=== PATIENT | female | born 1970 | race Caucasian/White ===

== ENCOUNTER → 2017-10-25 12:02 | Outpatient (CLI) | payer MEDICARE, MEDICAID, SELFPAY | PROVIDERS: PCP Family Medicine; Visit Provider Urology | DX: R31.9 Hematuria, unspecified (principal) | CPT/HCPCS: 87077; 87086; 87186 ==

== ENCOUNTER 2017-11-05 10:30 | Outpatient (BNVA) | payer MEDICARE, MEDICAID, SELFPAY | END 2017-11-05 10:31 | PROVIDERS: Visit Provider Urology | DX: N31.9 Neuromuscular dysfunction of bladder, unspecified (principal); N13.70 Vesicoureteral-reflux, unspecified; Z98.890 Other specified postprocedural states; Q05.9 Spina bifida, unspecified | CPT/HCPCS: 99212 ==

== ENCOUNTER 2017-11-15 08:33 | Outpatient (CLI) | payer MEDICARE, MEDICAID, SELFPAY | END 2017-11-15 08:53 | PROVIDERS: PCP Family Medicine; Visit Provider Nurse Practitioner Gerontology | DX: N31.9 Neuromuscular dysfunction of bladder, unspecified (principal); R35.0 Frequency of micturition | CPT/HCPCS: 64566; 81003; 99214 ==

== ENCOUNTER 2017-11-19 09:46 | Outpatient (CLI) | payer MEDICARE, MEDICAID, SELFPAY | END 2017-11-19 10:06 | PROVIDERS: PCP Family Medicine; Visit Provider Urology | DX: R10.9 Unspecified abdominal pain (principal) | CPT/HCPCS: 87077; 87086; 87186 ==

== ENCOUNTER → 2017-11-22 09:31 | Outpatient (BNVA) | payer MEDICARE, MEDICAID, SELFPAY | PROVIDERS: PCP Family Medicine; Visit Provider Nurse Practitioner Gerontology | DX: N31.9 Neuromuscular dysfunction of bladder, unspecified (principal); R35.0 Frequency of micturition | CPT/HCPCS: 64566; 99213 ==

== ENCOUNTER → 2017-11-29 08:39 | Outpatient (BNVA) | payer MEDICARE, MEDICAID, SELFPAY | PROVIDERS: Visit Provider Nurse Practitioner Gerontology | DX: N31.9 Neuromuscular dysfunction of bladder, unspecified (principal); R35.0 Frequency of micturition | CPT/HCPCS: 64566; 99213 ==

== ENCOUNTER → 2017-12-08 12:24 | Outpatient (BNVA) | payer MEDICARE, MEDICAID, SELFPAY | PROVIDERS: Visit Provider Nurse Practitioner Gerontology | DX: N31.9 Neuromuscular dysfunction of bladder, unspecified (principal); R35.0 Frequency of micturition | CPT/HCPCS: 64566; 81003; 99213 ==

== ENCOUNTER → 2017-12-13 09:17 | Outpatient (BNVA) | payer MEDICARE, MEDICAID, SELFPAY | PROVIDERS: Visit Provider Nurse Practitioner Gerontology | DX: N31.9 Neuromuscular dysfunction of bladder, unspecified (principal); R35.0 Frequency of micturition | CPT/HCPCS: 64566; 99213; 99214 ==

== ENCOUNTER → 2017-12-20 08:45 | Outpatient (BNVA) | payer MEDICARE, MEDICAID, SELFPAY | PROVIDERS: Visit Provider Nurse Practitioner Gerontology | DX: N31.9 Neuromuscular dysfunction of bladder, unspecified (principal) | CPT/HCPCS: 64566; 81003; 99214 ==

== ENCOUNTER 2017-12-27 00:35 | Outpatient (CLI) | payer MEDICARE, MEDICAID, SELFPAY ==
--- NOTE | 2017-12-27 08:15 | DI.US_ITS ---
SYMPTOM/DIAGNOSIS: CVA TENDERNESS,M54.9, DORSALGIA RENAL ULTRASOUND: The prevoid bladder volume measured 497 cc's. Both ureteral jets were visualized. No bladder mass or wall thickening is seen. Postvoid residual is 11 cc's. There is minimal trabeculation of the bladder wall. The kidneys are normal in size and show normal parenchymal thickness and echogenicity. No hydronephrosis or calcifications are seen. IMPRESSION: Trabeculated bladder wall. No evidence of hydronephrosis.
== END 2017-12-27 00:55 ==
PROVIDERS: PCP Family Medicine; Visit Provider Nurse Practitioner Gerontology
DX: N32.89 Other specified disorders of bladder (principal); R10.84 Generalized abdominal pain; M54.89 Other dorsalgia; N31.9 Neuromuscular dysfunction of bladder, unspecified
CPT/HCPCS: 64566; 76770; 99214

== ENCOUNTER → 2018-01-03 10:45 | Outpatient (BNVA) | payer MEDICARE, MEDICAID, SELFPAY | PROVIDERS: PCP Family Medicine; Visit Provider Urology | DX: N31.9 Neuromuscular dysfunction of bladder, unspecified (principal) | CPT/HCPCS: 64566; 99211; 99213 ==

== ENCOUNTER → 2018-01-11 08:07 | Outpatient (BNVA) | payer MEDICARE, MEDICAID, SELFPAY | PROVIDERS: PCP Family Medicine; Visit Provider Urology | DX: N31.9 Neuromuscular dysfunction of bladder, unspecified (principal) | CPT/HCPCS: 64566; 99212; 99213 ==

== ENCOUNTER 2018-01-16 10:23 | Outpatient (REF) | payer MEDICARE, MEDICAID, SELFPAY | END 2018-01-16 10:43 | LOC: LBN 10:23 | PROVIDERS: PCP Family Medicine; Visit Provider Urology | DX: N31.9 Neuromuscular dysfunction of bladder, unspecified (principal) | CPT/HCPCS: 87070; 87205 ==

== ENCOUNTER → 2018-01-18 08:15 | Outpatient (BNVA) | payer MEDICARE, MEDICAID, SELFPAY | PROVIDERS: PCP Family Medicine; Visit Provider Nurse Practitioner Gerontology | DX: N31.9 Neuromuscular dysfunction of bladder, unspecified (principal); R35.0 Frequency of micturition | CPT/HCPCS: 64566; 99214 ==

== ENCOUNTER 2018-01-18 09:39 | Outpatient (REF) | payer MEDICARE, MEDICAID, SELFPAY | END 2018-01-18 09:59 | LOC: LBN 09:39 | PROVIDERS: PCP Family Medicine; Visit Provider Nurse Practitioner Gerontology | DX: N20.9 Urinary calculus, unspecified (principal) | CPT/HCPCS: 87077; 87086; 87186 ==

== ENCOUNTER → 2018-01-24 10:15 | Outpatient (BNVA) | payer MEDICARE, MEDICAID, SELFPAY | PROVIDERS: PCP Family Medicine; Visit Provider Nurse Practitioner Gerontology | DX: N31.9 Neuromuscular dysfunction of bladder, unspecified (principal); R35.0 Frequency of micturition | CPT/HCPCS: 64566; 99213 ==

== ENCOUNTER → 2018-02-01 08:46 | Outpatient (BNVA) | payer MEDICARE, MEDICAID, SELFPAY | PROVIDERS: PCP Family Medicine; Visit Provider Nurse Practitioner Gerontology | DX: N31.9 Neuromuscular dysfunction of bladder, unspecified (principal); R35.0 Frequency of micturition | CPT/HCPCS: 64566; 99214 ==

== ENCOUNTER → 2018-04-01 08:44 | Outpatient (BNVA) | payer MEDICARE, MEDICAID, SELFPAY | PROVIDERS: PCP Family Medicine; Visit Provider Urology | DX: N31.9 Neuromuscular dysfunction of bladder, unspecified (principal); N13.70 Vesicoureteral-reflux, unspecified; Q05.9 Spina bifida, unspecified; Z87.440 Personal history of urinary (tract) infections | CPT/HCPCS: 51729; 51784; 81003; 99212 ==

== ENCOUNTER 2018-04-07 16:01 | Outpatient (REF) | payer MEDICARE, MEDICAID, SELFPAY | END 2018-04-07 16:21 | LOC: LBN 16:01 | PROVIDERS: PCP Family Medicine; Visit Provider Nurse Practitioner Gerontology | DX: R31.9 Hematuria, unspecified (principal) | CPT/HCPCS: 87086 ==

== ENCOUNTER 2018-04-11 09:02 | Day surgery (SDC) | payer MEDICARE, MEDICAID, SELFPAY ==
[2018-04-11] VITALS (7 sets, daily range): BP systolic 104–118; BP diastolic 60–86; PULSE 60–66; RESP 11–19; TEMP 36–36.7; O2SAT 94–100
[2018-04-11] MEDS: GENTAMICIN 120 MG in Normal Saline 100 ML 206 MG IVPB (10:15)
[2018-04-11] MEDS: Lactated Ringers 1,000 ML 80 ML IV (10:45)
--- NOTE | 2018-04-11 10:45 | BLADDER_PTH ---
PATIENT: JaradJune Maryanne LOC: [facility] U#:[id number] AGE/SX: 48/F ROOM: RE04/11/[address]: Candido Kasper MD : [id number] BED: DIS: 04/11/2018 SPEC #: [id number] RECD: 04/11/18 12:53 STATUS: ANI REQ #: [id number] KENYON: 04/11/18 10:[address]: Candido Kasper DEPT: Surgical Specimen RECD BY: Rosa Mason ENTERED: 04/11/18 12:54 SP TYPE: Bladder OTHR DR: Melanie Calhoun MD, DC Tissues: 1 - BLADDER BIOPSY Procedures: GROSS AND MICRO LEVEL 4 Comments: [id number]
[2018-04-11] MEDS: Lidocaine 2% Jelly 6 ML SYR (10:46)
--- NOTE | 2018-04-11 11:13 | DI.RAD_ITS ---
SYMPTOM/DIAGNOSIS: VESICOURETERIC REFLUX C-ARM FLUOROSCOPY: Fluoroscopy Time: 20.8 sec 4.79 mGy Fluoroscopy was provided in the O.R. for Dr. Kasper. Please see procedure note for details.
[2018-04-11] MEDS: Omnipaque 300 MG/ML 50 ML BTL (11:14)
--- NOTE | 2018-04-11 11:21 | W.PM.DSUDISC ---
Discharge Plan Disposition Patient Disposition: HOME Condition: Stable Discharge Details Reason For Visit: Hematuria Attending Provider: Candido Kasper Primary Care Provider: Melanie Calhoun Home Meds and New Rx's Prescriptions: No Action diclofenac sodium [Voltaren] 1 % gel 4 gm TP QID Qty: 100 RF: 0 ketorolac 10 mg tablet 10 mg PO Q8H PRN PRN (Reason: pain) Qty: 14 RF: 0 albuterol sulfate 2.5 MG/3 ML solution for nebulization 2.5 mg Inhalation BID PRNQty: 60 RF: 3 nebulizers [AeroEclipse II Nebulizer] 1 EACH misc 1 ea Miscellaneous TID PRNQty: 1 RF: 0 catheter [Bard Coude Tip Catheter] 1 EACH misc 1 ea Miscellaneous 1-2 Qty: 2 RF: 12 Proventil HFA 6.7 GM HFA aerosol inhaler 2 puff Inhalation Q4 H PRN PRNQty: 3 RF: 4 montelukast [Singulair] 10 MG tablet 10 mg PO DAILY Qty: 90 RF: 12 Spiriva with HandiHaler 18 MCG capsule, w/inhalation device 1 puff Inhalation DAILY Qty: 90 RF: 12 ibuprofen 600 MG tablet 600 mg PO Q6H PRN Qty: 30 RF: 6 epinephrine [EpiPen 2-Raji] 0.3 MG/0.3 ML auto-injector 0.3 mg IM ONCE MDD 1 PRNQty: 2 RF: 1 estradiol [Estrace] 42.5 GM cream 1 g VG 3 times weekly Qty: 1 RF: 11 Breo Ellipta 200-25 mcg/dose blister with device 1 inh IH DAILY Qty: 60 RF: 4 sennosides [Senokot] 1 TAB tablet 1 ea PO PRN PRNRF: 0 loratadine 10 mg tablet 20 mg PO HS RF: 0 Discharge Instructions Additional Instructions: F/U with me @ 2 weeks - will need to review pathology reports at that time Activity:: Activity as Tolerated Diet:: As Tolerated Discharge Orders Discharge Orders: Discharge Order (Routine); Ordered 04/11/18 Ordered By: Candido Kasper Discharge Data Discharge Comment: Pt self caths, so do not expect pt to void on hr own prior to discharge DS: Diagnosis Discharge Diagnosis (1) Hematuria: Status: Acute
--- NOTE | 2018-04-11 15:33 | ROE_ITS ---
DATE OF OPERATION: April 11, 2018 PREOPERATIVE DIAGNOSIS: Hematuria. POSTOPERATIVE DIAGNOSIS: Hematuria. PROCEDURE: Cystoscopy, bladder biopsy, fulguration of bladder, left retrograde pyelogram, left flexi ble ureteroscopy, fulguration of renal mucosa. SURGEON: Candido Kasper M.D. ANESTHESIA: General. COMPLICATIONS: None. ESTIMATED BLOOD LOSS: Minimal. HISTORY: This is a 48-year-old woman who has a history of a neurogenic bladder related to spina bifi da. She performs intermittent catheterization. She has had recurrent UTIs and recurrent episodes of hematuria. We recently did urodynamic studies that showed a low bladder pressure. She has had ureteral reimplan tation surgery in the past. She presents now for cystoscopy, biopsy and fulguration of bladder mucosa for her recurrent hematuria . On previous studies she has been found to have some hemorrhagic mucosa in the upper pole of her left kidney as well. We will plan on doing ureteroscopy and fulgurating this area. OPERATIVE REPORT: The patient was brought to the Operating Room on 04/11/18. After successful inducti on of general anesthesia, she was placed in the dorsal lithotomy position. Her genitalia was prepped and draped. A 22 Guyanese rigid cystoscope was passed through the urethra into the bladder. The bladder was inspec radha with a 30-degree lens. Numerous erythematous patches were seen on the bladder mucosa posteriorly. I suspect these are relat ed to the path of her catheter, but we went ahead and biopsied these areas using a cold cup biopsy fo rceps. The biopsies were sent to Pathology for permanent section. The biopsy sites were then cauter ized using the Holmium laser. We then identified the left ureteral orifice and did a retrograde pyelogram to outline the calices. We passed a Glidewire through the access catheter up to the upper pole calyx. We then passed a dual- lumen catheter and a second wire. We removed the dual-lumen catheter and advanced the flexible urete roscope over the working wire. We then inspected each of the calices. Again, the mucosa in the uppe r pole calices appeared more erythematous than the mid or lower pole calices. On biopsy and cytology we know that no atypia was identified so we simply went ahead and fulgurated the mucosa using a 272- micron Holmium laser fiber. At the completion of the procedure, no active bleeding was identified. All scopes and the safety wir e were removed. The patient tolerated this procedure well with no complications.
== END 2018-04-11 13:25 | disposition home or self-care (01) ==
PROVIDERS: PCP Family Medicine; Visit Provider Urology
PROC: (CPT 52354; principal; 2018-04-11 10:30)
DX: N30.21 Other chronic cystitis with hematuria (principal); N31.8 Other neuromuscular dysfunction of bladder; Z87.440 Personal history of urinary (tract) infections
CPT/HCPCS: 52354; 52204; 88305; 74420; J1100; J1580; J2405; Q9967

== ENCOUNTER 2018-04-26 09:38 | Outpatient (CLI) | payer MEDICARE, MEDICAID, SELFPAY ==
[2018-04-26 11:42] LABS: HCT 45.6 % (36.0-46.0); HGB 15.3 g/dL (12.0-15.5); Mean Corp. HGB Concentration 33.6 g/dL (32.0-36.0); Mean Corpuscular Hemoglobin 30.7 pg (27.0-33.0); Mean Corpuscular Volume 91.4 fL (80-95); Mean Platelet Volume 9.2 fL (8.0-11.0); Platelet Count 395 x1000/uL (130-400); RBC 4.99 m/cumm (4.00-5.20); RBC Distribution Width 14.1 % (11.7-14.6); White Blood Cell Count 9.72 k/cumm (4.4-10.8)
[2018-04-26 12:03] LABS: ALT 26 U/L (12-78); AST 15 U/L (15-37); Albumin 3.6 g/dL (3.4-5.0); Alkaline Phosphatase 88 U/L (46-116); BUN 14 mg/dL (7-18); Bilirubin, Total 0.3 mg/dL (0.2-1.0); CREATININE 0.88 mg/dL (0.55-1.02); Calcium 8.9 mg/dL (8.5-10.1); Chloride 103 mmol/L (98-107); Cholesterol 304 mg/dL (50-200); Glucose 97 mg/dL (70-100); HDL Cholesterol 43 mg/dL (40-60); LDL CHOLESTEROL 224 mg/dL (<100); Potassium 4.4 mmol/L (3.5-5.1); Sodium 140 mmol/L (136-145); TSH (W/Ref FT4) 1.09 uIU/mL (0.358-3.74); Total Protein 7.4 g/dL (6.4-8.2); Triglyceride 158 mg/dL (30-150)
== END 2018-04-26 09:58 ==
PROVIDERS: PCP Family Medicine; Visit Provider Family Medicine
DX: E78.5 Hyperlipidemia, unspecified (principal); R21 Rash and other nonspecific skin eruption; N20.9 Urinary calculus, unspecified; K29.80 Duodenitis without bleeding; N13.70 Vesicoureteral-reflux, unspecified; I10 Essential (primary) hypertension
CPT/HCPCS: 36415; 80053; 80061; 81003; 83721; 85027; 99213; 84443

== ENCOUNTER → 2018-05-31 10:57 | Outpatient (BNVA) | payer MEDICARE, MEDICAID, SELFPAY | PROVIDERS: PCP Family Medicine; Visit Provider Urology | DX: N31.9 Neuromuscular dysfunction of bladder, unspecified (principal); R31.9 Hematuria, unspecified | CPT/HCPCS: 81003; 99213 ==

== ENCOUNTER → 2018-08-02 10:11 | Outpatient (BNVA) | payer MEDICARE, MEDICAID, SELFPAY | PROVIDERS: PCP Family Medicine; Visit Provider Urology | DX: N13.5 Crossing vessel and stricture of ureter without hydronephrosis (principal); Q05.9 Spina bifida, unspecified; I10 Essential (primary) hypertension; N31.9 Neuromuscular dysfunction of bladder, unspecified | CPT/HCPCS: 99213 ==

== ENCOUNTER 2018-08-04 01:33 | Outpatient (CLI) | payer MEDICARE, MEDICAID, SELFPAY ==
--- NOTE | 2018-08-04 08:30 | DI.NM_ITS ---
SYMPTOMS/DIAGNOSIS: CHECK DIFFERENTIAL RENAL FUNCTION, PHYSIOLOGIC OBSTRUCTION, MRI AT [facility] [place]OWING UPJ OBSTRUCTION LASIX RENOGRAM: The study was carried out according to the usual protocol. 10.0 millicuries of Technetium 99 M DTPA and 25 milligrams of Lasix were administered 12 minutes post intravenous injection of DTPA. There is evident good bilateral renal function and symmetrical clearing of the kidneys is noted. There is no evidence of obstruction.
== END 2018-08-04 01:53 ==
PROVIDERS: PCP Family Medicine; Visit Provider Urology
DX: N13.5 Crossing vessel and stricture of ureter without hydronephrosis (principal)
CPT/HCPCS: 78708

== ENCOUNTER 2018-09-16 09:45 | Outpatient (CLI) | payer MEDICARE, MEDICAID, SELFPAY ==
[2018-09-16 11:21] LABS: ESR 22 MM/HR (0-20)
[2018-09-19 14:58] LABS: ANA Interpretation Positive (NEGAT); ANA Titer Pattern 1:160 Speckled
== END 2018-09-16 10:05 ==
PROVIDERS: Urology; PCP Family Medicine; Visit Provider Family Medicine
DX: R21 Rash and other nonspecific skin eruption; N31.9 Neuromuscular dysfunction of bladder, unspecified
CPT/HCPCS: 85652; 87077; 86038; 87086; 87186

== ENCOUNTER 2018-10-03 19:17 | Outpatient (REF) | payer MEDICARE, MEDICAID, SELFPAY | END 2018-10-03 19:37 | LOC: LBN 19:17 | PROVIDERS: PCP Family Medicine; Visit Provider Urology | DX: N31.9 Neuromuscular dysfunction of bladder, unspecified (principal); R82.90 Unspecified abnormal findings in urine | CPT/HCPCS: 87086 ==

== ENCOUNTER → 2018-10-24 09:56 | Outpatient (BNVA) | payer MEDICARE, MEDICAID, SELFPAY | PROVIDERS: PCP Family Medicine; Visit Provider Urology | DX: R33.9 Retention of urine, unspecified (principal); N31.9 Neuromuscular dysfunction of bladder, unspecified; R31.9 Hematuria, unspecified | CPT/HCPCS: 81003 ==

== ENCOUNTER → 2018-11-08 10:01 | Outpatient (BNVA) | payer MEDICARE, MEDICAID, SELFPAY | PROVIDERS: PCP Family Medicine; Visit Provider Urology | DX: R76.8 Other specified abnormal immunological findings in serum (principal); N31.9 Neuromuscular dysfunction of bladder, unspecified; I10 Essential (primary) hypertension; Q05.9 Spina bifida, unspecified | CPT/HCPCS: 99213 ==

== ENCOUNTER 2018-11-29 09:26 | Outpatient (CLI) | payer MEDICARE, MEDICAID, SELFPAY ==
--- NOTE | 2018-11-29 16:23 | DI.RAD_ITS ---
EXAM: XR SHOULDER LT COMPLETE 2+V INDICATION: fell on l shoulder ? dl, fx, etc M25.512. COMPARISON: LEFT SHOULDER COMPLETE from 05/13/2009 TECHNIQUE: 2D digital imaging was performed. FINDINGS: There is no evidence of an fracture or dislocation. Mild degenerative changes are identified.
== END 2018-11-29 09:46 ==
PROVIDERS: PCP Family Medicine; Visit Provider Family Medicine
DX: M25.512 Pain in left shoulder (principal)
CPT/HCPCS: 73030

== ENCOUNTER 2018-12-06 16:15 | Outpatient (REF) | payer MEDICARE, MEDICAID, SELFPAY | END 2018-12-06 16:35 | LOC: LBN 16:15 | PROVIDERS: PCP Family Medicine; Visit Provider Urology | DX: R30.0 Dysuria (principal) | CPT/HCPCS: 87077; 87086; 87186 ==

== ENCOUNTER 2019-01-10 01:21 | Outpatient (CLI) | payer MEDICARE, MEDICAID, SELFPAY ==
--- NOTE | 2019-01-10 10:43 | DI.US_ITS ---
EXAM: US RENAL CLINICAL HISTORY: Neurogenic bladder,N31.9-neuromuscular bladder dysfunction, ? Hydronephrosis TECHNIQUE: Ultrasound performed using standard protocol. COMPARISON: ABD/PELVIS WO W CONTRAST from 07/02/2017 US renal from 12/27/2017 from 08/04/2018 FINDINGS: The prevoid bladder volume measured 345 cc. There is slight bladder wall trabeculation. No bladder calculi or diverticula are seen. There is no postvoid residual. Neither ureteral jet was visualize d. The right kidney measures 10.1 cm in length and the left kidney measures 9.4 cm in length. No hy dronephrosis is seen. The parenchymal echogenicity appears normal. IMPRESSION: Mildly trabeculated bladder. No evidence of hydronephrosis.
== END 2019-01-10 01:41 ==
PROVIDERS: PCP Family Medicine; Visit Provider Urology
DX: N31.9 Neuromuscular dysfunction of bladder, unspecified (principal); N32.89 Other specified disorders of bladder
CPT/HCPCS: 76770; 99213

== ENCOUNTER 2019-01-30 09:53 | Outpatient (CLI) | payer MEDICARE, MEDICAID, SELFPAY ==
[2019-01-30 12:26] LABS: Bilirubin Negative (Negative); Blood Negative (Negative); Clarity Clear (Clear); Glucose Negative (Negative); Ketones Negative (Negative); Leukocyte Esterase Negative (Negative); Nitrite Negative (Negative); Urobilinogen 0.2 EU/dL (Up TO 0.2); pH 5.5 (5-8)
== END 2019-01-30 10:13 ==
PROVIDERS: PCP Family Medicine; Visit Provider Urology
DX: R30.0 Dysuria (principal); R31.9 Hematuria, unspecified; N31.9 Neuromuscular dysfunction of bladder, unspecified
CPT/HCPCS: 87077; 81003; 87086; 87186

== ENCOUNTER 2019-02-14 09:01 | Outpatient (REF) | payer MEDICARE, MEDICAID, SELFPAY ==
[2019-02-14 09:48] LABS: Bilirubin Negative (Negative); Blood Negative (Negative); Clarity Clear (Clear); Glucose Negative (Negative); Ketones Negative (Negative); Leukocyte Esterase Negative (Negative); Nitrite Negative (Negative); Specific Gravity <= 1.005 (1.005-1.025); Urobilinogen 0.2 EU/dL (Up TO 0.2); pH 5.5 (5-8)
== END 2019-02-14 09:21 ==
LOC: LBN 09:01
PROVIDERS: PCP Family Medicine; Visit Provider Urology
DX: R10.9 Unspecified abdominal pain (principal)
CPT/HCPCS: 81003; 87086

== ENCOUNTER 2019-03-02 00:13 | Outpatient (CLI) | payer MEDICARE, MEDICAID, SELFPAY ==
--- NOTE | 2019-03-02 08:55 | DI.MRI_ITS ---
EXAM: MR UPPER JOINT LT WO CLINICAL HISTORY: ? LEFT ROTATOR CUFF TEAR M75.102. TECHNIQUE: Multiplanar multisequence MRI was performed. COMPARISON: XR SHOULDER LT COMPLETE 2+V from 11/29/2018 FINDINGS: Supraspinatus tendon: There is hyperintense signal seen within the supraspinatus tendon anteriorly co nsistent with a partial tear. Infraspinatus, teres minor: Unremarkable. Subscapularis tendon: Tendinosis. Biceps tendon: Unremarkable. Glenoid labrum: Unremarkable. Bones: Within normal limits. No evidence of an occult fracture or avascular necrosis. Mild degenera tive signal changes seen at the acromioclavicular joint. Subchondral cyst seen in the glenoid. Articular cartilage: Within normal limits. Soft tissues: Small amount of fluid seen in the subacromial subdeltoid bursa. No soft tissue mass. Ligaments: Coracoclavicular ligaments are unremarkable. Muscles. Within normal limits. IMPRESSION: 1. Partial tear of the supraspinatus tendon. 2. Subscapularis tendinosis. 3. Degenerative changes in the shoulder.
== END 2019-03-02 00:33 ==
PROVIDERS: PCP Family Medicine; Visit Provider Family Medicine
DX: M25.512 Pain in left shoulder (principal); M75.102 Unspecified rotator cuff tear or rupture of left shoulder, not specified as traumatic; M75.82 Other shoulder lesions, left shoulder; M19.012 Primary osteoarthritis, left shoulder
CPT/HCPCS: 73221

== ENCOUNTER 2019-03-29 11:05 | Outpatient (CLI) | payer MEDICARE, MEDICAID, SELFPAY ==
--- NOTE | 2019-03-29 10:08 | DI.RAD_ITS ---
EXAM: XR SHOULDER LT COMPLETE 2+V CLINICAL HISTORY: Pain. TECHNIQUE: 2D digital imaging was performed. COMPARISON: XR SHOULDER LT COMPLETE 2+V from 11/29/2018 FINDINGS: BONES: No acute fracture is present. No bony destructive lesion is seen. JOINTS: No dislocation present. SOFT TISSUE: Soft tissue calcification adjacent to the greater tuberosity likely reflecting calcific tendinitis. IMPRESSION: No change in appearance of the left shoulder.
== END 2019-03-29 11:25 ==
PROVIDERS: PCP Family Medicine; Referring Provider Family Medicine; Visit Provider Student in an Organized Health Care Education/Training Program
DX: M75.32 Calcific tendinitis of left shoulder; S46.012A Strain of muscle(s) and tendon(s) of the rotator cuff of left shoulder, initial encounter; X58.XXXA Exposure to other specified factors, initial encounter; M75.02 Adhesive capsulitis of left shoulder; M75.22 Bicipital tendinitis, left shoulder; M75.52 Bursitis of left shoulder
CPT/HCPCS: 20610; 99204; 99215; 73030; J1030

== ENCOUNTER 2019-05-01 20:15 | Outpatient (REF) | payer MEDICARE, MEDICAID, SELFPAY ==
[2019-05-01 20:25] LABS: Bilirubin Negative (Negative); Blood Trace-lysed (Negative); Clarity Clear (Clear); Glucose Negative (Negative); Ketones Negative (Negative); Leukocyte Esterase Negative (Negative); Nitrite Negative (Negative); Specific Gravity >= 1.030 (1.005-1.025); Urobilinogen 0.2 EU/dL (Up TO 0.2); pH 5.5 (5-8)
[2019-05-01 20:51] LABS: Bacteria Many HPF (Negative); C & S Indicated? Yes; Casts Negative LPF (Negative); Crystals Negative HPF (Negative); Epithelial Cells Few HPF (Negative); Mucus Negative (Negative); RBC Negative HPF (0-2); WBC 0-2 HPF (0-5)
== END 2019-05-01 20:35 ==
LOC: LBN 20:15
PROVIDERS: PCP Family Medicine; Visit Provider Family Medicine
DX: R35.0 Frequency of micturition (principal)
CPT/HCPCS: 87077; 81003; 81015; 87086; 87186

== ENCOUNTER 2019-05-04 02:47 | Outpatient (CLI) | payer MEDICARE, MEDICAID, SELFPAY ==
--- NOTE | 2019-05-04 13:30 | DI.US_ITS ---
EXAM: US PELVIS AND TRANSVAGINAL CLINICAL HISTORY: RT OVARIAN CYST, N83.201 TECHNIQUE: Ultrasound performed using standard protocol. COMPARISON: No exams were available for comparison FINDINGS: Patient is status post hysterectomy and left oophorectomy. There is a 2.1 centimeter maximal dimensio n simple cyst of the right ovary. There is no evidence of torsion. There is no free fluid or hydronep hrosis. The bladder is unremarkable. IMPRESSION: 2.1 centimeter simple cyst of the right ovary. Status post left oophorectomy and hysterectomy. DATA REPOSITORY:
== END 2019-05-04 03:07 ==
PROVIDERS: PCP Family Medicine; Visit Provider Family Medicine
DX: N83.291 Other ovarian cyst, right side (principal); Z90.721 Acquired absence of ovaries, unilateral; Z90.710 Acquired absence of both cervix and uterus
CPT/HCPCS: 76830; 76856

== ENCOUNTER 2019-05-15 00:46 | Outpatient (CLI) | payer MEDICARE, MEDICAID, SELFPAY ==
--- NOTE | 2019-05-15 15:10 | DI.US_ITS ---
APPROVED REPORT EXAM: Comprehensive 2D, Doppler, and color-flow Echocardiogram Patient Location: [facility] Supervisor: Jeannine Ngo RDCS (AE) Indications: Edema,CHF Conclusion Left Ventricle : The left ventricle is normal size. The left ventricular systolic function is normal. There is normal left ventricular wall thickness. There is normal LV segmental wall motion. The lef t ventricular diastolic function is normal. LVEF is 65-70%. Right Ventricle : The right ventricle is normal size. The right ventricular systolic function is norm al. Atria : The left atrium size is normal. The right atrium size is normal. Valves: There are no hemodynamically significant valvular lesions. Great Vessels : The ascending aorta is mildly dilated. IVC is normal in size and collapses >50% with inspiration. There is not enough tricuspid regurgitation to estimate RVSP. There are no prior echocardiographic images available for comparison. Wall motion Left Ventricle The left ventricle is normal size. The left ventricular systolic function is normal. There is normal left ventricular wall thickness. There is normal LV segmental wall motion. The left ventricular diast olic function is normal. LVEF is 65-70%. Right Ventricle The right ventricle is normal size. The right ventricular systolic function is normal. Atria The left atrium size is normal. The right atrium size is normal. Aortic Valve Aortic valve is probably trileaflet. There is no aortic valvular stenosis. No aortic regurgitation is present. Mitral Valve The mitral valve is normal in structure. No evidence of mitral valve stenosis. Trace mitral regurgita tion. Tricuspid Valve The tricuspid valve is normal in structure. There is no tricuspid valve stenosis. Trace tricuspid reg urgitation. Pulmonic Valve The pulmonary valve is normal in structure. There is no pulmonic valvular stenosis. There is no pulmo nagi valvular regurgitation. Great Vessels The aortic root is normal in size. The pulmonary artery is normal. The ascending aorta is mildly dila radha. IVC is normal in size and collapses >50% with inspiration. There is not enough tricuspid regurgi tation to estimate RVSP. Pericardium There is no pericardial effusion. 2D Dimensions IVSD d PLAX 0.82 cm F: 0.6-1.0 LV Vol A2C d MOD 68.3 mL LVPW d PLAX 0.86 cm F: 0.6 - 1.0 LV Vol A4C d MOD 78.6 mL LVID d PLAX 4.43 cm F: 3.8 - 5.2 LA vol/ BSA A2C s A-L 23.9 mL/m2 LVDs 3.10 cm F: 2.2 - 3.5 LA vol/ BSA A4C s A-L 21.5 mL/m2 Ao Root d 2.66 cm F: 2.7 - 3.3 LA Vol/ BSA Biplane s A-L 24.5 mL/m2 RA Area A4C 13.95 cm2 LA Area A4C s MOD 14.85 cm2 RA Vol/ BSA A4C s A-L 21.0 mL/m2 LA Area A2C s MOD 14.48 cm2 Ao Asc Diam d 3.19 cm F: 2.3 - 3.1 LV EF A4C MOD 60.8 % LV EF Teichholz 57.1 % LV EF A2C MOD 72.5 % LVEF (Colon's) 65.99 % F: 54 - 74 LV EF Biplane MOD 66.0 % LV Volume 57.57 mL F: 46 - 106 LV Volume Index 33.08 mL/m2 F: 29 - 61 LV Vol Biplane MOD 73.2 mL FS 29.75 % LV Diastology MV E' medial 0.098 (>0.07 m/s) E/A Ratio 1.6 LV E/e MED 9.15 (<14) MV E Vmax 0.90 (0.4-1.3 m/s) MV E' lateral 0.141 (>0.1 m/s) MV A Vmax 0.55 (0.4-1.3 m/s) LV E/e LAT 6.35 (<14) MV E/A Ratio 1.55 MV E/E' medial 9.16 MV E/E' lateral 6.36 Aortic Valve LVOT Area 2.57 cm2 AoV Area Vmax 1.87 cm2 LVOT Vmax 1.00 m/s AoV Area/ BSA (Vmax) 1.07 cm2/m2 LVOT Mean Rodolfo. 0.60 m/s BRENT Mean Rodolfo. 1.50 cm2 LVOT Peak Grad 4.0 mmHg BRENT Mean Rodolfo. Index 0.86 cm2/m2 LVOT Mean Grad 1.7 mmHg LVOT VTI 0.229 m LVOT Diam s 1.80 cm (M/F) 1.5-2.5 AoV Vmax 1.37 (0.5-1.3 m/s) Velocity Ratio 0.72 AoV Mean Rodolfo. 1.02 m/s AoV Peak Grad 7.5 mmHg LVOT SV 58.70 mL AoV Mean Grad 4.5 (<5 mmHg) AoV VTI 0.324 (0.18-0.25 m) AoV Area VTI 1.81 (2.5-4.5 cm2) AoV Area/ BSA (VTI) 1.04 cm/m2 Mitral Valve MV DT 164 (160-240 msec) MV PHT 47 msec MV Area PHT 4.63 cm2 Pulmonary Valve PV Vmax 0.75 (0.5-1.5 m/s) RVOT Peak Gr. 1.27 mmHg PV Peak Grad 2.3 mmHg RVOT Mean Gr. 0.75 mmHg PV Mean Grad 1.4 mmHg RVOT VTI 0.153 m PV VTI 0.204 m RVOT Vmax 0.56 m/s Tricuspid Valve RA Pressure 3.00 mmHg
== END 2019-05-15 01:06 ==
PROVIDERS: PCP Family Medicine; Visit Provider Family Medicine
DX: I50.9 Heart failure, unspecified (principal); R60.0 Localized edema
CPT/HCPCS: 93306

== ENCOUNTER 2019-06-30 02:18 | Outpatient (CLI) | payer MEDICARE, MEDICAID, SELFPAY ==
[2019-06-30 16:52] LABS: Bilirubin Negative (Negative); Blood Negative (Negative); Clarity Clear (Clear); Glucose Negative (Negative); Ketones Negative (Negative); Leukocyte Esterase Negative (Negative); Nitrite Negative (Negative); Urobilinogen 0.2 EU/dL (Up TO 0.2); pH 5.5 (5-8)
== END 2019-06-30 02:38 ==
PROVIDERS: PCP Family Medicine; Visit Provider Urology
DX: R31.9 Hematuria, unspecified (principal)
CPT/HCPCS: 81003; 87086

== ENCOUNTER → 2019-07-18 08:32 | Outpatient (BNVA) | payer MEDICARE, MEDICAID, SELFPAY | PROVIDERS: PCP Family Medicine; Referring Provider Family Medicine; Visit Provider Student in an Organized Health Care Education/Training Program | DX: S46.012D Strain of muscle(s) and tendon(s) of the rotator cuff of left shoulder, subsequent encounter; X58.XXXD Exposure to other specified factors, subsequent encounter; M75.02 Adhesive capsulitis of left shoulder; M75.22 Bicipital tendinitis, left shoulder; M75.52 Bursitis of left shoulder | CPT/HCPCS: 99213 ==

== ENCOUNTER 2019-07-21 03:38 | Outpatient (CLI) | payer MEDICARE, MEDICAID, SELFPAY ==
--- NOTE | 2019-07-21 06:30 | DI.NM_ITS ---
EXAM: NM DTPA RENOGRAM W LASIX CLINICAL HISTORY: neurogenic bladder, ureteropelvic junction obstruction,f/u to prev,n31.9. COMPARISON: NM from 08/04/2018 EXAMINATION: DTPA renogram with Lasix was performed according to the usual protocol, 11.5 millicurie s of technetium 99 labeled DTPA was injected intravenously. 24 milligrams Lasix was injected intrave nously 12 minutes post DTPA administration. Split function determination shows 42 percent left and 58 percent right kidney, this is similar to fi ndings of 43.5 percent left and 56.5 percent right kidney on prior study of August 04, 2018. Examination of the sequential images shows fairly symmetrical timing renal cortical enhancement and r enal pelvic excretion bilaterally. There is no evidence urinary tract obstruction on this study. FINDINGS: IMPRESSION:
[2019-07-21] MEDS: Furosemide 40 MG/4 ML VIAL 24 MG IVP (13:09)
== END 2019-07-21 03:58 ==
PROVIDERS: PCP Family Medicine; Visit Provider Urology
DX: N31.9 Neuromuscular dysfunction of bladder, unspecified (principal); N13.5 Crossing vessel and stricture of ureter without hydronephrosis
CPT/HCPCS: 78708; J1940

== ENCOUNTER → 2019-07-25 07:48 | Outpatient (BNVA) | payer MEDICARE, MEDICAID, SELFPAY | PROVIDERS: PCP Family Medicine; Referring Provider Family Medicine; Visit Provider Urology | DX: N31.9 Neuromuscular dysfunction of bladder, unspecified (principal); Z87.440 Personal history of urinary (tract) infections; I10 Essential (primary) hypertension | CPT/HCPCS: 99213 ==

== ENCOUNTER 2019-08-01 00:33 | Outpatient (CLI) | payer MEDICARE, MEDICAID, SELFPAY ==
--- NOTE | 2019-08-01 07:59 | DI.US_ITS ---
EXAM: US RENAL CLINICAL HISTORY: neurogenic bladder,hematuria,n31.9,r31.9,? hydronephrosis. TECHNIQUE: Renteria scale, color and spectral Doppler were used. COMPARISON: CT ABD/PELVIS WO W CONTRAST from 07/02/2017 US US RENAL from 01/10/2019 US US PELVIS TRANSVAGINAL from 05/04/2019 FINDINGS: Renal size in cm: Right: 11.7 left: 8.4 Echogenicity: Normal Hydronephrosis: No Cyst or mass: No Nephrolithiasis: No Other findings: None Bladder:Minimal wall trabeculation. No thickening is visible. There is no evidence of bladder calcu li or mass. Prevoid vol: 439 Postvoid vol:0 Both ureteral jets were visualized. IMPRESSION: Mild bladder wall trabeculation. No evidence of hydronephrosis. Normal postvoid residual. DATA REPOSITORY:
== END 2019-08-01 00:53 ==
PROVIDERS: PCP Family Medicine; Visit Provider Urology
DX: R31.9 Hematuria, unspecified (principal); N32.89 Other specified disorders of bladder; N31.8 Other neuromuscular dysfunction of bladder; J30.1 Allergic rhinitis due to pollen; I10 Essential (primary) hypertension
CPT/HCPCS: 76770; 99213

== ENCOUNTER 2019-08-01 13:45 | Outpatient (REF) | payer MEDICARE, MEDICAID, SELFPAY ==
[2019-08-01 15:08] LABS: Abs Immature Grans 0.03 k/cumm (0.0-0.09); Absolute Basophil Count 0.04 k/cumm (0.0-0.2); Absolute Eosinophil Count 0.18 k/cumm (0.0-0.7); Absolute Lymphocyte Count 2.01 k/cumm (1.2-3.4); Absolute Monocyte Count 0.35 k/cumm (0.11-0.7); Absolute Neutrophil Count 5.79 k/cumm (1.2-6.7); Basophils % 0.5; Eosinophils % 2.1; HCT 43.5 % (36.0-46.0); HGB 14.3 g/dL (12.0-15.5); Immature Grans % 0.4 %; Lymphocytes % 23.9; Mean Corp. HGB Concentration 32.9 g/dL (32.0-36.0); Mean Corpuscular Hemoglobin 29.9 pg (27.0-33.0); Mean Platelet Volume 9.3 fL (8.0-11.0); Monocytes % 4.2; Neutrophils % 68.9; Platelet Count 437 x1000/uL (130-400); RBC 4.78 m/cumm (4.00-5.20); RBC Distribution Width 13.8 % (11.7-14.6)
[2019-08-01 15:48] LABS: ALT 28 U/L (14-59); AST 18 U/L (15-37); Albumin 3.6 g/dL (3.4-5.0); Alkaline Phosphatase 66 U/L (46-116); BUN 11 mg/dL (7-18); Bilirubin, Total 0.3 mg/dL (0.2-1.0); CREATININE 0.88 mg/dL (0.55-1.02); Calcium 8.8 mg/dL (8.5-10.1); Chloride 103 mmol/L (98-107); Glucose 104 mg/dL (74-106); Potassium 4.1 mmol/L (3.5-5.1); Sodium 138 mmol/L (136-145); Total Protein 7.5 g/dL (6.4-8.2)
== END 2019-08-01 14:05 ==
LOC: LBN 13:45
PROVIDERS: PCP Family Medicine; Visit Provider Urology
DX: N31.9 Neuromuscular dysfunction of bladder, unspecified (principal); R31.9 Hematuria, unspecified; J30.1 Allergic rhinitis due to pollen
CPT/HCPCS: 80053; 85025

== ENCOUNTER → 2019-10-18 08:15 | Outpatient (BNVA) | payer MEDICARE, MEDICAID, SELFPAY | PROVIDERS: PCP Family Medicine; Referring Provider Family Medicine; Visit Provider Student in an Organized Health Care Education/Training Program | DX: R52 Pain, unspecified (principal); S46.012D Strain of muscle(s) and tendon(s) of the rotator cuff of left shoulder, subsequent encounter; X58.XXXD Exposure to other specified factors, subsequent encounter; M75.52 Bursitis of left shoulder; M75.22 Bicipital tendinitis, left shoulder; M75.02 Adhesive capsulitis of left shoulder | CPT/HCPCS: 99214 ==

== ENCOUNTER 2019-10-20 02:00 | Outpatient (CLI) | payer MEDICARE, MEDICAID, SELFPAY ==
--- NOTE | 2019-10-20 15:30 | DI.MRI_ITS ---
EXAM: MR UPPER JOINT LT WO CLINICAL HISTORY: LT SHOULDER PAIN, BURSITIS, TENDINITIS,ADHESIVE CAPSULITIS,M75.52,M75.22,. TECHNIQUE: Multiplanar multisequence MRI was performed. CONTRAST MATERIAL: Noncontrast. COMPARISON: 02 March 2019. FINDINGS: Bones: There is no fracture or contusion pattern. The acromioclavicular joint is normal. There is a minimal amount of fluid in the subacromial subdeltoid bursa. There is some apparent impingement by the dista l clavicle on the supraspinatus muscle.. Rotator Cuff: There is a minimal amount of soft of high signal distally in the supraspinatus tendon which could ind icate small focal tear. The infraspinatus tendon is unremarkable.. The subscapularis and teres diana r are normal. Labrum and biceps anchor: The biceps tendon is located. The anchor is well maintained. Degenerative changes are noted of the an terior labrum. There are subchondral cysts in the anterior glenoid. IMPRESSION: Question of a small tear of the distal supraspinatus tendon. Minimal subacromial subdeltoid bursal f luid. Degenerative changes of the anterior glenoid. DATA REPOSITORY:
== END 2019-10-20 02:20 ==
PROVIDERS: PCP Family Medicine; Visit Provider Student in an Organized Health Care Education/Training Program
DX: M25.512 Pain in left shoulder (principal); M19.012 Primary osteoarthritis, left shoulder
CPT/HCPCS: 73221

== ENCOUNTER → 2019-10-31 11:05 | Outpatient (BNVA) | payer MEDICARE, MEDICAID, SELFPAY | PROVIDERS: PCP Family Medicine; Referring Provider Family Medicine; Visit Provider Student in an Organized Health Care Education/Training Program | DX: S46.012A Strain of muscle(s) and tendon(s) of the rotator cuff of left shoulder, initial encounter (principal); X58.XXXD Exposure to other specified factors, subsequent encounter; M75.22 Bicipital tendinitis, left shoulder; M75.52 Bursitis of left shoulder; M75.32 Calcific tendinitis of left shoulder | CPT/HCPCS: 99213 ==

== ENCOUNTER 2020-01-24 11:36 | Outpatient (CLI) | payer MEDICARE, MEDICAID, SELFPAY ==
--- NOTE | 2020-01-24 11:00 | DI.RAD_ITS ---
EXAM: XR SHOULDER LT COMPLETE 2+V CLINICAL HISTORY: F/u. TECHNIQUE: 2D digital imaging was performed. COMPARISON: CR XR SHOULDER LT COMPLETE 2+V from 03/29/2019 MR MR UPPER JOINT LT WO from 10/20/2019 FINDINGS: BONES: No acute fracture is present. No bony destructive lesion is seen. JOINTS: No dislocation present. Tiny calcification is again seen adjacent to the greater tuberosity l ikely reflecting calcific tendinitis. SOFT TISSUE: Normal. IMPRESSION: Unremarkable radiographs of the left shoulder. DATA REPOSITORY: RADIATION DOSE DELIVERED:
== END 2020-01-24 11:56 ==
PROVIDERS: PCP Family Medicine; Referring Provider Family Medicine; Visit Provider Student in an Organized Health Care Education/Training Program
DX: M75.52 Bursitis of left shoulder (principal); Z47.89 Encounter for other orthopedic aftercare; M25.512 Pain in left shoulder
CPT/HCPCS: 99213; 73030

== ENCOUNTER 2020-02-27 02:03 | Outpatient (CLI) | payer MEDICARE, MEDICAID, SELFPAY ==
[2020-02-27 08:58] LABS: Bilirubin Negative (Negative); Blood Negative (Negative); Clarity Clear (Clear); Glucose Negative (Negative); Ketones Negative (Negative); Leukocyte Esterase Trace (Negative); Nitrite Negative (Negative); Specific Gravity 1.015 (1.005-1.025); Urobilinogen 0.2 EU/dL (Up TO 0.2); pH 6.5 (5-8)
[2020-02-27 09:27] LABS: Bacteria Many HPF (Negative); C & S Indicated? Yes; Casts Negative LPF (Negative); Crystals Negative HPF (Negative); Epithelial Cells Few HPF (Negative); Mucus Negative (Negative); RBC 0-2 HPF (0-2)
== END 2020-02-27 02:23 ==
PROVIDERS: PCP Family Medicine; Visit Provider Urology
DX: R82.998 Other abnormal findings in urine (principal); R10.9 Unspecified abdominal pain
CPT/HCPCS: 87077; 81003; 81015; 87086; 87186

== ENCOUNTER 2020-03-27 13:40 | Outpatient (CLI) | payer MEDICARE, MEDICAID, SELFPAY | END 2020-03-27 14:00 | PROVIDERS: PCP Family Medicine; Visit Provider Nurse Practitioner Gerontology | DX: N39.0 Urinary tract infection, site not specified (principal) | CPT/HCPCS: 87077; 87086; 87186 ==

== ENCOUNTER 2020-04-07 01:05 | Outpatient (RCR) | payer MEDICARE, MEDICAID, SELFPAY ==
[2020-04-02] MEDS: Normal Saline Flush 10 ML SYR IVP (11:35)
[2020-04-03] MEDS: Normal Saline Flush 10 ML SYR IVP (12:10)
[2020-04-04] MEDS: Normal Saline Flush 10 ML SYR IVP (11:57)
[2020-04-05] MEDS: Normal Saline Flush 10 ML SYR IVP (11:53)
[2020-04-06] MEDS: Normal Saline Flush 10 ML SYR IVP (13:22)
[2020-04-07] MEDS: Normal Saline Flush 10 ML SYR IVP (12:08)
== END 2020-04-07 23:59 | disposition home or self-care (01) ==
LOC: INF 01:05
PROVIDERS: PCP Family Medicine; Visit Provider Nurse Practitioner Gerontology
DX: N39.0 Urinary tract infection, site not specified (principal)
CPT/HCPCS: 96365; J0696

== ENCOUNTER 2020-04-08 03:22 | Outpatient (RCR) | payer MEDICARE, MEDICAID, SELFPAY ==
[2020-04-08] MEDS: Normal Saline Flush 10 ML SYR IVP (12:25)
== END 2020-05-05 23:59 | disposition home or self-care (01) ==
LOC: INF 03:22
PROVIDERS: PCP Family Medicine; Visit Provider Nurse Practitioner Gerontology
DX: N39.0 Urinary tract infection, site not specified (principal); Z79.2 Long term (current) use of antibiotics
CPT/HCPCS: 96365; J0696

== ENCOUNTER → 2020-04-15 14:08 | Outpatient (BNVA) | payer MEDICARE, MEDICAID, SELFPAY | PROVIDERS: PCP Family Medicine; Referring Provider Family Medicine; Visit Provider Nurse Practitioner Gerontology | DX: N31.9 Neuromuscular dysfunction of bladder, unspecified (principal); Z87.440 Personal history of urinary (tract) infections | CPT/HCPCS: 81003; 99213 ==

== ENCOUNTER 2020-04-29 01:54 | Outpatient (CLI) | payer MEDICARE, MEDICAID, SELFPAY ==
--- NOTE | 2020-04-29 07:30 | DI.US_ITS ---
EXAM: US RENAL CLINICAL HISTORY: r/o hydronephrosis,NEUROGENIC BLADDER,N31.9 TECHNIQUE: Ultrasound of both kidneys performed using standard protocol. US US RENAL from 08/01/2019 Abdominal MRI July 2018 outside institution was reviewed FINDINGS: RIGHT KIDNEY: Measures 9.8 cm in length. No cysts evident. Normal cortical thickness and corticomedullary different iation .No solid masses No intrarenal calculi nor hydronephrosis. LEFT KIDNEY: Measures 9.1 cm in length. No cysts evident. Normal cortical thickness and corticomedullary differen tiaion. No solids masses. No intrarenal calculi nor hydonephrosis. URINARY BLADDER: Prevoid volume is 405 cc Postvoid volume is 0 cc, however, please note that the patient used a catheter to empty the urinary b ladder. No evidence of bladder mass nor diverticuli. IMPRESSION: 1. No significant ultrasound findings in the kidneys. No hydronephrosis. 2. No obvious abnormality in the urinary bladder. No masses nor diverticuli evident in the bladder. Please note that the patient used a catheter to empty the bladder and this resulted in a negligible p ostvoid volume within the bladder lumen. DATA REPOSITORY:
== END 2020-04-29 01:55 ==
PROVIDERS: PCP Family Medicine; Visit Provider Urology
DX: N31.9 Neuromuscular dysfunction of bladder, unspecified (principal)
CPT/HCPCS: 76770

== ENCOUNTER → 2020-05-01 08:45 | Outpatient (BNVA) | payer MEDICARE, MEDICAID, SELFPAY | PROVIDERS: PCP Family Medicine; Referring Provider Family Medicine; Visit Provider Nurse Practitioner Gerontology | DX: N31.8 Other neuromuscular dysfunction of bladder (principal); Q05.9 Spina bifida, unspecified | CPT/HCPCS: 99214 ==

== ENCOUNTER 2020-05-10 04:29 | Outpatient (CLI) | payer MEDICARE, MEDICAID, SELFPAY ==
--- NOTE | 2020-05-10 07:45 | DI.MAMMO_ITS ---
EXAM: MG MAMMO SCREENING CLINICAL HISTORY: screening,Z12.39 TECHNIQUE: Bilateral full field digital CC and MLO mammographic images were obtained with 3D tomosyn thesis and utilizing computer aided detection (CAD). COMPARISON: Available for comparison. FINDINGS: Masses/Architectural Distortion: None seen. Microcalcifications: No suspicious pleomorphic-type are seen. Skin Thickening/Nipple Retraction: None. IMPRESSION: 1. No significant interval change with no specific features of malignancy noted. 2. Unless there is more urgent need, screening mammography is recommended, as per [employer] guidelines. BI-RADS Category 1 - Negative Breast Density - Category B - Scattered areas of fibroglandular density Breast density category C or D implies that the patient has dense breast tissue. Dense breast tissue is very common and is not abnormal but dense breast tissue can make it harder to find cancer on a ma mmogram. Also, dense breast tissue may increase their breast cancer risk. This information about the result of the mammogram report was provided to the patient to raise their awareness. Use this report when you speak with the patient about their risks for breast cancer, which includes their family hist ory. At that time, you may recommend for more screening tests (Ultrasound or MRI) as they might be us eful based on their risk. A negative radiographic report should not delay biopsy if a dominant or clinically suspicious mass is present. Up to ten percent of cancers are not identified on mammography. A negative report may reinforce clinical impression. Adenosis and dense breasts may obscure an underlying neoplasm. False positive reports average 6 to 10%. Patient will receive a letter notifying them of these results.
== END 2020-05-10 04:49 ==
PROVIDERS: PCP Family Medicine; Visit Provider Family Medicine
DX: Z12.31 Encounter for screening mammogram for malignant neoplasm of breast (principal)
CPT/HCPCS: 77063; 77067

== ENCOUNTER 2020-07-31 03:23 | Outpatient (CLI) | payer OTHER, MEDICAID, SELFPAY ==
[2020-07-31 10:45] LABS: Hemoglobin A1C 6.1 % (<5.7)
== END 2020-07-31 03:24 | disposition home or self-care (01) ==
LOC: LBO 03:23
PROVIDERS: PCP Family Medicine; Visit Provider Family Medicine
DX: E11.9 Type 2 diabetes mellitus without complications (principal); N39.0 Urinary tract infection, site not specified
CPT/HCPCS: 36415; 83036; 87086

== ENCOUNTER 2020-08-02 21:31 | Emergency (ER) | payer OTHER, MEDICAID, SELFPAY ==
[2020-08-02 21:35] VITALS: BP 137/81; PULSE 72; RESP 16; TEMP 36.8; O2SAT 98
--- NOTE | 2020-08-02 21:52 | W.ED.GENAD ---
Discharge Plan Disposition Patient Disposition: HOME Condition: Stable Discharge Details Clinical Impression: Cellulitis Primary Care Provider: Melanie Calhoun ED Provider: Hadley Gonzales Home Meds and New Rx's Prescriptions: New cephalexin 500 mg capsule 500 mg PO QID 10 Days Qty: 40 RF: 0 Continued Breo Ellipta 200-25 mcg/dose blister with device 1 inh IH DAILY Qty: 180 RF: 4 epinephrine [EpiPen 2-Raji] 0.3 mg/0.3 mL auto-injector 0.3 mg IM ONCE MDD 1 PRN (Reason: bronchodilation) Qty: 2 RF: 0 loratadine 10 mg tablet 20 mg PO HS Qty: 180 RF: 5 montelukast [Singulair] 10 mg tablet 10 mg PO DAILY Qty: 90 RF: 12 Spiriva with HandiHaler 18 mcg capsule, w/inhalation device 1 cap Inhalation DAILY Qty: 90 RF: 12 fluticasone propionate 50 mcg/actuation spray,suspension 1 spray intranasal Q48H Qty: 9.9 RF: 5 (DME) AeroEclipse II Nebulizer 1 EACH misc 1 ea Miscellaneous TID Qty: 1 RF: 0 ibuprofen 600 mg tablet 600 mg PO Q6H PRN Qty: 30 RF: 6 (DME) Azo Test Strips Strip See Rx Instructions .ROUTE .MEDSUPPLY Qty: 3 RF: 12 levalbuterol tartrate 45 mcg/actuation HFA aerosol inhaler 2 inh IH Q6H PRN (Reason: shortness of breath or wheezing) Qty: 15 RF: 12 (DME) Bard Coude Tip Catheter 12 Fr misc 1 ea Miscellaneous 1-2 Qty: 60 RF: 12 albuterol sulfate 2.5 mg /3 mL (0.083 %) solution for nebulization 2.5 mg Inhalation BID PRN (Reason: bronchospasm) Qty: 90 RF: 6 sennosides [Senokot] 1 TAB tablet 1 ea PO PRN PRNRF: 0 Discharge Instructions Instructions: Cellulitis (ED) Additional Instructions: Cephalexin as directed. Warm and/or cool compresses every 2 hours for 20 minutes. Please watch for new or worsening symptoms and return to the ER for any concerns. I strongly recommend that she be reevaluated by your primary care provider on Wednesday but given it is a long holiday weekend please do not hesitate to return to the ER over the weekend for any new or worsening symptoms. Medical Decision Making 50-year-old female reports going to bed last night asymptomatic and waking with what she thought was a pimple under her chin, the area has become increasingly red, swollen, which she describes as pressure but no real pain. She has been able to eat throughout the day. Reports that her throat feels slightly tight from the overall pressure. Denies wheezing, skin rash elsewhere on her body. She did take 25 mg of Benadryl prior to arrival. Clinically she appears well, nontoxic. Difficult to determine between localized allergic reaction versus cellulitis. Do not appreciate any obvious lymphadenopathy, abscess, and I do have low suspicion for a Ludewig's angina. Given her overall presentation I would like to obtain IV access, give IV fluid, 50 IV Benadryl, and obtain a CBC, CMP and CT imaging of her neck with contrast. Patient is agreeable to this plan. Initial laboratory values are unremarkable for any obvious emergent process. Patient reports no real change in her symptoms after the IV fluid and Benadryl. CT imaging read by radiology as suspected focal area of cellulitis overlying the right submandibular region. No subadjacent abscess or other abnormal focal fluid collections detected. No other soft tissue masses, abnormal fluid collection or sites of adenopathy are detected involvement remaining fascia compartments of the suprahyoid or infrahyoid neck. CT findings and laboratory values discussed with patient. Will treat for localized cellulitis. She was given strict return precautions. Patient has multiple allergies, will initiate Keflex therapy, first dose given now. Airway is patent. Patient is able to manage her own secretions no difficulty, able to tolerate p.o. intake here in the ER. Medical Records Medical records reviewed: Yes I reviewed the patient's medical records. Lab Data Lab results reviewed: Yes I reviewed the patient's lab results. Labs: Laboratory Tests Range/Units 08/02/20 08/02/20 22:10 22:10 WBC (4.4-10.8) 10^3/uL 9.96 RBC (3.93-5.22) 10^6/uL 4.76 Hgb (11.2-15.7) g/dL 14.1 Hct (36.0-46.0) % 42.4 MCV (80-95) fL 89.1 MCH (27.0-33.0) pg 29.6 MCHC (32.0-36.0) % 33.3 RDW (11.7-14.6) % 13.2 Plt Count (130-400) 10^3/uL 362 MPV (8.0-11.0) fL 8.9 Immature Gran % 0.5 Neutrophils % 57.9 Lymphocytes % 32.9 Monocytes % 5.1 Eosinophils % 2.9 Basophils % 0.7 Nucleated RBC % % 0 Absolute Neutrophils (1.2-6.7) 10^3/uL 5.76 Absolute Lymphocytes (1.2-3.4) 10^3/uL 3.28 Absolute Monocytes (0.1-0.8) 10^3/uL 0.51 Absolute Eosinophils (0.0-0.7) 10^3/uL 0.29 Absolute Basophils (0.0-0.2) 10^3/uL 0.07 Sodium (136-145) mmol/L 143 Potassium (3.5-5.1) mmol/L 3.8 Chloride (98-107) mmol/L 106 Carbon Dioxide (21.0-32.0) mmol/L 29.1 Anion Gap (3-11) mmol/L 7.9 BUN (7-18) mg/dL 17 Creatinine (0.55-1.02) mg/dL 1.0 Estimated GFR/1.73 m2 (mL/min/1.73m2) 58.93 Glucose (74-106) mg/dL 121 H Calcium (8.5-10.1) mg/dL 8.9 Total Bilirubin (0.2-1.0) mg/dL 0.2 AST (15-37) U/L 16 ALT (14-59) U/L 27 Alkaline Phosphatase (46-116) U/L 78 Total Protein (6.4-8.2) g/dL 7.5 Albumin (3.4-5.0) g/dL 3.6 HPI General Mode of arrival: ambulatory. Date/Time Provider Initiated Documentation: 08/02/20 21:31. Limitations to Documentation: no limitations. Information obtained by: patient. HPI Narrative: This is a 50-year-old female, past medical history that includes lupus, asthma, spina bifida, angioedema, multiple allergies, presenting to the ER for what she describes as redness and swelling to her anterior neck. She states that she went to bed last night asymptomatic and awoke around 5:00 this morning noticing a small what she describes as a a pimple underneath her chin, slightly on the right side. Family looked at it and thought it might be a bug bite. She states that the area feels slightly swollen and has gotten larger throughout the day. She reports it is uncomfortable and itchy but not necessarily painful. She states that her throat feels slightly dry and although she is able to eat and drink feels like the swelling from the outside is making those tasks slightly more difficult. She denies any obvious environmental exposures. She denies any fever, sore throat, lip swelling, tongue swelling, rash elsewhere on her body. She took 25 mg of Benadryl around 5 PM today without any real change of her symptoms. She does have an EpiPen but did not use this. Related Data Home Medications Medication Instructions Recorded Confirmed sennosides [Senokot] 1 ea PO PRN PRN 08/04/16 08/02/20 AeroEclipse II Nebulizer #1 ea 10/19/16 07/23/20 ibuprofen 600 mg tablet 600 mg PO Q6H PRN #30 tab-cap 06/15/19 08/02/20 leukocyte test #3 each 06/27/19 07/23/20 epinephrine 0.3 mg/0.3 mL 0.3 mg IM ONCE PRN #2 pen MDD 1 05/02/20 08/02/20 injection, auto-injector fluticasone furoate 200 1 inh IH DAILY #180 each 05/02/20 08/02/20 mcg-vilanterol 25 mcg/dose inhalation powder loratadine 10 mg tablet 20 mg PO HS #180 tab 05/02/20 08/02/20 montelukast 10 mg tablet 10 mg PO DAILY #90 tab-cap 05/02/20 08/02/20 tiotropium bromide 18 mcg capsule 1 cap INHALATION DAILY #90 tab-cap 05/02/20 08/02/20 with inhalation device catheter 12 Fr #60 each 05/10/20 07/23/20 levalbuterol tartrate 45 2 inh IH Q6H PRN #15 g 05/10/20 08/02/20 mcg/actuation aerosol inhaler albuterol sulfate 2.5 mg INHALATION BID PRN #90 ml 06/24/20 08/02/20 fluticasone propionate 50 1 spray INTRANASAL Q48H #9.9 ml 06/25/20 08/02/20 mcg/actuation nasal spray,suspension cephalexin 500 mg PO QID 10 Days #40 cap 08/02/20 Previous Rx's Medication Instructions Recorded ibuprofen 600 mg tablet 600 mg PO Q6H PRN #30 tab-cap 06/15/19 leukocyte test #3 each 06/27/19 epinephrine 0.3 mg/0.3 mL 0.3 mg IM ONCE PRN #2 pen MDD 1 05/02/20 injection, auto-injector fluticasone furoate 200 1 inh IH DAILY #180 each 05/02/20 mcg-vilanterol 25 mcg/dose inhalation powder loratadine 10 mg tablet 20 mg PO HS #180 tab 05/02/20 montelukast 10 mg tablet 10 mg PO DAILY #90 tab-cap 05/02/20 tiotropium bromide 18 mcg capsule 1 cap INHALATION DAILY #90 tab-cap 05/02/20 with inhalation device catheter 12 Fr #60 each 05/10/20 levalbuterol tartrate 45 2 inh IH Q6H PRN #15 g 05/10/20 mcg/actuation aerosol inhaler albuterol sulfate 2.5 mg INHALATION BID PRN #90 ml 06/24/20 fluticasone propionate 50 1 spray INTRANASAL Q48H #9.9 ml 06/25/20 mcg/actuation nasal spray,suspension cephalexin 500 mg PO QID 10 Days #40 cap 08/02/20 Allergies Allergy/AdvReac Type Severity Reaction Status Date / Time Beef Containing Products Allergy Severe Verified 08/02/20 21:41 cheese Allergy Severe Verified 08/02/20 21:41 egg Allergy Severe Verified 08/02/20 21:41 fluticasone propionate Allergy Severe Anaphylaxsi Verified 08/02/20 21:41 [From Advair Diskus] s latex Allergy Severe HIVES/SOB Verified 08/02/20 21:41 Pork/Porcine Containing Allergy Severe Verified 08/02/20 21:41 Products Sulfa (Sulfonamide Allergy Severe HIVES/VOMIT Verified 08/02/20 21:41 Antibiotics) ING bacitracin Allergy Intermediate RASH Verified 08/02/20 21:41 [From Triple Antibiotic] budesonide [From Symbicort] Allergy Intermediate Hives Verified 08/02/20 21:41 cat dander Allergy Intermediate Verified 08/02/20 21:41 colistimethate sodium Allergy Intermediate RASH Verified 08/02/20 21:41 [From Triple Antibiotic] dog dander Allergy Intermediate Verified 08/02/20 21:41 famotidine Allergy Intermediate Facial Verified 08/02/20 21:41 swelling formoterol fumarate Allergy Intermediate Hives Verified 08/02/20 21:41 [From Symbicort] gemfibrozil Allergy Intermediate Skin Rash Verified 08/02/20 21:41 gramicidin D Allergy Intermediate RASH Verified 08/02/20 21:41 [From Triple Antibiotic] neomycin sulfate Allergy Intermediate RASH Verified 08/02/20 21:41 [From Triple Antibiotic] polymyxin B Allergy Intermediate RASH Verified 08/02/20 21:41 [From Triple Antibiotic] pramoxine HCl Allergy Intermediate RASH Verified 08/02/20 21:41 [From Triple Antibiotic] ranitidine Allergy Intermediate Verified 08/02/20 21:41 salmeterol xinafoate Allergy Intermediate Hives Verified 08/02/20 21:41 [From Advair Diskus] ciprofloxacin Allergy Unknown Skin Rash Verified 08/02/20 21:41 doxycycline Allergy Unknown Skin Rash Verified 08/02/20 21:41 ezetimibe [Ezetimibe] Allergy Unknown SKIN RASH Verified 08/02/20 21:41 black pepper AdvReac Severe hives Verified 08/02/20 21:41 atorvastatin AdvReac Intermediate Diarrhea Verified 08/02/20 21:41 fenofibrate AdvReac Intermediate YEAST Verified 08/02/20 21:41 INFECTION/COUGH Fish Containing Products AdvReac Intermediate Skin Rash Verified 08/02/20 21:41 morphine AdvReac Intermediate NAUSEA AND Verified 08/02/20 21:41 VOMITING niacin AdvReac Intermediate Chest pain Verified 08/02/20 21:41 omeprazole AdvReac Intermediate Chest Pain Verified 08/02/20 21:41 tramadol AdvReac Intermediate VOMITING Verified 08/02/20 21:41 azithromycin AdvReac Unknown DIARRHEA Verified 08/02/20 21:41 influenza virus vaccine, AdvReac Unknown PNEUMONIA Verified 08/02/20 21:41 specific FOR 7 MONTHS. Hxaamip-Hex-Tdv Reductase AdvReac Unknown Hives, Verified 08/02/20 21:41 Inhibitor vomiting oxybutynin AdvReac swelling, Verified 08/02/20 21:41 headache, backaches. TREES Allergy Intermediate Uncoded 08/02/20 21:41 General Stated Complaint: Cellulitis MANOJ: 3 Review of Systems Constitutional Constitutional: Denies fatigue, Denies fever(s), Denies headache(s) and Denies weakness Eyes Eyes: Denies change in vision ENT Ears, Nose, Mouth, and Throat: Denies headache(s), Denies lip swelling, Reports neck mass, Denies neck pain, Denies sore throat, Denies throat swelling and Denies tongue swelling Cardiovascular Cardiovascular: Denies chest pain and Denies dyspnea Respiratory Respiratory: Denies cough, Denies dyspnea and Denies wheezing Gastrointestinal Gastrointestinal: Denies abdominal pain, Denies nausea and Denies vomiting Musculoskeletal Musculoskeletal: Denies neck pain, Denies numbness and Denies tingling Integumentary/Breasts Skin/Breast: Reports erythema Neurologic Neurologic: Denies headache(s), Denies numbness, Denies tingling and Denies weakness Endocrine Endocrine: Denies fatigue Allergic/Immunologic Allergic/Immunologic: Denies urticaria, Denies lip swelling, Denies throat swelling, Denies tongue swelling and Denies wheezing [facility] Medical History Allergic rhinitis due to pollen (07/08/15) Asthma Asthma Chronic cough Chronic cough (03/25/15) Chronic external ear infection (08/28/13) Depressive disorder Duodenitis 05/03/15- DR. RUIZ (PEPTIC) Elevated lipase 04/23/15 Epigastric pain 04/11/15 Epigastric pain (04/11/15) Episodic mood disorder Fatigue 01/06/12 Fatigue (01/06/12) GERD (gastroesophageal reflux disease) Giant hives 12/03/14 Hematuria (09/17/16) [facility] [place] Hyperlipidemia unable to tolerate statins Hypertension Increased serum lipase level (04/23/15) Lung nodule < 6cm on CT 12/03/15 f/u in 8 mos--f/u neg for nodules 05/22 Nausea with vomiting, unspecified 04/23/15 Neurogenic bladder Neurogenic bladder CATHETERIZES EVERY 2-4 HOURS neurogenic colon Piriformis muscle pain 06/25/15 Piriformis muscle pain (06/25/15) Rash and nonspecific skin eruption (12/11/14) Rectal bleeding 07/30/15 Rectal hemorrhage COLONOSCOPY: INFLAMED SIGMOID, BX NEG; NEG STOOL CULTURE; NEG LACTOFERRIN Rectal hemorrhage (07/30/15) Shoulder pain, left Slow transit constipation Smoker Smoker Smoking Spina bifida, lumbar region TETHERED CORD Cold left lower leg Talipes equinovarus LOWER LEFT LEG SMALL AND COLD; HAS BEEN SURGICALLY CORRECTED Unspecified episodic mood disorder Urinary reflux Urolithiasis Urolithiasis (08/06/16) Vaginal atrophy (10/19/17) Vesico-ureteric reflux Vesicoureteric reflux S/P VALVE REPLACEMENT Surgical History BIOPSYS CLUB FOOT RELEASE LEFT Colonoscopy - MAC H/O surgical procedure s/p valve replacement to repair vesicuoureteral reflux History of bilateral ligation of fallopian tubes (12/13/13) History of bilateral tubal ligation 12/13/13 History of oophorectomy, unilateral 12/13/13 right History of surgical procedure History of unilateral oophorectomy (12/13/13) Hysterectomy, Laproscopic (~1997) prolapsed uterus Ligation of fallopian tube (~1997) Oophrectomy, Right PROCEDURES VESICULOURETERAL REFLUX S/P VALVE EPLACEMENT; 08/06/16 CYSTOSCOPY;B/L RETROGRADE PYELOGRAM;B/L FLEXIBLE URETEROSCOPY S/P laparoscopic hysterectomy 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 Maternal Grandmother Diabetes Hyperlipidemia Stroke Breast cancer Paternal Grandmother Essential hypertension Diabetes Hyperlipidemia Stroke Cancer Brother Spine degeneration Asthma Sister Cervical cancer Son Asthma Social History Smoking/Tobacco Use Status: Former Tobacco Use Tobacco: How many years used: 10 Quit status: has quit before Second Hand Exposure: Yes Smoking risk assessment performed?: Yes Alcohol Intake: never Drug use: Never Substance use type: does not use Caregiver/Support person: No Household members: none Housing: house Communication Needs: None Do you need help understanding health information?: Never Pets and animals: Yes Pets and animals: cat(s), dog(s), bird(s) and farm animals Sexually active: No Do you think of yourself as: straight/heterosexual Current gender identity: female What is your relationship status?: refused to answer How often do you talk on the phone with friends or family?: twice per week How often do you get together with friends or relatives?: decline to answer How often do you attend buddhism or islam services?: decline to answer Do you belong to any clubs or organized social groups?: no Panel score (0-1 are the most socially isolated patients): 0 What type of physical activity do you participate in: walking Duration: 45-60 minutes/day Frequency: daily Mitzi/Jain: None Special mitzi needs: No Seatbelt use: always Helmet use: No Drive intox or ride w/intox locomotive driver: No Do you feel safe at home: Yes Do you feel safe in your relationship?: Yes Exam Const General: cooperative, healthy appearing, comfortable and no acute distress Orientation: alert, awake and oriented x3 HENMT Head: normal to inspection, normocephalic and atraumatic General nose exam: external nose normal Face images: 1. Mild erythema, warmth, swelling, induration without any pointing abscess or fluctuance. Along the lateral aspect there is a small break of the skin. Area is nontender. Mouth: oral mucosae normal and moist mucous membranes Teeth and gingiva: dentition normal Throat: posterior oropharynx normal Eyes General: appearance normal, both eyes and all related structures Conjunctivae: conjunctivae normal Neck Neck: full ROM, no lymphadenopathy, no meningeal signs, trachea midline, supple and nontender Thyroid: thyroid normal Resp Effort & Inspection: normal respiratory effort and able to speak in complete sentences Auscultation: clear to auscultation bilaterally Cardio Rate: regular rate Rhythm: regular rhythm Skin Other: As described above Neuro General: patient alert, patient awake, moves all extremities and no focal motor deficits Cognition: normal cognition Speech: speech normal Gait: normal gait Sensory Exam: no sensory deficits noted Psych Appearance: grossly normal Mental Status: mental status grossly normal Course Vital Signs Vital signs: Vital Signs Temperature 36.8 C 08/02/20 21:35 Pulse 72 08/02/20 21:35 Respiratory Rate 16 08/02/20 21:35 Blood Pressure 137/81 08/02/20 21:35 Pulse Oximetry 98 08/02/20 21:35 Temperature 36.8 C 08/02/20 21:35 Temperature Source Oral 08/02/20 21:35 Pulse 72 08/02/20 21:35 Respiratory Rate 16 08/02/20 21:35 Respiratory Effort Non-Labored 08/02/20 21:42 Blood Pressure 137/81 08/02/20 21:35 Pulse Oximetry 98 08/02/20 21:35 Pain Level 5 08/02/20 21:35
[2020-08-02] MEDS: Normal Saline 1,000 ML 1000 ML IV (22:14)
[2020-08-02] MEDS: diphenhydrAMINE 50 MG/ML VIAL IVP (22:16)
[2020-08-02 22:28] LABS: Abs Immature Grans 0.05 10^3/uL (0.0-0.06); Absolute Basophil Count 0.07 10^3/uL (0.0-0.2); Absolute Eosinophil Count 0.29 10^3/uL (0.0-0.7); Absolute Lymphocyte Count 3.28 10^3/uL (1.2-3.4); Absolute Monocyte Count 0.51 10^3/uL (0.1-0.8); Absolute Neutrophil Count 5.76 10^3/uL (1.2-6.7); Basophils % 0.7; Eosinophils % 2.9; HCT 42.4 % (36.0-46.0); HGB 14.1 g/dL (11.2-15.7); Immature Grans % 0.5; Lymphocytes % 32.9; MCH 29.6 pg (27.0-33.0); MCHC 33.3 % (32.0-36.0); MCV 89.1 fL (80-95); MPV 8.9 fL (8.0-11.0); Monocytes % 5.1; Neutrophils % 57.9; Nucleated RBC 0 %; Platelet Count 362 10^3/uL (130-400); RBC 4.76 10^6/uL (3.93-5.22); RDW 13.2 % (11.7-14.6); WBC 9.96 10^3/uL (4.4-10.8)
[2020-08-02 22:31] LABS: ALT 27 U/L (14-59); AST 16 U/L (15-37); Albumin 3.6 g/dL (3.4-5.0); Alkaline Phosphatase 78 U/L (46-116); Anion Gap 7.9 mmol/L (3-11); BUN 17 mg/dL (7-18); Bilirubin, Total 0.2 mg/dL (0.2-1.0); CO2 29.1 mmol/L (21.0-32.0); Calcium 8.9 mg/dL (8.5-10.1); Chloride 106 mmol/L (98-107); Estimated GFR 58.93 (mL/min/1.73m2); Glucose 121 mg/dL (74-106); Potassium 3.8 mmol/L (3.5-5.1); Sodium 143 mmol/L (136-145); Total Protein 7.5 g/dL (6.4-8.2)
[2020-08-02] MEDS: Omnipaque 350 MG/ML 100 ML BTL IJ (22:34)
[2020-08-02] MEDS: Normal Saline - Diluent 50 ML VIAL IV (22:38)
--- NOTE | 2020-08-02 22:41 | DI.CT_ITS ---
Exam(s) CT NECK W EXAM: CT NECK W CLINICAL HISTORY: anterior swelling, erythema. TECHNIQUE: Imaging Protocol: Axial computed tomography images with coronal and sagittal reformatted images were created and reviewed. CONTRAST MATERIAL: Intravenous: Omnipaque 350 Contrast volume:100 mL COMPARISON: No exams were available for comparison FINDINGS: Orbits and orbital soft tissues: Within normal limits. Visualized paranasal sinuses: Within normal limits. Nasopharynx: Within normal limits. Oropharynx: Within normal limits. Hypopharynx: Within normal limits. Larynx: Within normal limits. Retropharyngeal space: Within normal limits. Parotids/submandibular: Within normal limits. Thyroid gland: Within normal limits. Lymphadenopathy: There is scattered lymph nodes seen along the level one to level three all measurin g less than 8 mm in short axis diameter which are physiologic in nature. Trachea: Within normal limits. Lung apices: Within normal limits. Bones: Within normal limits. Carotids/Jugular: Within normal limits. Soft tissues: There is mild skin thickening and subcutaneous edema in the right submandibular regio n which may represent a cellulitis. No focal fluid collection is seen to suggest an abscess. IMPRESSION: 1. Mild skin thickening and subcutaneous edema in the right submandibular region which may represent cellulitis. No focal fluid collection is seen to suggest an abscess. 2. Otherwise unremarkable examination. RADIATION DOSE DELIVERED: 384.86mGy.cm Total DLP 384.86mGy.cm Total DLP DATA REPOSITORY: All CT scans at this facility are submitted to the National Radiology Data Registry (NRDR) Dose Index Registry (DIR) with the [employer] (A[employer]). RADIATION OPTIMIZATION: All CT scans at this facility use at least one of these dose optimization te chniques: automated exposure control; mA and/or kV adjustment per patient size (includes targeted exa ms where dose is matched to clinical indication); or iterative reconstruction.
[2020-08-02 22:54] VITALS: PULSE 66; RESP 18; O2SAT 100
--- NOTE | 2020-08-02 22:57 | DI.VRAD_ITS ---
PROCEDURE INFORMATION: Exam: CT Neck With Contrast Exam date and time: 08/02/2020 9:52 PM Age: 50 years old Clinical indication: Mass, lump, or swelling in neck; Patient HX: Anterior neck swelling, erythema TECHNIQUE: Imaging protocol: Computed tomography images of the neck with contrast. Radiation optimization: All CT scans at this facility use at least one of these dose optimization techniques: automated exposure control; mA and/or kV adjustment per patient size (includes targeted exams where dose is matched to clinical indication); or iterative reconstruction. Contrast material: [id number]; Contrast volume: 100 ml; Contrast route: INTRAVENOUS (IV); COMPARISON: No relevant prior studies available. FINDINGS: Nasopharynx: Unremarkable. Oropharynx: Unremarkable. No significant tonsillar enlargement. Hypopharynx: Unremarkable. Larynx: Unremarkable. Normal epiglottis. Retropharyngeal space: Unremarkable. Submandibular/Parotid glands: Normal. Glands are normal in size. Thyroid: Normal. No enlarged or calcified nodules. Lymph nodes: Unremarkable. No lymphadenopathy. Trachea: Visualized trachea is unremarkable. Lungs: Unremarkable as visualized. Bones/joints: Unremarkable. No acute fracture. Soft tissues: Asymmetric focal skin thickening with subjacent subcutaneous fatty stranding is seen overlying the right submandibular fossa (see image 22 from series 3 and image 35 from series 5) with no subjacent abscess or other abnormal focal fluid collection detected.. IMPRESSION: 1. Suspected focal area of cellulitis is seen overlying the right submandibular region as detailed below. No subjacent abscess or other abnormal focal fluid collection is detected. 2. No other soft tissue masses, abnormal fluid collections or sites of adenopathy are detected involving the remaining fascial compartments of the suprahyoid or infrahyoid neck. Dictated and Authenticated by: Efrem Ramirez MD. Ordering:REGINA Butcher MD
[2020-08-02] MEDS: Cephalexin 500 MG CAP PO (23:15)
[2020-08-02 23:16] VITALS: BP 112/68; PULSE 68; RESP 16; O2SAT 100
== END 2020-08-02 23:32 | disposition home or self-care (01) ==
PROVIDERS: Emergency Provider Physician Assistant; PCP Family Medicine
DX: K12.2 Cellulitis and abscess of mouth (principal)
CPT/HCPCS: 36415; 70491; 80053; 96361; 96374; 99285; 85025; 99284; J1200; J3490

== ENCOUNTER 2020-08-04 10:35 | Emergency (ER) | payer OTHER, MEDICAID, SELFPAY ==
[2020-08-04 10:38] VITALS: BP 149/76; PULSE 80; RESP 16; TEMP 36.1; O2SAT 98
--- NOTE | 2020-08-04 10:47 | W.ED.GENAD ---
Discharge Plan Disposition Patient Disposition: HOME Condition: Stable Discharge Details Clinical Impression: Cellulitis of chin Primary Care Provider: Melanie Calhoun ED Provider: Arlene Blandon Home Meds and New Rx's Prescriptions: New prednisone 20 mg tablet See Rx Instructions .ROUTE .COMPLEX Qty: 12 RF: 0 clindamycin HCl 150 mg capsule 450 mg PO TID 7 Days Qty: 63 RF: 0 Continued Breo Ellipta 200-25 mcg/dose blister with device 1 inh IH DAILY Qty: 180 RF: 4 epinephrine [EpiPen 2-Raji] 0.3 mg/0.3 mL auto-injector 0.3 mg IM ONCE MDD 1 PRN (Reason: bronchodilation) Qty: 2 RF: 0 loratadine 10 mg tablet 20 mg PO HS Qty: 180 RF: 5 montelukast [Singulair] 10 mg tablet 10 mg PO DAILY Qty: 90 RF: 12 Spiriva with HandiHaler 18 mcg capsule, w/inhalation device 1 cap Inhalation DAILY Qty: 90 RF: 12 fluticasone propionate 50 mcg/actuation spray,suspension 1 spray intranasal Q48H Qty: 9.9 RF: 5 (DME) AeroEclipse II Nebulizer 1 EACH misc 1 ea Miscellaneous TID Qty: 1 RF: 0 ibuprofen 600 mg tablet 600 mg PO Q6H PRN Qty: 30 RF: 6 (DME) Azo Test Strips Strip See Rx Instructions .ROUTE .MEDSUPPLY Qty: 3 RF: 12 levalbuterol tartrate 45 mcg/actuation HFA aerosol inhaler 2 inh IH Q6H PRN (Reason: shortness of breath or wheezing) Qty: 15 RF: 12 (DME) Bard Coude Tip Catheter 12 Fr misc 1 ea Miscellaneous 1-2 Qty: 60 RF: 12 albuterol sulfate 2.5 mg /3 mL (0.083 %) solution for nebulization 2.5 mg Inhalation BID PRN (Reason: bronchospasm) Qty: 90 RF: 6 sennosides [Senokot] 1 TAB tablet 1 ea PO PRN PRNRF: 0 Discontinued cephalexin 500 mg capsule 500 mg PO QID 10 Days Qty: 40 RF: 0 Discharge Instructions Instructions: Cellulitis (ED) Additional Instructions: Apply ice to the affected area several times daily for 20 minutes at a time. Continue to take ibuprofen as needed and directed for pain. Stop taking your Keflex. Your prescriptions have been sent electronically to your pharmacy. Call the pharmacy to make sure your prescriptions are ready before pickup. Take the prescription as directed. Return to the emergency department tomorrow for reevaluation. Return immediately to the emergency department if you develop any worsening or new concerning symptoms such as fever, increased pain, redness, swelling, difficulty breathing or swallowing. Discharge Data Discharge Date/Time-TO BE ENTERED AT DEPARTURE: 08/04/20 12:20 Discharge Physician: Arlene Blandon Medical Decision Making 50-year-old female currently on Keflex for chin cellulitis presents for worsening pain, redness and swelling. She states the tenderness is minimal and mainly complaining of worsening redness, swelling and itching. Questionable cellulitis her CT 2 days ago but no abscess. Patient appears comfortable and nontoxic. She is afebrile. She admitted to clear drainage from the lesion site. There appears to be crusting but no evidence of abscess. There is an approximate 6 x 5 cm area of erythema, induration and minimal tenderness around the lesion site. Floor of the mouth without induration or tenderness. No dental pain or tenderness at this time. She has no drooling, trismus or any extending submandibular swelling from the lesion site. Presentation does not appear consistent with Long angina and I am not concerned about her airway at the time. I do not see an indication for repeat imaging or admission at this time. I obtained a repeat CBC with notes a normal WBC. ESR minimally elevated at 36. CRP is minimally elevated 0.55 Patient has extensive antibiotic allergies. We will stop the Keflex and start clindamycin. Due to the itching and swelling, will also start oral steroids. She has tolerated oral steroids in the past without adverse reaction. Patient advised to return her tomorrow for evaluation. Skin markers placed around the edge of erythema. Patient does feel good to go home. She was advised to return here immediately with any worsening symptoms Medical Records Medical records reviewed: Yes I reviewed the patient's medical records. Imaging Data Radiologic Study: Radiologist's impression: Laboratory Tests Range/Units 08/04/20 08/04/20 08/04/20 11:15 11:15 11:15 WBC (4.4-10.8) 10^3/uL 8.53 RBC (3.93-5.22) 10^6/uL 4.81 Hgb (11.2-15.7) g/dL 14.2 Hct (36.0-46.0) % 43.5 MCV (80-95) fL 90.4 MCH (27.0-33.0) pg 29.5 MCHC (32.0-36.0) % 32.6 RDW (11.7-14.6) % 13.1 Plt Count (130-400) 10^3/uL 378 MPV (8.0-11.0) fL 8.8 Immature Gran % 0.2 Neutrophils % 63.6 Lymphocytes % 27.0 Monocytes % 4.7 Eosinophils % 3.6 Basophils % 0.9 Nucleated RBC % % 0 Absolute Neutrophils (1.2-6.7) 10^3/uL 5.42 Absolute Lymphocytes (1.2-3.4) 10^3/uL 2.30 Absolute Monocytes (0.1-0.8) 10^3/uL 0.40 Absolute Eosinophils (0.0-0.7) 10^3/uL 0.31 Absolute Basophils (0.0-0.2) 10^3/uL 0.08 ESR (0-20) mm/hr 36 H C-Reactive Protein (0.0-0.3) mg/dL 0.55 H HPI General Mode of arrival: ambulatory. Date/Time Provider Initiated Documentation: 08/04/20 10:35. Limitations to Documentation: no limitations. Information obtained by: patient. HPI Narrative: Patient is a 50-year-old female currently on Keflex for a chin cellulitis for the past 2 days. Patient was seen here 2 days ago for a pimple to the right side of her chin/neck for which she had lab work and imaging which noted cellulitis and she was sent home on Keflex. She states it initially started as a small pimple 2 days ago and then progressed to a larger area of redness and swelling. She states since she was seen here 2 days ago, the area of redness and swelling is spreading. She does admit to some increased itching but with only minimal pain. She denies any fever. She states she has been able to eat and drink normally. She states she is taking the Keflex as prescribed. Related Data Home Medications Medication Instructions Recorded Confirmed sennosides [Senokot] 1 ea PO PRN PRN 08/04/16 08/04/20 AeroEclipse II Nebulizer #1 ea 10/19/16 08/04/20 ibuprofen 600 mg tablet 600 mg PO Q6H PRN #30 tab-cap 06/15/19 08/04/20 leukocyte test #3 each 06/27/19 08/04/20 epinephrine 0.3 mg/0.3 mL 0.3 mg IM ONCE PRN #2 pen MDD 1 05/02/20 08/04/20 injection, auto-injector fluticasone furoate 200 1 inh IH DAILY #180 each 05/02/20 08/04/20 mcg-vilanterol 25 mcg/dose inhalation powder loratadine 10 mg tablet 20 mg PO HS #180 tab 05/02/20 08/04/20 montelukast 10 mg tablet 10 mg PO DAILY #90 tab-cap 05/02/20 08/04/20 tiotropium bromide 18 mcg capsule 1 cap INHALATION DAILY #90 tab-cap 05/02/20 08/04/20 with inhalation device catheter 12 Fr #60 each 05/10/20 08/04/20 levalbuterol tartrate 45 2 inh IH Q6H PRN #15 g 05/10/20 08/04/20 mcg/actuation aerosol inhaler albuterol sulfate 2.5 mg INHALATION BID PRN #90 ml 06/24/20 08/04/20 fluticasone propionate 50 1 spray INTRANASAL Q48H #9.9 ml 06/25/20 08/04/20 mcg/actuation nasal spray,suspension clindamycin HCl 450 mg PO TID 7 Days #63 cap 08/04/20 prednisone See Rx Instructions .ROUTE 08/04/20 .COMPLEX #12 tab Previous Rx's Medication Instructions Recorded ibuprofen 600 mg tablet 600 mg PO Q6H PRN #30 tab-cap 06/15/19 leukocyte test #3 each 06/27/19 epinephrine 0.3 mg/0.3 mL 0.3 mg IM ONCE PRN #2 pen MDD 1 05/02/20 injection, auto-injector fluticasone furoate 200 1 inh IH DAILY #180 each 05/02/20 mcg-vilanterol 25 mcg/dose inhalation powder loratadine 10 mg tablet 20 mg PO HS #180 tab 05/02/20 montelukast 10 mg tablet 10 mg PO DAILY #90 tab-cap 05/02/20 tiotropium bromide 18 mcg capsule 1 cap INHALATION DAILY #90 tab-cap 05/02/20 with inhalation device catheter 12 Fr #60 each 05/10/20 levalbuterol tartrate 45 2 inh IH Q6H PRN #15 g 05/10/20 mcg/actuation aerosol inhaler albuterol sulfate 2.5 mg INHALATION BID PRN #90 ml 06/24/20 fluticasone propionate 50 1 spray INTRANASAL Q48H #9.9 ml 06/25/20 mcg/actuation nasal spray,suspension clindamycin HCl 450 mg PO TID 7 Days #63 cap 08/04/20 prednisone See Rx Instructions .ROUTE 08/04/20 .COMPLEX #12 tab Allergies Allergy/AdvReac Type Severity Reaction Status Date / Time Beef Containing Products Allergy Severe Verified 08/04/20 10:44 cheese Allergy Severe Verified 08/04/20 10:44 egg Allergy Severe Verified 08/04/20 10:44 fluticasone propionate Allergy Severe Anaphylaxsi Verified 08/04/20 10:44 [From Advair Diskus] s latex Allergy Severe HIVES/SOB Verified 08/04/20 10:44 Pork/Porcine Containing Allergy Severe Verified 08/04/20 10:44 Products Sulfa (Sulfonamide Allergy Severe HIVES/VOMIT Verified 08/04/20 10:44 Antibiotics) ING bacitracin Allergy Intermediate RASH Verified 08/04/20 10:44 [From Triple Antibiotic] budesonide [From Symbicort] Allergy Intermediate Hives Verified 08/04/20 10:44 cat dander Allergy Intermediate Verified 08/04/20 10:44 colistimethate sodium Allergy Intermediate RASH Verified 08/04/20 10:44 [From Triple Antibiotic] dog dander Allergy Intermediate Verified 08/04/20 10:44 famotidine Allergy Intermediate Facial Verified 08/04/20 10:44 swelling formoterol fumarate Allergy Intermediate Hives Verified 08/04/20 10:44 [From Symbicort] gemfibrozil Allergy Intermediate Skin Rash Verified 08/04/20 10:44 gramicidin D Allergy Intermediate RASH Verified 08/04/20 10:44 [From Triple Antibiotic] neomycin sulfate Allergy Intermediate RASH Verified 08/04/20 10:44 [From Triple Antibiotic] polymyxin B Allergy Intermediate RASH Verified 08/04/20 10:44 [From Triple Antibiotic] pramoxine HCl Allergy Intermediate RASH Verified 08/04/20 10:44 [From Triple Antibiotic] ranitidine Allergy Intermediate Verified 08/04/20 10:44 salmeterol xinafoate Allergy Intermediate Hives Verified 08/04/20 10:44 [From Advair Diskus] ciprofloxacin Allergy Unknown Skin Rash Verified 08/04/20 10:44 doxycycline Allergy Unknown Skin Rash Verified 08/04/20 10:44 ezetimibe [Ezetimibe] Allergy Unknown SKIN RASH Verified 08/04/20 10:44 black pepper AdvReac Severe hives Verified 08/04/20 10:44 atorvastatin AdvReac Intermediate Diarrhea Verified 08/04/20 10:44 fenofibrate AdvReac Intermediate YEAST Verified 08/04/20 10:44 INFECTION/COUGH Fish Containing Products AdvReac Intermediate Skin Rash Verified 08/04/20 10:44 morphine AdvReac Intermediate NAUSEA AND Verified 08/04/20 10:44 VOMITING niacin AdvReac Intermediate Chest pain Verified 08/04/20 10:44 omeprazole AdvReac Intermediate Chest Pain Verified 08/04/20 10:44 tramadol AdvReac Intermediate VOMITING Verified 08/04/20 10:44 azithromycin AdvReac Unknown DIARRHEA Verified 08/04/20 10:44 influenza virus vaccine, AdvReac Unknown PNEUMONIA Verified 08/04/20 10:44 specific FOR 7 MONTHS. [id number] Reductase AdvReac Unknown Hives, Verified 08/04/20 10:44 Inhibitor vomiting oxybutynin AdvReac swelling, Verified 08/04/20 10:44 headache, backaches. TREES Allergy Intermediate Uncoded 08/04/20 10:44 General Stated Complaint: Cellulitis MANOJ: 3 Review of Systems All systems reviewed & are unremarkable except as noted in HPI and below Constitutional Constitutional: Reports as per HPI, Denies chills and Denies fever(s) Eyes Eyes: Denies blurry vision ENT Ears, Nose, Mouth, and Throat: Denies dizziness, Denies sore throat and Denies throat swelling Cardiovascular Cardiovascular: Denies chest pain and Denies dyspnea Respiratory Respiratory: Denies cough and Denies dyspnea Gastrointestinal Gastrointestinal: Denies abdominal pain, Denies diarrhea and Denies vomiting Genitourinary Genitourinary: Denies hematuria and Denies dysuria Musculoskeletal Musculoskeletal: Denies back pain and Denies numbness Integumentary/Breasts Skin/Breast: Denies lesions and Denies rash Neurologic Neurologic: Denies dizziness, Denies localized weakness and Denies numbness Allergic/Immunologic Allergic/Immunologic: Denies throat swelling [facility] Medical History Allergic rhinitis due to pollen (07/08/15) Asthma Asthma Chronic cough Chronic cough (03/25/15) Chronic external ear infection (08/28/13) Depressive disorder Duodenitis 05/03/15- DR. RUIZ (PEPTIC) Elevated lipase 04/23/15 Epigastric pain 04/11/15 Epigastric pain (04/11/15) Episodic mood disorder Fatigue 01/06/12 Fatigue (01/06/12) GERD (gastroesophageal reflux disease) Giant hives 12/03/14 Hematuria (09/17/16) [facility] [place] [facility] [place]lipidemia unable to tolerate statins Hypertension Increased serum lipase level (04/23/15) Lung nodule < 6cm on CT 12/03/15 f/u in 8 mos--f/u neg for nodules 05/22 Nausea with vomiting, unspecified 04/23/15 Neurogenic bladder Neurogenic bladder CATHETERIZES EVERY 2-4 HOURS neurogenic colon Piriformis muscle pain 06/25/15 Piriformis muscle pain (06/25/15) Rash and nonspecific skin eruption (12/11/14) Rectal bleeding 07/30/15 Rectal hemorrhage COLONOSCOPY: INFLAMED SIGMOID, BX NEG; NEG STOOL CULTURE; NEG LACTOFERRIN Rectal hemorrhage (07/30/15) Shoulder pain, left Slow transit constipation Smoker Smoker Smoking Spina bifida, lumbar region TETHERED CORD Cold left lower leg Talipes equinovarus LOWER LEFT LEG SMALL AND COLD; HAS BEEN SURGICALLY CORRECTED Unspecified episodic mood disorder Urinary reflux Urolithiasis Urolithiasis (08/06/16) Vaginal atrophy (10/19/17) Vesico-ureteric reflux Vesicoureteric reflux S/P VALVE REPLACEMENT Surgical History BIOPSYS CLUB FOOT RELEASE LEFT Colonoscopy - MAC H/O surgical procedure s/p valve replacement to repair vesicuoureteral reflux History of bilateral ligation of fallopian tubes (12/13/13) History of bilateral tubal ligation 12/13/13 History of oophorectomy, unilateral 12/13/13 right History of surgical procedure History of unilateral oophorectomy (12/13/13) Hysterectomy, Laproscopic (~1997) prolapsed uterus Ligation of fallopian tube (~1997) Oophrectomy, Right PROCEDURES VESICULOURETERAL REFLUX S/P VALVE EPLACEMENT; 08/06/16 CYSTOSCOPY;B/L RETROGRADE PYELOGRAM;B/L FLEXIBLE URETEROSCOPY S/P laparoscopic hysterectomy 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 Maternal Grandmother Diabetes Hyperlipidemia Stroke Breast cancer Paternal Grandmother Essential hypertension Diabetes Hyperlipidemia Stroke Cancer Brother Spine degeneration Asthma Sister Cervical cancer Son Asthma Social History Smoking/Tobacco Use Status: Former Tobacco Use Tobacco: How many years used: 10 Quit status: has quit before Second Hand Exposure: Yes Smoking risk assessment performed?: Yes Alcohol Intake: never Drug use: Never Substance use type: does not use Caregiver/Support person: No Household members: none Housing: house Communication Needs: None Do you need help understanding health information?: Never Pets and animals: Yes Pets and animals: cat(s), dog(s), bird(s) and farm animals Sexually active: No Do you think of yourself as: straight/heterosexual Current gender identity: female What is your relationship status?: refused to answer How often do you talk on the phone with friends or family?: twice per week How often do you get together with friends or relatives?: decline to answer How often do you attend pentecostalism or hinduism services?: decline to answer Do you belong to any clubs or organized social groups?: no Panel score (0-1 are the most socially isolated patients): 0 What type of physical activity do you participate in: walking Duration: 45-60 minutes/day Frequency: daily Mitzi/Rastafarian: None Special mitzi needs: No Seatbelt use: always Helmet use: No Drive 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 Do you feel safe at home: Yes Do you feel safe in your relationship?: Yes Exam Const General: cooperative, healthy appearing and no acute distress [facility] Head: normal to inspection Ears: hearing grossly normal bilaterally, external ears normal and TM's normal bilaterally General nose exam: external nose normal Mouth: oral mucosae normal, tongue normal, oropharynx normal, moist mucous membranes, no drooling and no trismus Throat: posterior oropharynx normal, uvula midline and no peritonsillar masses Eyes General: appearance normal, both eyes and all related structures Neck Neck: normal visual inspection, full ROM, no meningeal signs, trachea midline and supple Neck images: 1. 3 x 3 mm erosion. 2. 6 x 5 cm area of erythema, induration with minimal tenderness. No fluctuance or abscess noted. Resp Effort & Inspection: normal respiratory effort and able to speak in complete sentences Auscultation: clear to auscultation bilaterally Cardio Rate: regular rate Rhythm: regular rhythm Skin General skin exam: no rashes or lesions noted Neuro General: patient alert, patient awake and patient oriented x3 Motor: muscle tone normal throughout Extrem General: normal to inspection and full ROM Psych Appearance: grossly normal Affect: normal affect Course Vital Signs Vital signs: Vital Signs Temperature 97.0 F L 08/04/20 10:38 Pulse 80 08/04/20 10:38 Respiratory Rate 16 08/04/20 10:38 Blood Pressure 149/76 H 08/04/20 10:38 Pulse Oximetry 98 08/04/20 10:38 Temperature 97.0 F L 08/04/20 10:38 Temperature Source Temporal Artery Scan 08/04/20 10:38 Pulse 80 08/04/20 10:38 Respiratory Rate 16 08/04/20 10:38 Respiratory Effort Non-Labored 08/04/20 10:42 Blood Pressure 149/76 H 08/04/20 10:38 Blood Pressure Position Sitting 08/04/20 10:38 Pulse Oximetry 98 08/04/20 10:38 Oxygen Delivery Method Room Air 08/04/20 10:38 Oxygen Flow Rate 0 08/04/20 10:38 Pain Level 5 08/04/20 10:38
[2020-08-04 11:20] LABS: Abs Immature Grans 0.02 10^3/uL (0.0-0.06); Absolute Basophil Count 0.08 10^3/uL (0.0-0.2); Absolute Eosinophil Count 0.31 10^3/uL (0.0-0.7); Absolute Neutrophil Count 5.42 10^3/uL (1.2-6.7); Basophils % 0.9; ESR 36 mm/hr (0-20); Eosinophils % 3.6; HCT 43.5 % (36.0-46.0); HGB 14.2 g/dL (11.2-15.7); Immature Grans % 0.2; MCH 29.5 pg (27.0-33.0); MCHC 32.6 % (32.0-36.0); MCV 90.4 fL (80-95); MPV 8.8 fL (8.0-11.0); Monocytes % 4.7; Neutrophils % 63.6; Nucleated RBC 0 %; Platelet Count 378 10^3/uL (130-400); RBC 4.81 10^6/uL (3.93-5.22); RDW 13.1 % (11.7-14.6); RDW-SD 43.2 fL; WBC 8.53 10^3/uL (4.4-10.8)
[2020-08-04] MEDS: predniSONE 20 MG TAB 60 MG PO (11:26)
[2020-08-04] MEDS: Clindamycin 150 MG CAP 450 MG PO (11:26)
[2020-08-04 11:30] LABS: C-Reactive Protein 0.55 mg/dL (0.0-0.3)
== END 2020-08-04 12:20 | disposition home or self-care (01) ==
PROVIDERS: Emergency Provider Physician Assistant; PCP Family Medicine
DX: L03.211 Cellulitis of face (principal)
CPT/HCPCS: 36415; 85652; 99283; 85025; 86140; J7512

== ENCOUNTER 2020-08-05 08:34 | Emergency (ER) | payer OTHER, MEDICAID, SELFPAY ==
[2020-08-05 08:36] VITALS: BP 135/72; PULSE 80; TEMP 36.3; O2SAT 96
--- NOTE | 2020-08-05 08:43 | ED.GENADUL_ITS ---
Discharge Plan Disposition Patient Disposition: HOME Condition: Improving Discharge Details Clinical Impression: Visit for wound check, Cellulitis of chin Primary Care Provider: Melanie Calhoun ED Provider: Arlene Blandon Home Meds and New Rx's Prescriptions: Continued Breo Ellipta 200-25 mcg/dose blister with device 1 inh IH DAILY Qty: 180 RF: 4 epinephrine [EpiPen 2-Raji] 0.3 mg/0.3 mL auto-injector 0.3 mg IM ONCE MDD 1 PRN (Reason: bronchodilation) Qty: 2 RF: 0 loratadine 10 mg tablet 20 mg PO HS Qty: 180 RF: 5 montelukast [Singulair] 10 mg tablet 10 mg PO DAILY Qty: 90 RF: 12 Spiriva with HandiHaler 18 mcg capsule, w/inhalation device 1 cap Inhalation DAILY Qty: 90 RF: 12 fluticasone propionate 50 mcg/actuation spray,suspension 1 spray intranasal Q48H Qty: 9.9 RF: 5 (DME) AeroEclipse II Nebulizer 1 EACH misc 1 ea Miscellaneous TID Qty: 1 RF: 0 ibuprofen 600 mg tablet 600 mg PO Q6H PRN Qty: 30 RF: 6 (DME) Azo Test Strips Strip See Rx Instructions .ROUTE .MEDSUPPLY Qty: 3 RF: 12 levalbuterol tartrate 45 mcg/actuation HFA aerosol inhaler 2 inh IH Q6H PRN (Reason: shortness of breath or wheezing) Qty: 15 RF: 12 (DME) Bard Coude Tip Catheter 12 Fr misc 1 ea Miscellaneous 1-2 Qty: 60 RF: 12 albuterol sulfate 2.5 mg /3 mL (0.083 %) solution for nebulization 2.5 mg Inhalation BID PRN (Reason: bronchospasm) Qty: 90 RF: 6 sennosides [Senokot] 1 TAB tablet 1 ea PO PRN PRNRF: 0 prednisone 20 mg tablet See Rx Instructions .ROUTE .COMPLEX Qty: 12 RF: 0 clindamycin HCl 150 mg capsule 450 mg PO TID 7 Days Qty: 63 RF: 0 Discharge Instructions Instructions: Cellulitis (ED), Acute Wound Care (ED) Additional Instructions: Continue the antibiotics and steroids as directed until finished. You can take 1-2 tabs of Benadryl every 6 hours as needed for itching. Call your primary care doctor's office tomorrow to schedule a follow-up appointment for reevaluation within the next week. Return immediately to the emergency department if you develop any worsening or new concerning symptoms such as fever, increased pain, redness, swelling, difficulty swallowing or breathing. Discharge Data Discharge Date/Time-TO BE ENTERED AT DEPARTURE: 08/05/20 09:30 Discharge Physician: Arlene Blandon Medical Decision Making 50-year-old female currently on clindamycin and oral steroids for chin cellulitis presents for wound recheck. Patient admits to itching overnight but states overall the pain is improved. The area of erythema is significantly improved compared to yesterday. As she has mainly itching and erythema improved, overall infection seems to be improving. She is afebrile and appears nontoxic. Airway intact. We'll plan to continue clindamycin and steroids as directed. Patient now states that she remembers she had a tick bite to her right chin area last week just prior to onset of her initial rash. She states she did not remember this until now. She states the tick was not in place for more than a few hours, was not engorged and she denies any fever, chills or known bull's-eye rash. Will obtain a tick and Lyme panel. As patient is allergic to doxycy myers and has multiple antibiotic allergies and she would prefer not to add another antibiotic to her regimen, will await results of tick and Lyme panel. Advised to follow up with the primary care doctor for re-evaluation and results of her tick and lyme panel. Usual and customary return precautions given prior to discharge. Medical Records Medical records reviewed: Yes I reviewed the patient's medical records. HPI General Mode of arrival: ambulatory . Date/Time Provider Initiated Documentation: 08/05/20 08:43 . Limitations to Documentation: no limitations . Information obtained by: patient . HPI Narrative: Patient is a 50-year-old female who presents for wound recheck after seen here yesterday for worsening of her chin cellulitis. Patient was seen here 4 days ago and started on Keflex for a lesion with surrounding cellulitis. She returned here yesterday for worsening cellulitis and antibiotic was switched from Keflex to clindamycin and oral steroids were added for itching. She states last night she awoke with itching of her chin but states the redness, swelling and pain has improved. She denies any difficulty swallowing or fever. Related Data Home Medications Medication Instructions Recorded Confirmed sennosides [Senokot] 1 ea PO PRN PRN 08/04/16 08/05/20 AeroEclipse II Nebulizer #1 ea 10/19/16 08/05/20 ibuprofen 600 mg tablet 600 mg PO Q6H PRN #30 tab-cap 06/15/19 08/05/20 leukocyte test #3 each 06/27/19 08/05/20 epinephrine 0.3 mg/0.3 mL 0.3 mg IM ONCE PRN #2 pen MDD 1 05/02/20 08/05/20 injection, auto-injector fluticasone furoate 200 1 inh IH DAILY #180 each 05/02/20 08/05/20 mcg-vilanterol 25 mcg/dose inhalation powder loratadine 10 mg tablet 20 mg PO HS #180 tab 05/02/20 08/05/20 montelukast 10 mg tablet 10 mg PO DAILY #90 tab-cap 05/02/20 08/05/20 tiotropium bromide 18 mcg capsule 1 cap INHALATION DAILY #90 tab-cap 05/02/20 08/05/20 with inhalation device catheter 12 Fr #60 each 05/10/20 08/05/20 levalbuterol tartrate 45 2 inh IH Q6H PRN #15 g 05/10/20 08/05/20 mcg/actuation aerosol inhaler albuterol sulfate 2.5 mg INHALATION BID PRN #90 ml 06/24/20 08/05/20 fluticasone propionate 50 1 spray INTRANASAL Q48H #9.9 ml 06/25/20 08/05/20 mcg/actuation nasal spray,suspension clindamycin HCl 450 mg PO TID 7 Days #63 cap 08/04/20 08/05/20 prednisone See Rx Instructions .ROUTE 08/04/20 08/05/20 .COMPLEX #12 tab Previous Rx's Medication Instructions Recorded ibuprofen 600 mg tablet 600 mg PO Q6H PRN #30 tab-cap 06/15/19 leukocyte test #3 each 06/27/19 epinephrine 0.3 mg/0.3 mL 0.3 mg IM ONCE PRN #2 pen MDD 1 05/02/20 injection, auto-injector fluticasone furoate 200 1 inh IH DAILY #180 each 05/02/20 mcg-vilanterol 25 mcg/dose inhalation powder loratadine 10 mg tablet 20 mg PO HS #180 tab 05/02/20 montelukast 10 mg tablet 10 mg PO DAILY #90 tab-cap 05/02/20 tiotropium bromide 18 mcg capsule 1 cap INHALATION DAILY #90 tab-cap 05/02/20 with inhalation device catheter 12 Fr #60 each 05/10/20 levalbuterol tartrate 45 2 inh IH Q6H PRN #15 g 05/10/20 mcg/actuation aerosol inhaler albuterol sulfate 2.5 mg INHALATION BID PRN #90 ml 06/24/20 fluticasone propionate 50 1 spray INTRANASAL Q48H #9.9 ml 06/25/20 mcg/actuation nasal spray,suspension clindamycin HCl 450 mg PO TID 7 Days #63 cap 08/04/20 prednisone See Rx Instructions .ROUTE 08/04/20 .COMPLEX #12 tab Allergies Allergy/AdvReac Type Severity Reaction Status Date / Time Beef Containing Products Allergy Severe Verified 08/05/20 08:42 cheese Allergy Severe Verified 08/05/20 08:42 egg Allergy Severe Verified 08/05/20 08:42 fluticasone propionate Allergy Severe Anaphylaxsi Verified 08/05/20 08:42 [From Advair Diskus] s latex Allergy Severe HIVES/SOB Verified 08/05/20 08:42 Pork/Porcine Containing Allergy Severe Verified 08/05/20 08:42 Products Sulfa (Sulfonamide Allergy Severe HIVES/VOMIT Verified 08/05/20 08:42 Antibiotics) ING bacitracin Allergy Intermediate RASH Verified 08/05/20 08:42 [From Triple Antibiotic] budesonide [From Symbicort] Allergy Intermediate Hives Verified 08/05/20 08:42 cat dander Allergy Intermediate Verified 08/05/20 08:42 colistimethate sodium Allergy Intermediate RASH Verified 08/05/20 08:42 [From Triple Antibiotic] dog dander Allergy Intermediate Verified 08/05/20 08:42 famotidine Allergy Intermediate Facial Verified 08/05/20 08:42 swelling formoterol fumarate Allergy Intermediate Hives Verified 08/05/20 08:42 [From Symbicort] gemfibrozil Allergy Intermediate Skin Rash Verified 08/05/20 08:42 gramicidin D Allergy Intermediate RASH Verified 08/05/20 08:42 [From Triple Antibiotic] neomycin sulfate Allergy Intermediate RASH Verified 08/05/20 08:42 [From Triple Antibiotic] polymyxin B Allergy Intermediate RASH Verified 08/05/20 08:42 [From Triple Antibiotic] pramoxine HCl Allergy Intermediate RASH Verified 08/05/20 08:42 [From Triple Antibiotic] ranitidine Allergy Intermediate Verified 08/05/20 08:42 salmeterol xinafoate Allergy Intermediate Hives Verified 08/05/20 08:42 [From Advair Diskus] ciprofloxacin Allergy Unknown Skin Rash Verified 08/05/20 08:42 doxycycline Allergy Unknown Skin Rash Verified 08/05/20 08:42 ezetimibe [Ezetimibe] Allergy Unknown SKIN RASH Verified 08/05/20 08:42 black pepper AdvReac Severe hives Verified 08/05/20 08:42 atorvastatin AdvReac Intermediate Diarrhea Verified 08/05/20 08:42 fenofibrate AdvReac Intermediate YEAST Verified 08/05/20 08:42 INFECTION/COUGH Fish Containing Products AdvReac Intermediate Skin Rash Verified 08/05/20 08:42 morphine AdvReac Intermediate NAUSEA AND Verified 08/05/20 08:42 VOMITING niacin AdvReac Intermediate Chest pain Verified 08/05/20 08:42 omeprazole AdvReac Intermediate Chest Pain Verified 08/05/20 08:42 tramadol AdvReac Intermediate VOMITING Verified 08/05/20 08:42 azithromycin AdvReac Unknown DIARRHEA Verified 08/05/20 08:42 influenza virus vaccine, AdvReac Unknown PNEUMONIA Verified 08/05/20 08:42 specific FOR 7 MONTHS. Aazllaa-Mxh-Hkr Reductase AdvReac Unknown Hives, Verified 08/05/20 08:42 Inhibitor vomiting oxybutynin AdvReac swelling, Verified 08/05/20 08:42 headache, backaches. TREES Allergy Intermediate Uncoded 08/05/20 08:42 General Stated Complaint: Recheck MANOJ: 4 Review of Systems All systems reviewed & are unremarkable except as noted in HPI and below Constitutional Constitutional: Reports as per HPI, Denies chills and Denies fever(s) Eyes Eyes: Denies blurry vision ENT Ears, Nose, Mouth, and Throat: Denies dizziness, Denies sore throat and Denies throat swelling Cardiovascular Cardiovascular: Denies chest pain and Denies dyspnea Respiratory Respiratory: Denies cough and Denies dyspnea Gastrointestinal Gastrointestinal: Denies abdominal pain, Denies diarrhea and Denies vomiting Genitourinary Genitourinary: Denies hematuria and Denies dysuria Musculoskeletal Musculoskeletal: Denies back pain and Denies numbness Integumentary/Breasts Skin/Breast: Denies lesions and Denies rash Neurologic Neurologic: Denies dizziness, Denies localized weakness and Denies numbness Allergic/Immunologic Allergic/Immunologic: Denies throat swelling [facility] Medical History Allergic rhinitis due to pollen (07/08/15) Asthma Asthma Chronic cough Chronic cough (03/25/15) Chronic external ear infection (08/28/13) Depressive disorder Duodenitis 05/03/15- DR. RUIZ ([facility]PT[facility]) Elevated lipase 04/23/15 Epigastric pain 04/11/15 Epigastric pain (04/11/15) Episodic mood disorder Fatigue 01/06/12 Fatigue (01/06/12) GERD (gastroesophageal reflux disease) Giant hives 12/03/14 Hematuria (09/17/16) [facility] [place] [place] Hyperlipidemia unable to tolerate statins Hypertension Increased serum lipase level (04/23/15) Lung nodule < 6cm on CT 12/03/15 f/u in 8 mos--f/u neg for nodules 05/22 Nausea with vomiting, unspecified 04/23/15 Neurogenic bladder Neurogenic bladder CATHETERIZES EVERY 2-4 HOURS neurogenic colon Piriformis muscle pain 06/25/15 Piriformis muscle pain (06/25/15) Rash and nonspecific skin eruption (12/11/14) Rectal bleeding 07/30/15 Rectal hemorrhage COLONOSCOPY: INFLAMED SIGMOID, BX NEG; NEG STOOL CULTURE; NEG LACTOFERRIN Rectal hemorrhage (07/30/15) Shoulder pain, left Slow transit constipation Smoker Smoker Smoking Spina bifida, lumbar region TETHERED CORD Cold left lower leg Talipes equinovarus LOWER LEFT LEG SMALL AND COLD; HAS BEEN SURGICALLY CORRECTED Unspecified episodic mood disorder Urinary reflux Urolithiasis Urolithiasis (08/06/16) Vaginal atrophy (10/19/17) Vesico-ureteric reflux Vesicoureteric reflux S/P VALVE REPLACEMENT Surgical History BIOPSYS CLUB FOOT RELEASE LEFT Colonoscopy - MAC H/O surgical procedure s/p valve replacement to repair vesicuoureteral reflux History of bilateral ligation of fallopian tubes (12/13/13) History of bilateral tubal ligation 12/13/13 History of oophorectomy, unilateral 12/13/13 right History of surgical procedure History of unilateral oophorectomy (12/13/13) Hysterectomy, Laproscopic (~1997) prolapsed uterus Ligation of fallopian tube (~1997) Oophrectomy, Right PROCEDURES VESICULOURETERAL REFLUX S/P VALVE EPLACEMENT; 08/06/16 CYSTOSCOPY;B/L RETROGRADE PYELOGRAM;B/L FLEXIBLE URETEROSCOPY S/P laparoscopic hysterectomy 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 Maternal Grandmother Diabetes Hyperlipidemia Stroke Breast cancer Paternal Grandmother Essential hypertension Diabetes Hyperlipidemia Stroke Cancer Brother Spine degeneration Asthma Sister Cervical cancer Son Asthma Social History Smoking/Tobacco Use Status: Former Tobacco Use Tobacco: How many years used: 10 Quit status: has quit before Second Hand Exposure: Yes Smoking risk assessment performed?: Yes Alcohol Intake: never Drug use: Never Substance use type: does not use Caregiver/Support person: No Household members: none Housing: house Communication Needs: None Do you need help understanding health information?: Never Pets and animals: Yes Pets and animals: cat(s), dog(s), bird(s) and farm animals Sexually active: No Do you think of yourself as: straight/heterosexual Current gender identity: female What is your relationship status?: refused to answer How often do you talk on the phone with friends or family?: twice per week How often do you get together with friends or relatives?: decline to answer How often do you attend restoration or catholic services?: decline to answer Do you belong to any clubs or organized social groups?: no Panel score (0-1 are the most socially isolated patients): 0 What type of physical activity do you participate in: walking Duration: 45-60 minutes/day Frequency: daily Mitzi/Samaritan: None Special mitzi needs: No Seatbelt use: always Helmet use: No Drive intox or ride w/intox pile driver operator: No Do you feel safe at home: Yes Do you feel safe in your relationship?: Yes Exam Const General: cooperative, healthy appearing and no acute distress HENMT Head: normal to inspection Ears: hearing grossly normal bilaterally and external ears normal Face images: 1. Areas of erythema significantly regressed within skin marker lines. Induration and tenderness improved. There is no fluctuance, crepitus or abscess noted. Mouth: oral mucosae normal and other (Floor of mouth nontender without edema/induration) Throat: posterior oropharynx normal Eyes General: appearance normal, both eyes and all related structures Neck Neck: normal visual inspection, no meningeal signs, trachea midline, supple, no anterior neck swelling and no tracheal deviation Resp Effort & Inspection: normal respiratory effort and able to speak in complete sentences Cardio Rate: regular rate Skin General skin exam: no rashes or lesions noted Neuro General: patient alert, patient awake and patient oriented x3 Motor: muscle tone normal throughout Extrem General: normal to inspection and full ROM Psych Appearance: grossly normal Affect: normal affect Course Vital Signs Vital signs: Vital Signs Temperature 97.3 F L 08/05/20 08:36 Pulse 80 08/05/20 08:36 Blood Pressure 135/72 08/05/20 08:36 Pulse Oximetry 96 08/05/20 08:36 Temperature 97.3 F L 08/05/20 08:36 Temperature Source Temporal Artery Scan 08/05/20 08:36 Pulse 80 08/05/20 08:36 Respiratory Effort Non-Labored 08/05/20 08:39 Blood Pressure 135/72 08/05/20 08:36 Blood Pressure Position Sitting 08/05/20 08:36 Pulse Oximetry 96 08/05/20 08:36 Oxygen Delivery Method Room Air 08/05/20 08:36 Oxygen Flow Rate 0 08/05/20 08:36 Pain Level 3 08/05/20 08:36
[2020-08-07 11:09] LABS: Lyme Ab w Rflx to Lyme Confirm Negative (Negative)
[2020-08-12 10:10] LABS: Anaplasma phagocytophilum Negative (Negative); B. miyamotoi PCR Negative (Negative); Babesia divergens/MO-1 Negative (Negative); Babesia duncani Negative (Negative); Babesia microti Negative (Negative); Ehrlichia chaffeensis Negative (Negative); Ehrlichia ewingii/canis Negative (Negative); Ehrlichia muris eauclairensis Negative (Negative)
== END 2020-08-05 09:30 | disposition home or self-care (01) ==
PROVIDERS: Emergency Provider Physician Assistant; PCP Family Medicine
DX: K12.2 Cellulitis and abscess of mouth (principal); S00.86XA Insect bite (nonvenomous) of other part of head, initial encounter; W57.XXXA Bitten or stung by nonvenomous insect and other nonvenomous arthropods, initial encounter; Z48.01 Encounter for change or removal of surgical wound dressing
CPT/HCPCS: 36415; 87798; 99283; 86618; 99282

== ENCOUNTER 2020-08-19 17:09 | Outpatient (REF) | payer OTHER, MEDICAID, SELFPAY | END 2020-08-19 17:10 | disposition home or self-care (01) | LOC: LBN 17:09 | PROVIDERS: PCP Family Medicine; Visit Provider Family Medicine | DX: N76.0 Acute vaginitis (principal) | CPT/HCPCS: 87480; 87510; 87660 ==

== ENCOUNTER 2020-10-02 03:34 | Outpatient (CLI) | payer OTHER, MEDICAID, SELFPAY ==
[2020-10-02 10:02] LABS: ALT 25 U/L (14-59); AST 13 U/L (15-37); Albumin 3.5 g/dL (3.4-5.0); Alkaline Phosphatase 67 U/L (46-116); BUN 11 mg/dL (7-18); Bilirubin, Total 0.2 mg/dL (0.2-1.0); Calcium 8.6 mg/dL (8.5-10.1); Chloride 105 mmol/L (98-107); Estimated GFR 58.93 (mL/min/1.73m2); Glucose 106 mg/dL (74-106); Potassium 3.9 mmol/L (3.5-5.1); Sodium 142 mmol/L (136-145); Total Protein 6.6 g/dL (6.4-8.2)
== END 2020-10-02 03:35 | disposition home or self-care (01) ==
LOC: LBO 03:34
PROVIDERS: Urology; PCP Family Medicine; Visit Provider Nurse Practitioner Gerontology
DX: N39.0 Urinary tract infection, site not specified (principal); R10.9 Unspecified abdominal pain
CPT/HCPCS: 36415; 80053; 87077; 87086; 87186

== ENCOUNTER 2020-10-07 01:04 | Outpatient (CLI) | payer OTHER, MEDICAID, SELFPAY ==
--- NOTE | 2020-10-07 07:15 | DI.US_ITS ---
Exam(s) US RENAL EXAM: US RENAL CLINICAL HISTORY: 6 month monitoring structural features TECHNIQUE: Ultrasound of both kidneys performed using standard protocol. COMPARISON: No exams were available for comparison FINDINGS: RIGHT KIDNEY: Measures 10.3 cm in length. No cysts evident. Normal cortical thickness and corticomedullary differen tiation these images there is a possible nodule at the midpole level the right kidney. Measures appr oximately 16 x 15 millimeters No intrarenal calculi nor hydronephrosis. LEFT KIDNEY: Measures 10.6 cm in length. No cysts evident. Normal cortical thickness and corticomedullary differe ntiaion. No solids masses. No intrarenal calculi nor hydonephrosis. URINARY BLADDER: Prevoid volume is 224 cc Postvoid volume is 0 cc...... Patient perform self catheterization No evidence of bladder mass nor diverticuli. Ureterovesical jets: Both identified and appear symmetrical IMPRESSION: 1. No significant ultrasound findings in the left kidney. 2. Possible midpole level nodule in the right kidney measuring 1.6 x 1.5 cm. Recommend follow-up CT scan or MRI Postvoid-post catheterization residual volume in the bladder 0 cc. DATA REPOSITORY:
== END 2020-10-07 01:24 ==
PROVIDERS: PCP Family Medicine; Visit Provider Nurse Practitioner Gerontology
DX: N31.9 Neuromuscular dysfunction of bladder, unspecified (principal)
CPT/HCPCS: 76770

== ENCOUNTER 2020-10-11 04:26 | Outpatient (CLI) | payer OTHER, MEDICAID, SELFPAY ==
--- NOTE | 2020-10-11 07:00 | DI.NM_ITS ---
Exam(s) NM DTPA RENOGRAM W LASIX EXAM: NM DTPA RENOGRAM W LASIX CLINICAL HISTORY: F/U TO 2019,? FUNCTION AND OBSTRUCTION. COMPARISON: NM NM DTPA RENOGRAM W LASIX from 07/21/2019 TECHNIQUE: DTPA renogram with Lasix was performed and is compared with prior study July 2019. Split function following injection 11.4 millicuries of technetium 99 labeled DTPA shows 40.8 percent left a nd 59 percent right, unchanged from prior study. 26 milligrams of IV Lasix was injected and shows bi lateral unremarkable clearance curve unchanged from prior study. No gross renal cortical defect identified. FINDINGS: Split function renogram unchanged from prior study. No evidence urinary tract obstruction. IMPRESSION: DATA REPOSITORY:
== END 2020-10-11 04:46 ==
PROVIDERS: PCP Family Medicine; Visit Provider Nurse Practitioner Gerontology
DX: N13.9 Obstructive and reflux uropathy, unspecified (principal); N31.9 Neuromuscular dysfunction of bladder, unspecified
CPT/HCPCS: 78708

== ENCOUNTER → 2020-10-21 10:34 | Outpatient (BNVA) | payer OTHER, MEDICAID, SELFPAY | PROVIDERS: PCP Family Medicine; Referring Provider Family Medicine; Visit Provider Nurse Practitioner Gerontology | DX: N31.8 Other neuromuscular dysfunction of bladder (principal); N39.0 Urinary tract infection, site not specified | CPT/HCPCS: 81003; 99214 ==

== ENCOUNTER 2020-12-05 10:20 | Outpatient (REF) | payer OTHER, MEDICAID, SELFPAY ==
[2020-12-05 16:25] LABS: Bilirubin Negative (Negative); Blood Negative (Negative); Clarity Clear (Clear); Glucose Negative (Negative); Ketones Negative (Negative); Leukocyte Esterase Negative (Negative); Nitrite Negative (Negative); Specific Gravity <= 1.005 (1.005-1.025); Urobilinogen 0.2 EU/dL (Up TO 0.2)
== END 2020-12-05 10:21 | disposition home or self-care (01) ==
LOC: LBN 10:20
PROVIDERS: PCP Family Medicine; Visit Provider Nurse Practitioner Gerontology
DX: N39.0 Urinary tract infection, site not specified (principal)
CPT/HCPCS: 81003

== ENCOUNTER 2020-12-26 11:45 | Outpatient (CLI) | payer OTHER, MEDICAID, SELFPAY ==
--- NOTE | 2020-12-26 09:30 | DI.RAD_ITS ---
Exam(s) XR HIP LT COMPLETE AP PELVIS EXAM: XR HIP LT COMPLETE AP PELVIS CLINICAL HISTORY: s/p fall 2 weeks ago-pain laterally with movement, M25.559 PAIN IN HIP. TECHNIQUE: 2D digital imaging was performed. COMPARISON: CR LUMBAR SPINE COMPLETE from 08/08/2015 CT ABD PELVIS WO CONTRAST from 06/02/2016 FINDINGS: There is no evidence of pelvic nor hip fracture. Again noted previously described abnormal findings in the sacrum, probably consistent spina bifida. This is well seen on the pelvic CT scan of May 2016. There is no evidence of hip dysplasia. No hip joint space narrowing. Bone density is otherwise norm al. IMPRESSION: No fracture evident. Spina bifida. DATA REPOSITORY: RADIATION DOSE DELIVERED:
== END 2020-12-26 12:05 ==
PROVIDERS: PCP Family Medicine; Visit Provider Family Medicine
DX: M25.552 Pain in left hip (principal); Z91.81 History of falling
CPT/HCPCS: 73502

== ENCOUNTER 2021-03-11 11:42 | Outpatient (CLI) | payer OTHER, MEDICAID, SELFPAY ==
--- NOTE | 2021-03-11 11:00 | DI.RAD_ITS ---
Exam(s) XR SACRUM COCCYX XR LUMBAR SPINE COMPLETE EXAM: XR LUMBAR SPINE COMPLETE and XR sacrum coccyx CLINICAL HISTORY: hard fall on buttocks; excruciating left hip pain,sacral and back pain. TECHNIQUE: 2D digital imaging was performed of the lumbar spine. Five images were obtained. AP, la teral, right oblique, left oblique and L5-S1 spot views were obtained. Three images of the sacrum we re obtained. COMPARISON: CR LUMBAR SPINE COMPLETE from 10/10/2007 CR LUMBAR SPINE COMPLETE from 10/10/2007 FINDINGS: BONES: No fracture or destructive lesion. There is again seen spina bifida involving L5 and the sacru m. Mild degenerative changes of the facets at L5-S1 is noted. DISKS: Intervertebral disc spaces are maintained. ALIGNMENT: Lumbar spinal alignment is within normal limits. No spondylolysis or spondylolisthesis. SOFT TISSUE: Normal. IMPRESSION: No acute fracture or subluxation. DATA REPOSITORY: RADIATION DOSE DELIVERED:
--- NOTE | 2021-03-11 11:00 | DI.RAD_ITS ---
Exam(s) XR HIP LT COMPLETE AP PELVIS EXAM: XR HIP LT COMPLETE AP PELVIS CLINICAL HISTORY: fall on buttocks and l hip,sacral and hip pain,[id number],m25.559,m53.3. TECHNIQUE: 2D digital imaging was performed of the left hip. Two views were obtained. AP pelvis an d lateral left hip views were obtained. COMPARISON: CR XR HIP LT COMPLETE AP PELVIS from 12/26/2020 FINDINGS: BONES: No acute fracture is present. Note is again made of spina bifida in the lower lumbar spine and sacrum. JOINTS: No dislocation present. SOFT TISSUE: Normal. IMPRESSION: No acute fracture or dislocation. DATA REPOSITORY: RADIATION DOSE DELIVERED:
== END 2021-03-11 12:02 ==
PROVIDERS: PCP Family Medicine; Visit Provider Family Medicine
DX: M25.552 Pain in left hip (principal); M53.3 Sacrococcygeal disorders, not elsewhere classified; M54.59 Other low back pain; M47.817 Spondylosis without myelopathy or radiculopathy, lumbosacral region; W19.XXXA Unspecified fall, initial encounter
CPT/HCPCS: 72110; 72220; 73502

== ENCOUNTER 2021-03-11 19:07 | Outpatient (REF) | payer OTHER, MEDICAID, SELFPAY | END 2021-03-11 19:08 | disposition home or self-care (01) | LOC: LBN 19:07 | PROVIDERS: PCP Family Medicine; Visit Provider Family Medicine ==

== ENCOUNTER 2021-03-11 19:23 | Outpatient (REF) | payer OTHER, MEDICAID, SELFPAY ==
[2021-03-11 13:49] LABS: Bilirubin Negative (Negative); Blood Negative (Negative); Clarity Clear (Clear); Glucose Negative (Negative); Ketones Negative (Negative); Leukocyte Esterase Negative (Negative); Nitrite Negative (Negative); Urobilinogen 0.2 EU/dL (Up TO 0.2)
== END 2021-03-11 19:24 | disposition home or self-care (01) ==
LOC: LBN 19:23
PROVIDERS: PCP Family Medicine; Visit Provider Family Medicine
DX: M54.9 Dorsalgia, unspecified (principal)
CPT/HCPCS: 81003

== ENCOUNTER → 2021-04-18 01:17 | Outpatient (CLI) | payer OTHER, MEDICAID, SELFPAY ==
--- NOTE | 2021-04-18 06:30 | DI.US_ITS ---
Exam(s) US RENAL EXAM: US RENAL CLINICAL HISTORY: monitoring kidney structure,NEUROGENIC BLADDER,N31.9. TECHNIQUE: Renteria scale, color and spectral Doppler were used. COMPARISON: US US RENAL from 10/07/2020 CR XR LUMBAR SPINE COMPLETE from 03/11/2021 FINDINGS: Renal size in cm: Right: 10.3. Left: 8.5. Echogenicity: Normal. Hydronephrosis: No. Cyst or mass: There is a persistent protuberance on the lateral aspect of the right kidney. This may represent the normal renal cortex. Underlying mass cannot be entirely excluded. Nephrolithiasis: No. Other findings: None. Bladder:Normal. Ureteral jets: Right: Visualized and unremarkable. Left: Visualized and unremarkable. Prevoid vol:457 cc Postvoid vol:0 cc. The patient self catheterizes. Renal color flow: Symmetric and within normal limits. IMPRESSION: There is a persistent protuberance in the lateral aspect of the right kidney. Normal parenchyma vers us underlying mass. CT or MRI scan of the kidneys is recommended for further evaluation. DATA REPOSITORY:
== END ==
PROVIDERS: PCP Family Medicine; Visit Provider Nurse Practitioner Gerontology
DX: N31.8 Other neuromuscular dysfunction of bladder (principal); N28.89 Other specified disorders of kidney and ureter
CPT/HCPCS: 76770

== ENCOUNTER → 2021-04-24 10:14 | Outpatient (BNVA) | payer OTHER, MEDICAID, SELFPAY | PROVIDERS: PCP Family Medicine; Visit Provider Nurse Practitioner Gerontology | DX: R31.9 Hematuria, unspecified (principal); N31.9 Neuromuscular dysfunction of bladder, unspecified; N28.89 Other specified disorders of kidney and ureter | CPT/HCPCS: 81003; 99214 ==

== ENCOUNTER → 2021-05-07 00:56 | Outpatient (CLI) | payer OTHER, MEDICAID, SELFPAY ==
[2021-05-07 08:19] LABS: CREATININE 0.9 mg/dL (0.55-1.02)
[2021-05-07] MEDS: Omnipaque 350 MG/ML 100 ML BTL IJ (08:34)
[2021-05-07] MEDS: Normal Saline Flush 10 ML SYR IVP (08:35)
--- NOTE | 2021-05-07 08:43 | DI.CT_ITS ---
Exam(s) CT ABDOMEN WO/W EXAM: CT ABDOMEN WO/W CLINICAL HISTORY: rt renal mass on saima,n28.89 TECHNIQUE: COMPARISON: CT ABD/PELVIS WO W CONTRAST from 07/02/2017 FINDINGS: CT examination of the upper abdomen was performed utilizing noncontrast scanning and venous phase and 5 minutes delayed imaging following injection of 100 cc of Omnipaque 350. Recent ultrasound examina tion raise the possibility right renal contour abnormality, rule out underlying mass. Renal cortex appears normal bilaterally. There is no renal mass. Collecting system is normal in porfirio earance bilaterally as are the proximal ureters. No nephrolithiasis. No hydronephrosis. Adrenals appear normal. Visualized aorta and visceral branches appear intact. Liver spleen and panc reas are unremarkable. No biliary dilatation. Gallbladder is CT normal. Images obtained through the lung bases are unremarkable. Visualized bowel unremarkable. No abdominal wall hernia. IMPRESSION: Normal renal CT. No evidence of a renal mass or hydronephrosis. RADIATION DOSE DELIVERED: 1,451.19mGy.cm Total DLP !Error CTDIvol RADIATION OPTIMIZATION: All CT scans at this facility use at least one of these dose optimization te chniques: automated exposure control; mA and/or kV adjustment per patient size (includes targeted exa ms where dose is matched to clinical indication); or iterative reconstruction.
== END ==
PROVIDERS: PCP Family Medicine; Visit Provider Nurse Practitioner Gerontology
DX: N28.89 Other specified disorders of kidney and ureter (principal)
CPT/HCPCS: 74170; 82565; J3490

== ENCOUNTER 2021-06-02 03:46 | Outpatient (CLI) | payer OTHER, MEDICAID, SELFPAY ==
[2021-06-02 13:29] LABS: HCT 45.9 % (36.0-46.0); HGB 14.8 g/dL (11.2-15.7); MCH 29.4 pg (27.0-33.0); MCHC 32.2 % (32.0-36.0); MCV 91.3 fL (80-95); MPV 8.8 fL (8.0-11.0); Platelet Count 369 10^3/uL (130-400); RBC 5.03 10^6/uL (3.93-5.22); RDW 13.5 % (11.7-14.6); RDW-SD 45.9 fL
[2021-06-02 13:49] LABS: Hemoglobin A1C 6.1 % (<5.7)
== END 2021-06-02 03:47 | disposition home or self-care (01) ==
LOC: LBO 03:46
PROVIDERS: PCP Family Medicine; Visit Provider Family Medicine
DX: E11.9 Type 2 diabetes mellitus without complications (principal)
CPT/HCPCS: 36415; 85027; 83036

== ENCOUNTER 2021-06-26 01:32 | Outpatient (CLI) | payer OTHER, MEDICAID, SELFPAY ==
--- NOTE | 2021-06-26 07:00 | DI.MAMMO_ITS ---
Exam(s) MAMMO SCREENING EXAM: MAMMO SCREENING CLINICAL HISTORY: screening,Z12.39. TECHNIQUE: Bilateral full field digital CC and MLO mammographic images were obtained with 3D tomosyn thesis and utilizing computer aided detection (CAD). COMPARISON: Prior mammograms were reviewed, the most recent being May 2020. FINDINGS: There are no new spiculated masses nor malignant appearing microcalcification groups. There is no significant architectural distortion nor skin thickening-retraction. IMPRESSION: No radiographic evidence of malignancy. BI-RADS Category 1 - Negative Breast Density - Category B - Scattered areas of fibroglandular density Breast density Category C or D implies that the patient has dense breast tissue. Dense breast tissue can make it harder to find cancer on a mammogram. Dense breast tissue is also associated with an incr eased risk of breast cancer. This information about the result of the mammogram report was provided to the patient to raise their awareness. Use this report when you speak with the patient about their risks for breast cancer, which includes their family history. At that time, you may recommend additional screening tests (Ultrasoun d or MRI) as these tests may add significant information. A negative radiographic report should not delay biopsy if a dominant or clinically suspicious mass is present. Up to ten percent of cancers are not identified on mammography. A negative report may reinforce clinical impression. Adenosis and dense breasts may obscure an underlying neoplasm. False positive reports average 6 to 10%. Patient will receive a letter notifying them of these results.
== END 2021-06-26 01:52 ==
PROVIDERS: PCP Family Medicine; Visit Provider Family Medicine
DX: Z12.31 Encounter for screening mammogram for malignant neoplasm of breast (principal)
CPT/HCPCS: 77063; 77067

== ENCOUNTER → 2021-10-10 00:04 | Outpatient (CLI) | payer OTHER, MEDICAID, SELFPAY ==
--- NOTE | 2021-10-10 07:15 | DI.NM_ITS ---
Exam(s) NM DTPA RENOGRAM W LASIX CLINICAL HISTORY: monitoring renal function status,NEUROGENIC BLADDER, N31.9. COMPARISON: NM NM DTPA RENOGRAM W LASIX from 10/11/2020 EXAMINATION: Dose: 12 mCi Tc-99m MAG3 Images: According to protocol. Twenty-fivemg Lasix was administered after peak uptake in the renal c ortex at approximately 12 min. FINDINGS: The time activity curve reveals no delay in the washout of either collecting system. There unremarka ble clearance curves present. Split renal function: Right: 55 % Left: 45 % IMPRESSION: 1. Dilated, non-obstructed collecting system. 2. Split renal function is 55 percent on the right and 45 percent on the left. This compares to 59 p ercent on the right and 41 percent on the left on the prior examination dated 10/11/2020.
[2021-10-10] MEDS: Furosemide 40 MG/4 ML VIAL 25 MG IVP (11:21)
== END ==
PROVIDERS: PCP Family Medicine; Visit Provider Nurse Practitioner Gerontology
DX: N31.9 Neuromuscular dysfunction of bladder, unspecified (principal)
CPT/HCPCS: 78708; J1940

== ENCOUNTER → 2021-10-30 09:18 | Outpatient (BNVA) | payer OTHER, MEDICAID, SELFPAY | PROVIDERS: PCP Family Medicine; Referring Provider Family Medicine; Visit Provider Nurse Practitioner Gerontology | DX: Q05.9 Spina bifida, unspecified (principal); R10.32 Left lower quadrant pain; R19.7 Diarrhea, unspecified; R31.9 Hematuria, unspecified; N28.89 Other specified disorders of kidney and ureter | CPT/HCPCS: 81003; 99214 ==

== ENCOUNTER 2021-10-30 17:34 | Outpatient (REF) | payer OTHER, MEDICAID, SELFPAY | END 2021-10-30 17:35 | disposition home or self-care (01) | LOC: LBN 17:34 | PROVIDERS: PCP Family Medicine; Visit Provider Nurse Practitioner Gerontology | DX: R10.9 Unspecified abdominal pain (principal); R31.9 Hematuria, unspecified | CPT/HCPCS: 87077; 87086; 87186 ==

== ENCOUNTER 2022-01-27 03:03 | Outpatient (CLI) | payer OTHER, MEDICAID, SELFPAY ==
[2022-01-27 12:57] LABS: ALT 21 U/L (14-59); AST 17 U/L (15-37); Albumin 3.4 g/dL (3.4-5.0); Alkaline Phosphatase 75 U/L (46-116); Anion Gap 9.7 mmol/L (3-11); BUN 15 mg/dL (7-18); Bilirubin, Total 0.3 mg/dL (0.2-1.0); CO2 27.3 mmol/L (21.0-32.0); CREATININE 1.1 mg/dL (0.55-1.02); Calcium 8.6 mg/dL (8.5-10.1); Chloride 101 mmol/L (98-107); Estimated GFR 61.22 (mL/min/1.73m2); Glucose 90 mg/dL (74-106); Potassium 4.1 mmol/L (3.5-5.1); Sodium 138 mmol/L (136-145); Total Protein 7.3 g/dL (6.4-8.2)
[2022-01-27 13:25] LABS: Hemoglobin A1C 6.1 % (<5.7)
== END 2022-01-27 03:04 | disposition home or self-care (01) ==
LOC: LOS 03:03
PROVIDERS: PCP Family Medicine; Visit Provider Family Medicine
DX: R73.03 Prediabetes (principal)
CPT/HCPCS: 36415; 80053; 83036

== ENCOUNTER 2022-04-08 02:12 | Outpatient (CLI) | payer OTHER, MEDICAID, SELFPAY ==
--- NOTE | 2022-04-08 07:15 | DI.US_ITS ---
Exam(s) US RENAL EXAM: US RENAL CLINICAL HISTORY: monitoring hydro with neurogenic bladder,hematuria,r31.9,n31.9. TECHNIQUE: Renteria scale, color and spectral Doppler were used. COMPARISON: CT CT ABDOMEN WO/W from 05/07/2021 FINDINGS: Renal size in cm: Right: 10.0 left: 9.8 Echogenicity: Normal Hydronephrosis: No Cyst or mass: No Nephrolithiasis: No Bladder:Normal Prevoid vol:351 Postvoid vol:19, patient self catheterizes. IMPRESSION: No evidence of hydronephrosis. DATA REPOSITORY:
== END 2022-04-08 02:32 ==
PROVIDERS: PCP Family Medicine; Visit Provider Nurse Practitioner Gerontology
DX: R31.9 Hematuria, unspecified (principal); N31.8 Other neuromuscular dysfunction of bladder; N13.30 Unspecified hydronephrosis
CPT/HCPCS: 76770

== ENCOUNTER 2022-04-13 13:32 | Outpatient (CLI) | payer OTHER, MEDICAID, SELFPAY | END 2022-04-13 13:33 | disposition home or self-care (01) | LOC: LBO 13:33 | PROVIDERS: PCP Family Medicine; Visit Provider Nurse Practitioner Gerontology | DX: R31.9 Hematuria, unspecified (principal); N31.8 Other neuromuscular dysfunction of bladder; Q05.9 Spina bifida, unspecified; Z96.0 Presence of urogenital implants | CPT/HCPCS: 81003; 99214 ==

== ENCOUNTER 2022-04-13 15:20 | Outpatient (REF) | payer OTHER, MEDICAID, SELFPAY | END 2022-04-13 15:21 | disposition home or self-care (01) | LOC: LBN 15:20 | PROVIDERS: PCP Family Medicine; Visit Provider Nurse Practitioner Gerontology | DX: R30.0 Dysuria (principal); R31.9 Hematuria, unspecified | CPT/HCPCS: 87077; 87086; 87186 ==

== ENCOUNTER 2022-05-29 11:41 | Emergency (ER) | payer OTHER, MEDICAID, SELFPAY ==
[2022-05-29 12:18] VITALS: BP 126/75; PULSE 72; RESP 18; TEMP 37; O2SAT 95
[2022-05-29 14:09] LABS: Lactate 0.7 mmol/L (0.6-1.4)
[2022-05-29 14:10] LABS: Abs Immature Grans 0.03 10^3/uL (0.0-0.06); Absolute Eosinophil Count 0.28 10^3/uL (0.0-0.7); Absolute Lymphocyte Count 3.07 10^3/uL (1.2-3.4); Absolute Monocyte Count 0.41 10^3/uL (0.1-0.8); Absolute Neutrophil Count 6.65 10^3/uL (1.2-6.7); Basophils % 0.9; Eosinophils % 2.7; HCT 46.9 % (36.0-46.0); HGB 15.8 g/dL (11.2-15.7); Immature Grans % 0.3; Lymphocytes % 29.1; MCH 29.8 pg (27.0-33.0); MCHC 33.7 % (32.0-36.0); MCV 89 fL (80-95); MPV 8.5 fL (8.0-11.0); Monocytes % 3.9; Neutrophils % 63.1; Platelet Count 340 10^3/uL (130-400); RDW 13.2 % (11.7-14.6); RDW-SD 43.3 fL; WBC 10.54 10^3/uL (4.4-10.8)
[2022-05-29 14:14] LABS: Bilirubin Negative (Negative); Blood Negative (Negative); Clarity Clear (Clear); Glucose Negative (Negative); Ketones Negative (Negative); Leukocyte Esterase Negative (Negative); Nitrite Negative (Negative); Urobilinogen 0.2 mg/dL (Up to 0.2)
--- NOTE | 2022-05-29 14:25 | DI.CT_ITS ---
Exam(s) CT RENAL COLIC WO EXAM: CT RENAL COLIC WO CLINICAL HISTORY: abd flank and superpubic pain. TECHNIQUE: Imaging Protocol: Axial computed tomography images with coronal and sagittal reformatted images were created and reviewed. COMPARISON: CT ABD/PELVIS WO W CONTRAST from 07/02/[address] ABDOMEN WO/W from 05/07/2021 US US RENAL from 04/08/2022 FINDINGS: ABDOMEN: Lung Bases: Normal where visualized. Liver: Normal density. No measurable mass. Gallbladder and biliary tract: No radiodense calculus or biliary ductal dilation. Pancreas: Normal density, no abnormal calcifications or inflammatory process. Spleen: Normal. Kidneys: Normal size, contour and axis.No radiodense stones or obstructive uropathy. No masses seen. Adrenal glands: No mass is seen. Lymph nodes: Within normal limits. Abdominal Aorta: Abdominal portion non-dilated. Atherosclerosis was present. PELVIS: Bladder:Symmetric distention, no gross wall thickening. Bowel: No obstruction or bowel wall thickening. No evidence of appendicitis. Peritoneal cavity: No ascites, collection or mesenteric inflammatory response. No free air. Reproductive organs: Status post hysterectomy. Bones: Within normal limits. Soft Tissues: There is diffuse fatty infiltration of the gluteal muscles on the left. Moderate fatty infiltration of the right gluteal muscles is seen. IMPRESSION: 1. Unremarkable CT scan of the abdomen and pelvis. 2. Findings were discussed with Taiwo Chua at 3:41 p.m. on 05/29/2022. RADIATION DOSE DELIVERED: 739.99mGy.cm Total DLP DATA REPOSITORY: All CT scans at this facility are submitted to the National Radiology Data Registry (NRDR) Dose Index Registry (DIR) with the [employer] ([employer]). RADIATION OPTIMIZATION: All CT scans at this facility use at least one of these dose optimization te chniques: automated exposure control; mA and/or kV adjustment per patient size (includes targeted exa ms where dose is matched to clinical indication); or iterative reconstruction.
[2022-05-29 14:36] LABS: ALT 24 U/L (14-59); AST 17 U/L (15-37); Albumin 3.7 g/dL (3.4-5.0); Alkaline Phosphatase 88 U/L (46-116); Anion Gap 9.7 mmol/L (3-11); BUN 14 mg/dL (7-18); Bilirubin, Total 0.2 mg/dL (0.2-1.0); CO2 25.3 mmol/L (21.0-32.0); CREATININE 0.9 mg/dL (0.55-1.02); Calcium 8.9 mg/dL (8.5-10.1); Chloride 106 mmol/L (98-107); Glucose 94 mg/dL (74-106); Potassium 4.3 mmol/L (3.5-5.1); Sodium 141 mmol/L (136-145); Total Protein 7.5 g/dL (6.4-8.2)
[2022-05-29] MEDS: Ketorolac 15 MG/ML VIAL IVP (14:40)
[2022-05-29 15:00] VITALS: BP 119/62; PULSE 61; RESP 16; O2SAT 98
--- NOTE | 2022-05-29 15:00 | W.ED.GENAD ---
Discharge Plan Disposition Patient Disposition: Home Discharge Details Clinical Impression: Cystitis Primary Care Provider: Melanie Calhoun ED Provider: Taiwo Chua Home Meds and New Rx's Prescriptions: New cephalexin 500 mg tablet 500 mg PO BID 5 Days Qty: 10 0RF Continued epinephrine [EpiPen 2-Raji] 0.3 mg/0.3 mL auto-injector 0.3 mg IM ONCE MDD 1 PRN (Reason: bronchodilation) Qty: 2 0RF levalbuterol tartrate 45 mcg/actuation HFA aerosol inhaler 2 inh IH Q6H PRN (Reason: shortness of breath or wheezing) Qty: 15 12RF (DME) nebulizers [AeroEclipse II Nebulizer] 1 EACH misc 1 ea Miscellaneous TID Qty: 1 Rx Instructions: has home machine, needs to continue (DME) Azo Test Strips Strip See Rx Instructions .ROUTE .MEDSUPPLY Qty: 3 12RF Rx Instructions: As directed fluticasone furoate-vilanterol [Breo Ellipta] 200-25 mcg/dose blister with device 1 inh IH DAILY Qty: 180 4RF montelukast [Singulair] 10 mg tablet 10 mg PO DAILY Qty: 90 12RF (DME) Bard Coude Tip Catheter 12 Fr misc 1 ea Miscellaneous 1-2 Qty: 60 12RF Rx Instructions: 14 ukrainian/6/ 16cm. Dx: R33.9; straight tip w/ no connector fluconazole 150 mg tablet 150 mg PO Q3D Qty: 2 0RF Rx Instructions: may repeat second dose 72 hrs after first dose if symptoms persist Spiriva Respimat 2.5 mcg/actuation mist 2 puff inhalation DAILY Qty: 12 8RF ibuprofen 600 mg tablet 600 mg PO Q6H PRN Qty: 30 6RF Hold Instructions: Home Medication placed on hold at Doctor's office cephalexin 500 mg tablet 500 mg PO TID Qty: 21 0RF Rx Instructions: Take as directed to treat UTI albuterol sulfate 2.5 mg /3 mL (0.083 %) solution for nebulization 2.5 mg Inhalation BID PRN (Reason: bronchospasm) Qty: 90 6RF Rx Instructions: 493.90 and J45.909 ketorolac 10 mg tablet 10 mg PO Q8H PRN PRN (Reason: pain) Qty: 14 0RF Rx Instructions: Do not use NSAIDS (ibuprofen) when using this medication loratadine 10 mg tablet 20 mg PO HS Qty: 180 5RF sennosides [Senokot] 1 TAB tablet 1 ea PO PRN PRN No Action fluconazole [Diflucan] 150 mg tablet 150 mg PO ONCE Qty: 1 0RF Rx Instructions: MAY REPEAT IF NOT IMPROVED. Discharge Instructions Instructions: Pelvic Pain in Women (ED) Additional Instructions: Please take your medications as prescribed and fill your ketorolac from urology and take this for any further discomfort. You have been given a paper prescription for antibiotics but you may hold off on filling this unless you establish any significant worsening of symptoms. Please follow-up with urology or return to the emergency department for new or significant worsening of symptoms. Referrals: [facility] [Provider Group] (Please call the office early next week for arrangement of follow-up appointment) Discharge Data Discharge Date/Time-TO BE ENTERED AT DEPARTURE: 05/29/22 17:51 Medical Decision Making Patient presenting to the emergency department for chief complaint of suprapubic pain, flank pain, blood and pus noted in her urine. She states that she has to self cath due to neurogenic bladder and has done this for years. Patient has attempted to contact the urology office but has been unable to contact them causing her to come to the emergency department. Patient states malaise, denies fever vomiting chest pain shortness of breath or other symptoms. Physical exam shows bilateral CVA tenderness, and significant suprapubic tenderness. I do's have to mention that patient's countenance does not match her reported pain during examination. No other worrisome findings with vital signs are stable. We will plan on checking labs, urinalysis, and CT imaging. Reviewed patient's labs and patient has no significant leukocytosis or shift, there is some slight increase of hemoglobin of 15.8 with elevated RBCs and hematocrit otherwise CBC is all within normal range. CMP is completely unremarkable and within normal range, urinalysis also is all within normal rangeshows no signs of infection. Lactate is also normal. Pending CT imaging I did speak with Dr. Kasper who was very familiar with the patient. He states that patient has presented with similar complaints in the past with completely negative benign work-up. He states if work-up continues to be benign he recommended encouraging patient to continue to take ketorolac and to follow-up with her office next week. Also did state that patient frequently is concerned about infection when she has symptoms similar to this so did recommend urine culture with shared decision making discussion regarding antibiotics or not. Reviewed CT imaging along with radiologist interpretation which shows no acute findings. Discussed findings with patient and that there were no obvious signs of bladder infection. Did discuss with patient that this could be her lupus or other inflammatory bladder issues causing her cystitis. Will prescribe patient a pocket prescription for Keflex given that she has had urinary tract infections similar to this in the past but told patient to hold on starting antibiotic unless she has severe worsening of symptoms and informed her that we would contact her with any positive culture results. After discussion of diagnosis and plan of care patient has no further needs, questions, or concerns and states clear understanding to return to the emergency department for any worsening symptoms. This documentation was generated using [employer] dictation system, please disregard any oddities of phrase or misspellings. HPI General Mode of arrival: ambulatory. Date/Time Provider Initiated Documentation: 05/29/22 13:38. Limitations to Documentation: no limitations. Information obtained by: patient and RN notes reviewed. History of Present Illness 52 year old F presents to the emergency department with the chief complaint of Suprapubic pain, described as moderate, with intensity rated at 7. Quality is described as aching, and is localized to the abdomen. Patient reports no radiation. Patient started experiencing this week(s) (1) and it has been constant. No relieving factors improve symptom(s), No exacerbating factors reported . Patient notes no other symptoms.. Patient did receive the following treatments prior to arrival, none Related Data Home Medications Medication Instructions Recorded Confirmed sennosides 8.6 mg tablet (Senokot) 1 ea PO PRN PRN 08/04/16 01/19/22 nebulizers (AeroEclipse II #1 ea 10/19/16 01/19/22 Nebulizer) leukocyte test (Azo Test Strips) #3 ea 06/27/19 01/19/22 catheter 12 Fr (Bard Coude Tip #60 ea 05/06/21 01/19/22 Catheter) fluticasone furoate 200 1 inh inhalation DAILY #180 ea 05/06/21 01/19/22 mcg-vilanterol 25 mcg/dose inhalation powder (Breo Ellipta) montelukast 10 mg tablet 10 mg PO DAILY #90 tab-caps 05/06/21 01/19/22 (Singulair) epinephrine 0.3 mg/0.3 mL 0.3 mg (0.3 mL) IM ONCE PRN 05/27/21 01/19/22 injection, auto-injector (EpiPen bronchodilation #2 pens 2-Raji) levalbuterol tartrate 45 2 inh inhalation Q6H PRN shortness 05/27/21 01/19/22 mcg/actuation aerosol inhaler of breath or wheezing #15 grams fluconazole 150 mg tablet 150 mg PO ONCE #1 tab-cap 08/11/21 (Diflucan) fluconazole 150 mg tablet 150 mg PO Q3D #2 tabs 01/08/22 01/19/22 tiotropium bromide 2.5 2 puff inhalation DAILY #12 grams 02/23/22 mcg/actuation mist for inhalation (Spiriva Respimat) ibuprofen 600 mg tablet 600 mg PO Q6H PRN #30 tab-caps 03/24/22 cephalexin 500 mg tablet 500 mg PO TID #21 tabs 04/16/22 albuterol sulfate 2.5 mg/3 mL 2.5 mg (3 mL) inhalation BID PRN 04/20/22 (0.083 %) solution for nebulization bronchospasm #90 mL ketorolac 10 mg tablet 10 mg PO Q8H PRN PRN pain #14 tabs 05/25/22 loratadine 10 mg tablet 20 mg PO HS #180 tabs 05/25/22 cephalexin 500 mg tablet 500 mg PO BID 5 days #10 tabs 05/29/22 Previous Rx's Medication Instructions Recorded leukocyte test (Azo Test Strips) #3 ea 06/27/19 catheter 12 Fr (Bard Coude Tip #60 ea 05/06/21 Catheter) fluticasone furoate 200 1 inh inhalation DAILY #180 ea 05/06/21 mcg-vilanterol 25 mcg/dose inhalation powder (Breo Ellipta) montelukast 10 mg tablet 10 mg PO DAILY #90 tab-caps 05/06/21 (Singulair) epinephrine 0.3 mg/0.3 mL 0.3 mg (0.3 mL) IM ONCE PRN 05/27/21 injection, auto-injector (EpiPen bronchodilation #2 pens 2-Raji) levalbuterol tartrate 45 2 inh inhalation Q6H PRN shortness 05/27/21 mcg/actuation aerosol inhaler of breath or wheezing #15 grams fluconazole 150 mg tablet 150 mg PO ONCE #1 tab-cap 08/11/21 (Diflucan) fluconazole 150 mg tablet 150 mg PO Q3D #2 tabs 01/08/22 tiotropium bromide 2.5 2 puff inhalation DAILY #12 grams 02/23/22 mcg/actuation mist for inhalation (Spiriva Respimat) ibuprofen 600 mg tablet 600 mg PO Q6H PRN #30 tab-caps 03/24/22 cephalexin 500 mg tablet 500 mg PO TID #21 tabs 04/16/22 albuterol sulfate 2.5 mg/3 mL 2.5 mg (3 mL) inhalation BID PRN 04/20/22 (0.083 %) solution for nebulization bronchospasm #90 mL ketorolac 10 mg tablet 10 mg PO Q8H PRN PRN pain #14 tabs 05/25/22 loratadine 10 mg tablet 20 mg PO HS #180 tabs 05/25/22 cephalexin 500 mg tablet 500 mg PO BID 5 days #10 tabs 05/29/22 Allergies Allergy/AdvReac Type Severity Reaction Status Date / Time Beef Containing Products Allergy Severe Verified 04/13/22 12:48 cheese Allergy Severe Verified 04/13/22 12:48 egg Allergy Severe Verified 04/13/22 12:48 fluticasone propionate Allergy Severe Anaphylaxsi Verified 04/13/22 12:48 [From Advair Diskus] s latex Allergy Severe HIVES/SOB Verified 04/13/22 12:48 Pork/Porcine Containing Allergy Severe Verified 04/13/22 12:48 Products Sulfa (Sulfonamide Allergy Severe HIVES/VOMIT Verified 04/13/22 12:48 Antibiotics) ING bacitracin Allergy Intermediate RASH Verified 04/13/22 12:48 [From Triple Antibiotic] budesonide [From Symbicort] Allergy Intermediate Hives Verified 04/13/22 12:48 cat dander Allergy Intermediate Verified 04/13/22 12:48 colistimethate sodium Allergy Intermediate RASH Verified 04/13/22 12:48 [From Triple Antibiotic] dog dander Allergy Intermediate Verified 04/13/22 12:48 famotidine Allergy Intermediate Facial Verified 04/13/22 12:48 swelling formoterol fumarate Allergy Intermediate Hives Verified 04/13/22 12:48 [From Symbicort] gemfibrozil Allergy Intermediate Skin Rash Verified 04/13/22 12:48 gramicidin D Allergy Intermediate RASH Verified 04/13/22 12:48 [From Triple Antibiotic] neomycin sulfate Allergy Intermediate RASH Verified 04/13/22 12:48 [From Triple Antibiotic] polymyxin B Allergy Intermediate RASH Verified 04/13/22 12:48 [From Triple Antibiotic] pramoxine HCl Allergy Intermediate RASH Verified 04/13/22 12:48 [From Triple Antibiotic] ranitidine Allergy Intermediate Verified 04/13/22 12:48 salmeterol xinafoate Allergy Intermediate Hives Verified 04/13/22 12:48 [From Advair Diskus] ciprofloxacin Allergy Unknown Skin Rash Verified 04/13/22 12:48 doxycycline Allergy Unknown Skin Rash Verified 04/13/22 12:48 ezetimibe [Ezetimibe] Allergy Unknown SKIN RASH Verified 04/13/22 12:48 black pepper AdvReac Severe hives Verified 04/13/22 12:48 atorvastatin AdvReac Intermediate Diarrhea Verified 04/13/22 12:48 fenofibrate AdvReac Intermediate YEAST Verified 04/13/22 12:48 INFECTION/COUGH Fish Containing Products AdvReac Intermediate Skin Rash Verified 04/13/22 12:48 morphine AdvReac Intermediate NAUSEA AND Verified 04/13/22 12:48 VOMITING niacin AdvReac Intermediate Chest pain Verified 04/13/22 12:48 omeprazole AdvReac Intermediate Chest Pain Verified 04/13/22 12:48 tramadol AdvReac Intermediate VOMITING Verified 04/13/22 12:48 azithromycin AdvReac Unknown DIARRHEA Verified 04/13/22 12:48 influenza virus vaccine, AdvReac Unknown PNEUMONIA Verified 04/13/22 12:48 specific FOR 7 MONTHS. Noqhtub-FRW-BdA Reductase AdvReac Unknown Hives, Verified 04/13/22 12:48 Inhibitor vomiting [Lyspfxk-Rrt-Nfs Reductase Inhibitor] oxybutynin AdvReac swelling, Verified 04/13/22 12:48 headache, backaches. TREES Allergy Intermediate Uncoded 04/13/22 12:48 General Stated Complaint: Urinary MANOJ: 3 Review of Systems Constitutional Constitutional: Denies body ache(s), Denies chills, Denies fever(s), Denies malaise and Denies weakness Cardiovascular Cardiovascular: Denies chest pain Respiratory Respiratory: Reports system reviewed and no additional complaints, except as documented Gastrointestinal Gastrointestinal: Denies abdominal pain, Denies nausea and Denies vomiting Genitourinary Genitourinary: Reports as per HPI, Reports hematuria and Reports flank pain Neurologic Neurologic: Denies confusion and Denies weakness Psychiatric Psychiatric: Denies confusion PFSH All Active Problems (Updated 05/29/22 @ 15:56 by Taiwo Chua NP) Cystitis (Acute) Pre-diabetes (Acute) Encounter for screening colonoscopy (Acute) Fall (Acute) Rotator cuff tear (Acute) Angioedema (Acute 12/03/14) Depressive disorder (Acute) Vaginal atrophy (Chronic 10/19/17) Neurogenic bladder (Chronic) CATHETERIZES EVERY 2-4 HOURS neurogenic colon Hyperlipidemia (Chronic) unable to tolerate statins Hematuria (Chronic 09/17/16) [facility] [place] Chronic cough (Chronic 03/25/15) Asthma (Chronic) Medical History Adhesive capsulitis of left shoulder Advanced care planning/counseling discussion Allergic rhinitis due to pollen (07/08/15) Asthma Bursitis of left shoulder Calcific tendinitis of left shoulder Magda albicans infection Cellulitis Cellulitis of chin Cellulitis of chin Chronic cough Chronic external ear infection (08/28/13) Contusion Depressive disorder Duodenitis 05/03/15- DR. RUIZ (PEPTIC) Elevated lipase 04/23/15 Epigastric pain 04/11/15 Epigastric pain (04/11/15) Episodic mood disorder Esophageal yeast infection Fatigue 01/06/12 Fatigue (01/06/12) GERD (gastroesophageal reflux disease) Giant hives 12/03/14 Hypertension Increased serum lipase level (04/23/15) Laceration Lung nodule < 6cm on CT 12/03/15 f/u in 8 mos--f/u neg for nodules 05/22 Nausea with vomiting, unspecified 04/23/15 Neurogenic bladder Piriformis muscle pain 06/25/15 Piriformis muscle pain (06/25/15) PND (post-nasal drip) Rash and nonspecific skin eruption (12/11/14) Rectal bleeding 07/30/15 Rectal hemorrhage COLONOSCOPY: INFLAMED SIGMOID, BX NEG; NEG STOOL CULTURE; NEG LACTOFERRIN Rectal hemorrhage (07/30/15) Shoulder pain, left Slow transit constipation Smoker Smoker Smoking Spina bifida, lumbar region TETHERED CORD Cold left lower leg Talipes equinovarus LOWER LEFT LEG SMALL AND COLD; HAS BEEN SURGICALLY CORRECTED Tendinitis of long head of biceps brachii of left shoulder Tick bite Unspecified episodic mood disorder Urinary reflux Urolithiasis Urolithiasis (08/06/16) Vaginitis Vesico-ureteric reflux Vesicoureteric reflux S/P VALVE REPLACEMENT Visit for wound check Surgical History BIOPSYS CLUB FOOT RELEASE LEFT Colonoscopy - [facility] [place] H/O surgical procedure s/p valve replacement to repair vesicuoureteral reflux History of bilateral ligation of fallopian tubes (12/13/13) History of bilateral tubal ligation 12/13/13 History of oophorectomy, unilateral 12/13/13 right History of surgical procedure History of unilateral oophorectomy (12/13/13) Hysterectomy, Laproscopic (~1997) prolapsed uterus Ligation of fallopian tube (~1997) Oophrectomy, Right PROCEDURES VESICULOURETERAL REFLUX S/P VALVE EPLACEMENT; 08/06/16 CYSTOSCOPY;B/L RETROGRADE PYELOGRAM;B/L FLEXIBLE URETEROSCOPY S/P laparoscopic hysterectomy 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 Maternal Grandmother Diabetes Hyperlipidemia Stroke Breast cancer Paternal Grandmother Essential hypertension Diabetes Hyperlipidemia Stroke Cancer Brother Spine degeneration Asthma Sister Cervical cancer Son Asthma Social History Smoking/Tobacco Use Status: Former Tobacco Use tobacco type: cigarettes Tobacco: How many years used: 10 Second Hand Exposure: Yes Smoking risk assessment performed?: Yes Alcohol Intake: never Drug use: Never Substance use type: does not use Caregiver/Support person: No Household members: none Housing: house Do you need help understanding health information?: Never Pets and animals: Yes Pets and animals: cat(s), dog(s) and other Details: perla Sexually active: No Do you think of yourself as: straight/heterosexual Current gender identity: female What is your relationship status?: refused to answer How often do you talk on the phone with friends or family?: three or more times per week How often do you get together with friends or relatives?: three or more times per week How often do you attend cheondoism or druze services?: decline to answer Do you belong to any clubs or organized social groups?: no Panel score (0-1 are the most socially isolated patients): 1 What type of physical activity do you participate in: walking Duration: > 90 minutes/day Frequency: daily Mitzi/Jehovah'S Witness: None Special mitzi needs: No Seatbelt use: always Helmet use: No Drive intox or ride w/intox crew truck driver: No Do you feel safe at home: Yes Do you feel safe in your relationship?: Yes Exam Const General: cooperative Orientation: alert, awake and oriented x3 Resp Effort & Inspection: normal respiratory effort and able to speak in complete sentences Auscultation: clear to auscultation bilaterally Cardio Rate: regular rate Rhythm: regular rhythm Heart Sounds: S1 normal and S2 normal GI Palpation: soft, no hepatosplenomegaly, not firm, no guarding, no masses, no pulsatile masses, not rigid, no splenomegaly and tender suprapubicly Auscultation: normal bowel sounds General: CVA tenderness Back/Spine/Pelvis Back: no CVA tenderness Neuro General: patient alert, patient awake, patient oriented x3, gait normal and moves all extremities Course Vital Signs Vital signs: Vital Signs Temperature 37.0 C 05/29/22 12:18 Pulse 72 05/29/22 12:18 Respiratory Rate 18 05/29/22 12:18 Blood Pressure 126/75 05/29/22 12:18 Pulse Oximetry 95 05/29/22 12:18 Temperature 37.0 C 05/29/22 12:18 Temperature Source Oral 05/29/22 12:18 Pulse 72 05/29/22 12:18 Respiratory Rate 18 05/29/22 12:18 Respiratory Effort Normal 05/29/22 13:54 Blood Pressure 126/75 05/29/22 12:18 Blood Pressure Position Sitting 05/29/22 12:18 Pulse Oximetry 95 05/29/22 12:18 Oxygen Delivery Method Room Air 05/29/22 12:18 Oxygen Flow Rate 0 05/29/22 12:18 Pain Level 7 05/29/22 13:54 Lab/Test Results Lab/Test Results: Laboratory Tests Range/Units 05/29/22 05/29/22 05/29/22 12:30 14:05 14:05 WBC (4.4-10.8) 10^3/uL RBC (3.93-5.22) 10^6/uL Hgb (11.2-15.7) g/dL Hct (36.0-46.0) % MCV (80-95) fL MCH (27.0-33.0) pg MCHC (32.0-36.0) % RDW (11.7-14.6) % Plt Count (130-400) 10^3/uL MPV (8.0-11.0) fL Immature Gran % Neutrophils % Lymphocytes % Monocytes % Eosinophils % Basophils % Nucleated RBC % (0.0-0.3) % Absolute Neutrophils (1.2-6.7) 10^3/uL Absolute Lymphocytes (1.2-3.4) 10^3/uL Absolute Monocytes (0.1-0.8) 10^3/uL Absolute Eosinophils (0.0-0.7) 10^3/uL Absolute Basophils (0.0-0.2) 10^3/uL VBG Lactate (0.6-1.4) mmol/L 0.7 Sodium (136-145) mmol/L 141 Potassium (3.5-5.1) mmol/L 4.3 Chloride (98-107) mmol/L 106 Carbon Dioxide (21.0-32.0) mmol/L 25.3 Anion Gap (3-11) mmol/L 9.7 BUN (7-18) mg/dL 14 Creatinine (0.55-1.02) mg/dL 0.9 Est GFR (CKD-EPI 2020) (mL/min/1.73m2) 77.40 Glucose (74-106) mg/dL 94 Calcium (8.5-10.1) mg/dL 8.9 Total Bilirubin (0.2-1.0) mg/dL 0.2 AST (15-37) U/L 17 ALT (14-59) U/L 24 Alkaline Phosphatase (46-116) U/L 88 Total Protein (6.4-8.2) g/dL 7.5 Albumin (3.4-5.0) g/dL 3.7 Urine Color (Yellow) Yellow Urine Clarity (Clear) Clear Urine pH (5-8) 6.0 Ur Specific Maskell (1.005-1.025) 1.010 Urine Protein (Negative) mg/dL Negative Urine Ketones (Negative) mg/dL Negative Urine Blood (Negative) Negative Urine Nitrite (Negative) Negative Urine Bilirubin (Negative) Negative Urine Urobilinogen (Up to 0.2) mg/dL 0.2 Ur Leukocyte Esterase (Negative) Negative Urine Glucose (Negative) mg/dL Negative Range/Units 05/29/22 14:05 WBC (4.4-10.8) 10^3/uL 10.54 RBC (3.93-5.22) 10^6/uL 5.30 H Hgb (11.2-15.7) g/dL 15.8 H Hct (36.0-46.0) % 46.9 H MCV (80-95) fL 89 MCH (27.0-33.0) pg 29.8 MCHC (32.0-36.0) % 33.7 RDW (11.7-14.6) % 13.2 Plt Count (130-400) 10^3/uL 340 MPV (8.0-11.0) fL 8.5 Immature Gran % 0.3 Neutrophils % 63.1 Lymphocytes % 29.1 Monocytes % 3.9 Eosinophils % 2.7 Basophils % 0.9 Nucleated RBC % (0.0-0.3) % 0.0 Absolute Neutrophils (1.2-6.7) 10^3/uL 6.65 Absolute Lymphocytes (1.2-3.4) 10^3/uL 3.07 Absolute Monocytes (0.1-0.8) 10^3/uL 0.41 Absolute Eosinophils (0.0-0.7) 10^3/uL 0.28 Absolute Basophils (0.0-0.2) 10^3/uL 0.10 VBG Lactate (0.6-1.4) mmol/L Sodium (136-145) mmol/L Potassium (3.5-5.1) mmol/L Chloride (98-107) mmol/L Carbon Dioxide (21.0-32.0) mmol/L Anion Gap (3-11) mmol/L BUN (7-18) mg/dL Creatinine (0.55-1.02) mg/dL Est GFR (CKD-EPI 2020) (mL/min/1.73m2) Glucose (74-106) mg/dL Calcium (8.5-10.1) mg/dL Total Bilirubin (0.2-1.0) mg/dL AST (15-37) U/L ALT (14-59) U/L Alkaline Phosphatase (46-116) U/L Total Protein (6.4-8.2) g/dL Albumin (3.4-5.0) g/dL Urine Color (Yellow) Urine Clarity (Clear) Urine pH (5-8) Ur Specific Maskell (1.005-1.025) Urine Protein (Negative) mg/dL Urine Ketones (Negative) mg/dL Urine Blood (Negative) Urine Nitrite (Negative) Urine Bilirubin (Negative) Urine Urobilinogen (Up to 0.2) mg/dL Ur Leukocyte Esterase (Negative) Urine Glucose (Negative) mg/dL
== END 2022-05-29 17:51 | disposition home or self-care (01) ==
PROVIDERS: Emergency Provider Nurse Practitioner Family; PCP Family Medicine
DX: N30.00 Acute cystitis without hematuria (principal); I10 Essential (primary) hypertension
CPT/HCPCS: 36415; 80053; 87077; 96374; 99284; 74176; 81003; 83605; 85025; 87086; 87186; J1885; J3490

== ENCOUNTER 2022-07-01 02:55 | Outpatient (CLI) | payer OTHER, MEDICAID, SELFPAY ==
[2022-07-01 12:29] LABS: Bilirubin Negative (Negative); Blood Trace-intact (Negative); Clarity Clear (Clear); Glucose Negative (Negative); HCT 46.6 % (36.0-46.0); HGB 15.6 g/dL (11.2-15.7); Ketones Negative (Negative); Leukocyte Esterase Negative (Negative); MCH 30.3 pg (27.0-33.0); MCHC 33.5 % (32.0-36.0); MCV 91 fL (80-95); MPV 9.2 fL (8.0-11.0); Nitrite Positive (Negative); Platelet Count 370 10^3/uL (130-400); RBC 5.15 10^6/uL (3.93-5.22); RDW 13.5 % (11.7-14.6); RDW-SD 45.2 fL; Specific Gravity 1.015 (1.005-1.025); Urobilinogen 0.2 mg/dL (Up to 0.2); WBC 8.33 10^3/uL (4.4-10.8)
[2022-07-01 12:39] LABS: Bacteria Many HPF (Negative); C & S Indicated? No/Sq. Contamination; Casts Negative LPF (Negative); Crystals Negative HPF (Negative); Epithelial Cells Moderate HPF (Negative); Mucus Negative (Negative); RBC 0-2 HPF (0-2)
[2022-07-01 12:52] LABS: ALT 27 U/L (14-59); AST 16 U/L (15-37); Albumin 3.5 g/dL (3.4-5.0); Alkaline Phosphatase 88 U/L (46-116); BUN 10 mg/dL (7-18); Bilirubin, Total 0.3 mg/dL (0.2-1.0); CREATININE 0.9 mg/dL (0.55-1.02); Calcium 8.8 mg/dL (8.5-10.1); Chloride 104 mmol/L (98-107); Glucose 85 mg/dL (74-106); Potassium 3.8 mmol/L (3.5-5.1); Sodium 138 mmol/L (136-145); Total Protein 7.6 g/dL (6.4-8.2)
[2022-07-02 09:35] LABS: Hepatitis C Ab w Rflx HCV PCR Negative (Negative)
[2022-07-02 09:51] LABS: HIV-1/2 Ag & Ab Screen Negative (Negative)
== END 2022-07-01 02:56 | disposition home or self-care (01) ==
LOC: LOS 02:55
PROVIDERS: PCP Family Medicine; Visit Provider Family Medicine
DX: Z11.59 Encounter for screening for other viral diseases (principal); N31.9 Neuromuscular dysfunction of bladder, unspecified; E11.9 Type 2 diabetes mellitus without complications; Z87.891 Personal history of nicotine dependence
CPT/HCPCS: 36415; 80053; 85027; 86803; 87389; 81003; 81015; 83036

== ENCOUNTER 2022-07-02 14:03 | Outpatient (REF) | payer OTHER, MEDICAID, SELFPAY ==
[2022-07-02 12:50] LABS: Bilirubin Negative (Negative); Blood Negative (Negative); Clarity Clear (Clear); Glucose Negative (Negative); Ketones Negative (Negative); Leukocyte Esterase Negative (Negative); Nitrite Negative (Negative); Urobilinogen 0.2 mg/dL (Up to 0.2)
== END 2022-07-02 14:04 | disposition home or self-care (01) ==
LOC: LBN 14:03
PROVIDERS: PCP Family Medicine; Visit Provider Family Medicine
DX: R30.0 Dysuria (principal)
CPT/HCPCS: 81003

== ENCOUNTER 2022-07-21 01:16 | Outpatient (CLI) | payer OTHER, MEDICAID, SELFPAY ==
--- NOTE | 2022-07-21 07:30 | DI.CTLCSR_ITS ---
Exam(s) CT CHEST LUNG CANCER SCREEN EXAM: CT CHEST LUNG CANCER SCREEN CLINICAL HISTORY: Screening for lung cancer,former smoker, z87.891 TECHNIQUE: Imaging Protocol: Axial computed tomography images with coronal and sagittal reformatted images were created and reviewed COMPARISON: CT CHEST WITHOUT CONTRAST from 06/02/2016 FINDINGS: Tracheobronchial tree: Patent where visualized. Pulmonary parenchyma: No consolidation or dominant measurable mass. No architectural distortion. Ther e is a triangular 3 mm perifissural nodule associated with the right major fissure. Lung Nodules: None. Mediastinum and Janessa: No dominant adenopathy or fluid collection. The esophagus is unremarkable. Thyroid gland: Unremarkable. Lymph nodes: Unremarkable. Pleura: No effusion or pneumothorax. Heart: The heart is not dilated. No coronary artery calcifications are seen. No pericardial effusion . Aorta: Thoracic aorta non-dilated.Mild atherosclerosis. Upper abdomen: Unremarkable. Soft Tissues: Unremarkable. Bones: Within normal limits. IMPRESSION: No pulmonary nodules. Lung RADS Cat 1 - Negative: No nodules and definitely benign nodules Lung-RADS 1.0 CATEGORIES: Category 0 - Prior chest CT exam(s) being located for comparison. Category 1 - Annual screening in 12 months. No nodules or definitely benign nodules. Category 2 - Annual screening in 12 months. Benign appearance. Nodules with low likelihood of becomin g active cancer. Category 3 - 6-month follow-up. Probably benign. Short-term follow-up suggested. Nodules with low lik elihood of becoming active cancer. Category 4A - 3-month follow-up and CT/PET if >8 mm in size. Suspicious finding. Findings which requi re additional testing. Category 4B - Findings which require additional testing and tissue sampling. Suspicious finding. Category 4X - Category 3 or 4 nodules with additional features or imaging findings that increases the suspicion of malignancy. Modifier S- Potentially clinically significant finding. (Non lung cancer) RADIATION DOSE DELIVERED: 73.28mGy.cm Total DLP 73.28mGy.cmTotal DLP DATA REPOSITORY: All CT scans at this facility are submitted to the National Radiology Data Registry (NRDR) Dose Index Registry (DIR) with the [employer] (ACR). RADIATION OPTIMIZATION: All CT scans at this facility use at least one of these dose optimization te chniques: automated exposure control; mA and/or kV adjustment per patient size (includes targeted exa ms where dose is matched to clinical indication); or iterative reconstruction.
--- NOTE | 2022-07-21 12:36 | DI.MAMMO_ITS ---
Exam(s) MAMMO SCREENING EXAM: MAMMO SCREENING CLINICAL HISTORY: screening,z12.39 TECHNIQUE: Bilateral full field digital CC and MLO mammographic images were obtained with 3D tomosyn thesis and utilizing computer aided detection (CAD). COMPARISON: Available for comparison. FINDINGS: Masses/Architectural Distortion: None seen. Microcalcifications: No suspicious pleomorphic-type are seen. Skin Thickening/Nipple Retraction: None. IMPRESSION: 1. No significant interval change with no specific features of malignancy noted. 2. Unless there is more urgent need, screening mammography is recommended, as per [employer] guidelines. BI-RADS Category 1 - Negative Breast Density - Category B - Scattered areas of fibroglandular density Breast density category C or D implies that the patient has dense breast tissue. Dense breast tissue is very common and is not abnormal but dense breast tissue can make it harder to find cancer on a ma mmogram. Also, dense breast tissue may increase their breast cancer risk. This information about the result of the mammogram report was provided to the patient to raise their awareness. Use this report when you speak with the patient about their risks for breast cancer, which includes their family hist ory. At that time, you may recommend for more screening tests (Ultrasound or MRI) as they might be us eful based on their risk. A negative radiographic report should not delay biopsy if a dominant or clinically suspicious mass is present. Up to ten percent of cancers are not identified on mammography. A negative report may reinforce clinical impression. Adenosis and dense breasts may obscure an underlying neoplasm. False positive reports average 6 to 10%. Patient will receive a letter notifying them of these results.
== END 2022-07-21 01:36 ==
LOC: DI 01:16
PROVIDERS: PCP Family Medicine; Visit Provider Family Medicine
DX: Z12.31 Encounter for screening mammogram for malignant neoplasm of breast (principal); Z87.891 Personal history of nicotine dependence; Z12.2 Encounter for screening for malignant neoplasm of respiratory organs
CPT/HCPCS: 71271; 77063; 77067

== ENCOUNTER 2022-08-04 13:06 | Outpatient (REF) | payer OTHER, MEDICAID, SELFPAY | END 2022-08-04 13:07 | disposition home or self-care (01) | LOC: LBN 13:06 | PROVIDERS: PCP Family Medicine; Visit Provider Urology | DX: N31.9 Neuromuscular dysfunction of bladder, unspecified (principal); R31.9 Hematuria, unspecified | CPT/HCPCS: 87077; 87086; 87186 ==

== ENCOUNTER → 2022-08-04 13:40 | Outpatient (BNVA) | payer OTHER, MEDICAID, SELFPAY | PROVIDERS: PCP Family Medicine; Referring Provider Family Medicine; Visit Provider Urology | DX: R31.9 Hematuria, unspecified (principal); N31.9 Neuromuscular dysfunction of bladder, unspecified; Q05.9 Spina bifida, unspecified | CPT/HCPCS: 81003; 99214 ==

== ENCOUNTER 2022-08-17 07:43 | Day surgery (SDC) | payer OTHER, MEDICAID, SELFPAY ==
[2022-08-17] VITALS (8 sets, daily range): BP systolic 104–125; BP diastolic 52–75; PULSE 58–72; RESP 10–16; TEMP 36.3–36.7; O2SAT 95–99; BMI 33.0
[2022-08-17] MEDS: Lactated Ringers 1,000 ML 80 ML IV (09:05)
--- NOTE | 2022-08-17 09:44 | W.PM.HP.N ---
Date of service: 08/17/22 Time of Service: 09:45 Assessment and Plan Assessment and plan (1) Gross hematuria: Status: Acute Assessment and plan: We will complete her hematuria work-up with a cystoscopy. We will be prepared to take biopsies or resect any abnormality that we identify. History of Present Illness History of Present Illness Chief Complaint: Gross hematuria Narrative: This is a 52-year-old woman who has a history of a neurogenic bladder related to spina bifida. She performs CIC to keep her volumes under 500 cc. She has had recurrent episodes of UTI along with recurrent episodes of gross hematuria. Her most recent positive urine culture grew E. coli which was pansensitive. She had a normal CT of the abdomen and pelvis (with and without contrast) less than 3 months ago. She is still on antibiotics for her most recent bacteriuria. She has not seen gross hematuria recently. She does have debris in the urine and right flank pain. She presents for cystoscopy and possible TUR bladder lesion. Review of Systems Narrative: No fevers or chills No vision change or dysphasia No diabetes or thyroid Asthma. No hemoptysis No chest pain or palpitations No nausea, vomiting, hepatitis, ulcers, jaundice No seizures or strokes No bleeding disorders or anemia No gout PFSH All Active Problems (Updated 08/17/22 @ 09:52 by Candido Kasper MD) Gross hematuria (Acute) Encounter for HCV screening test for high risk patient (Acute) Screening for HIV (human immunodeficiency virus) (Acute) Pre-diabetes (Acute) Encounter for screening colonoscopy (Acute) Fall (Acute) Rotator cuff tear (Acute) Angioedema (Acute 12/03/14) Depressive disorder (Acute) Vaginal atrophy (Chronic 10/19/17) Neurogenic bladder (Chronic) CATHETERIZES EVERY 2-4 HOURS neurogenic colon Hyperlipidemia (Chronic) unable to tolerate statins Hematuria (Chronic 09/17/16) [facility] [place] Chronic cough (Chronic 03/25/15) Asthma (Chronic) Medical History Adhesive capsulitis of left shoulder Advanced care planning/counseling discussion Allergic rhinitis due to pollen (07/08/15) Asthma Bursitis of left shoulder Calcific tendinitis of left shoulder Magda albicans infection Cellulitis Cellulitis of chin Cellulitis of chin Chronic cough Chronic external ear infection (08/28/13) Contusion Depressive disorder Duodenitis 05/03/15- DR. RUIZ (PEPTIC) Elevated lipase 04/23/15 Epigastric pain 04/11/15 Epigastric pain (04/11/15) Episodic mood disorder Esophageal yeast infection Fatigue 01/06/12 Fatigue (01/06/12) GERD (gastroesophageal reflux disease) Giant hives 12/03/14 Hypertension Increased serum lipase level (04/23/15) Laceration Lung nodule < 6cm on CT 12/03/15 f/u in 8 mos--f/u neg for nodules 05/22 Nausea with vomiting, unspecified 04/23/15 Neurogenic bladder Piriformis muscle pain 06/25/15 Piriformis muscle pain (06/25/15) PND (post-nasal drip) Rash and nonspecific skin eruption (12/11/14) Rectal bleeding 07/30/15 Rectal hemorrhage COLONOSCOPY: INFLAMED SIGMOID, BX NEG; NEG STOOL CULTURE; NEG LACTOFERRIN Rectal hemorrhage (07/30/15) Shoulder pain, left Slow transit constipation Smoker Smoker Smoking Spina bifida, lumbar region TETHERED CORD Cold left lower leg Talipes equinovarus LOWER LEFT LEG SMALL AND COLD; HAS BEEN SURGICALLY CORRECTED Tendinitis of long head of biceps brachii of left shoulder Tick bite Unspecified episodic mood disorder Urinary reflux Urolithiasis Urolithiasis (08/06/16) Vaginitis Vesico-ureteric reflux Vesicoureteric reflux S/P VALVE REPLACEMENT Visit for wound check Surgical History BIOPSYS CLUB FOOT RELEASE LEFT [place] [facility] [place] surgical procedure s/p valve replacement to repair vesicuoureteral reflux History of bilateral ligation of fallopian tubes (12/13/13) History of bilateral tubal ligation 12/13/13 History of oophorectomy, unilateral 12/13/13 right History of surgical procedure History of unilateral oophorectomy (12/13/13) Hysterectomy, Laproscopic (~1997) prolapsed uterus Ligation of fallopian tube (~1997) Oophrectomy, Right PROCEDURES VESICULOURETERAL REFLUX S/P VALVE EPLACEMENT; 08/06/16 CYSTOSCOPY;B/L RETROGRADE PYELOGRAM;B/L FLEXIBLE URETEROSCOPY S/P laparoscopic hysterectomy 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 Maternal Grandmother Diabetes Hyperlipidemia Stroke Breast cancer Paternal Grandmother Essential hypertension Diabetes Hyperlipidemia Stroke Cancer Brother Spine degeneration Asthma Sister Cervical cancer Son Asthma Social History (Updated 06/30/22 @ 15:51 by Gavi Baltazar) Smoking/Tobacco Use Status: Former Tobacco Use tobacco type: cigarettes Quit Date: 03/08/19 Tobacco: How many years used: 25 Second Hand Exposure: Yes Smoking risk assessment performed?: Yes Alcohol Intake: never Drug use: Never Substance use type: does not use Caregiver/Support person: No Household members: none Housing: house Communication Needs: None Do you need help understanding health information?: Never Pets and animals: Yes Pets and animals: cat(s), dog(s) and other Details: perla Sexually active: No Do you think of yourself as: straight/heterosexual Current gender identity: female What is your relationship status?: never How often do you talk on the phone with friends or family?: three or more times per week How often do you get together with friends or relatives?: three or more times per week How often do you attend nondenominational or congregation services?: decline to answer Do you belong to any clubs or organized social groups?: no Panel score (0-1 are the most socially isolated patients): 1 What type of physical activity do you participate in: walking Duration: > 90 minutes/day Frequency: daily Mitzi/Mandaeism: None Special mitzi needs: No Seatbelt use: always Helmet use: No Drive intox or ride w/intox company truck driver: No Do you feel safe at home: Yes Do you feel safe in your relationship?: Yes Meds Allergies and Home Medications Allergies Allergy/AdvReac Type Severity Reaction Status Date / Time Beef Containing Products Allergy Severe Verified 08/17/22 08:37 cheese Allergy Severe Verified 08/17/22 08:37 egg Allergy Severe Verified 08/17/22 08:37 fluticasone propionate Allergy Severe Anaphylaxsi Verified 08/17/22 08:40 [From Advair Diskus] s latex Allergy Severe HIVES/SOB Verified 08/17/22 08:40 Pork/Porcine Containing Allergy Severe Verified 08/17/22 08:40 Products Sulfa (Sulfonamide Allergy Severe HIVES/VOMIT Verified 08/17/22 08:40 Antibiotics) ING bacitracin Allergy Intermediate RASH Verified 08/17/22 08:40 [From Triple Antibiotic] budesonide [From Symbicort] Allergy Intermediate Hives Verified 08/17/22 08:40 cat dander Allergy Intermediate Verified 08/17/22 08:40 colistimethate sodium Allergy Intermediate RASH Verified 08/17/22 08:40 [From Triple Antibiotic] dog dander Allergy Intermediate Verified 08/17/22 08:40 famotidine Allergy Intermediate Facial Verified 08/17/22 08:40 swelling formoterol fumarate Allergy Intermediate Hives Verified 08/17/22 08:40 [From Symbicort] gemfibrozil Allergy Intermediate Skin Rash Verified 08/17/22 08:40 gramicidin D Allergy Intermediate RASH Verified 08/17/22 08:40 [From Triple Antibiotic] neomycin sulfate Allergy Intermediate RASH Verified 08/17/22 08:40 [From Triple Antibiotic] polymyxin B Allergy Intermediate RASH Verified 08/17/22 08:40 [From Triple Antibiotic] pramoxine HCl Allergy Intermediate RASH Verified 08/17/22 08:40 [From Triple Antibiotic] ranitidine Allergy Intermediate Verified 08/17/22 08:40 salmeterol xinafoate Allergy Intermediate Hives Verified 08/17/22 08:40 [From Advair Diskus] ciprofloxacin Allergy Unknown Skin Rash Verified 08/17/22 08:40 doxycycline Allergy Unknown Skin Rash Verified 08/17/22 08:40 ezetimibe [Ezetimibe] Allergy Unknown SKIN RASH Verified 08/17/22 08:40 black pepper AdvReac Severe hives Verified 08/17/22 08:40 atorvastatin AdvReac Intermediate Diarrhea Verified 08/17/22 08:40 fenofibrate AdvReac Intermediate YEAST Verified 08/17/22 08:40 INFECTION/COUGH Fish Containing Products AdvReac Intermediate Skin Rash Verified 08/17/22 08:40 morphine AdvReac Intermediate NAUSEA AND Verified 08/17/22 08:40 VOMITING niacin AdvReac Intermediate Chest pain Verified 08/17/22 08:40 omeprazole AdvReac Intermediate Chest Pain Verified 08/17/22 08:40 tramadol AdvReac Intermediate VOMITING Verified 08/17/22 08:40 azithromycin AdvReac Unknown DIARRHEA Verified 08/17/22 08:40 influenza virus vaccine, AdvReac Unknown PNEUMONIA Verified 08/17/22 08:40 specific FOR 7 MONTHS. [id number] Reductase AdvReac Unknown Hives, Verified 08/17/22 08:40 Inhibitor vomiting [Lrodynf-Bqd-Sep Reductase Inhibitor] oxybutynin AdvReac swelling, Verified 08/17/22 08:40 headache, backaches. TREES Allergy Intermediate Uncoded 08/14/22 13:46 Home Medications Medication Instructions Recorded Confirmed Type sennosides 8.6 mg tablet (Senokot) 1 ea PO PRN PRN 08/04/16 08/17/22 History nebulizers (AeroEclipse II #1 ea 10/19/16 08/14/22 History Nebulizer) leukocyte test (Azo Test Strips) #3 ea 06/27/19 08/14/22 Rx epinephrine 0.3 mg/0.3 mL 0.3 mg (0.3 mL) IM ONCE PRN 05/27/21 08/17/22 Rx injection, auto-injector (EpiPen bronchodilation #2 pens 2-Raji) tiotropium bromide 2.5 2 puff inhalation DAILY #12 grams 02/23/22 08/17/22 Rx mcg/actuation mist for inhalation (Spiriva Respimat) ibuprofen 600 mg tablet 600 mg PO Q6H PRN #30 tab-caps 03/24/22 08/17/22 Rx albuterol sulfate 2.5 mg/3 mL 2.5 mg (3 mL) inhalation BID PRN 04/20/22 08/17/22 Rx (0.083 %) solution for nebulization bronchospasm #90 mL ketorolac 10 mg tablet 10 mg PO Q8H PRN PRN pain #14 tabs 05/25/22 08/17/22 Rx loratadine 10 mg tablet 20 mg PO HS #180 tabs 05/25/22 08/17/22 Rx fluticasone furoate 200 1 inh inhalation DAILY #180 ea 06/30/22 08/17/22 Rx mcg-vilanterol 25 mcg/dose inhalation powder (Breo Ellipta) levalbuterol tartrate 45 2 inh inhalation Q6H PRN shortness 06/30/22 08/17/22 Rx mcg/actuation aerosol inhaler of breath or wheezing #15 grams catheter 12 Fr (Bard Coude Tip #60 ea 07/01/22 08/14/22 Rx Catheter) montelukast 10 mg tablet 10 mg PO DAILY #90 tab-caps 07/01/22 08/17/22 Rx (Singulair) albuterol sulfate 90 mcg/actuation 2 puff inhalation Q6H PRN 07/02/22 08/17/22 Rx aerosol inhaler (Ventolin HFA) shortness of breath or wheezing #8.5 grams cephalexin 250 mg tablet 250 mg PO DAILY #14 tabs 08/07/22 08/17/22 Rx Exam Const General: cooperative Resp Effort & Inspection: normal respiratory effort Auscultation: diminished lung sounds Cardio Rate: regular rate Rhythm: regular rhythm GI Palpation: soft Neuro General: patient alert, patient awake and patient oriented x3 Results Last Vital Signs Temp 36.5 C 08/17/22 08:47 Pulse 72 08/17/22 08:47 Resp 16 08/17/22 08:47 BP 124/71 08/17/22 08:47 Pulse Ox 98 08/17/22 08:47 Time Spent Time spent with Patient: <40 minutes Time was spent: other
--- NOTE | 2022-08-17 09:45 | W.ANESPRE ---
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 Candido Kasper MD Meds Allergies and Home Medications Allergies Allergy/AdvReac Type Severity Reaction Status Date / Time Beef Containing Products Allergy Severe Verified 08/17/22 08:37 cheese Allergy Severe Verified 08/17/22 08:37 egg Allergy Severe Verified 08/17/22 08:37 fluticasone propionate Allergy Severe Anaphylaxsi Verified 08/17/22 08:40 [From Advair Diskus] s latex Allergy Severe HIVES/SOB Verified 08/17/22 08:40 Pork/Porcine Containing Allergy Severe Verified 08/17/22 08:40 Products Sulfa (Sulfonamide Allergy Severe HIVES/VOMIT Verified 08/17/22 08:40 Antibiotics) ING bacitracin Allergy Intermediate RASH Verified 08/17/22 08:40 [From Triple Antibiotic] budesonide [From Symbicort] Allergy Intermediate Hives Verified 08/17/22 08:40 cat dander Allergy Intermediate Verified 08/17/22 08:40 colistimethate sodium Allergy Intermediate RASH Verified 08/17/22 08:40 [From Triple Antibiotic] dog dander Allergy Intermediate Verified 08/17/22 08:40 famotidine Allergy Intermediate Facial Verified 08/17/22 08:40 swelling formoterol fumarate Allergy Intermediate Hives Verified 08/17/22 08:40 [From Symbicort] gemfibrozil Allergy Intermediate Skin Rash Verified 08/17/22 08:40 gramicidin D Allergy Intermediate RASH Verified 08/17/22 08:40 [From Triple Antibiotic] neomycin sulfate Allergy Intermediate RASH Verified 08/17/22 08:40 [From Triple Antibiotic] polymyxin B Allergy Intermediate RASH Verified 08/17/22 08:40 [From Triple Antibiotic] pramoxine HCl Allergy Intermediate RASH Verified 08/17/22 08:40 [From Triple Antibiotic] ranitidine Allergy Intermediate Verified 08/17/22 08:40 salmeterol xinafoate Allergy Intermediate Hives Verified 08/17/22 08:40 [From Advair Diskus] ciprofloxacin Allergy Unknown Skin Rash Verified 08/17/22 08:40 doxycycline Allergy Unknown Skin Rash Verified 08/17/22 08:40 ezetimibe [Ezetimibe] Allergy Unknown SKIN RASH Verified 08/17/22 08:40 black pepper AdvReac Severe hives Verified 08/17/22 08:40 atorvastatin AdvReac Intermediate Diarrhea Verified 08/17/22 08:40 fenofibrate AdvReac Intermediate YEAST Verified 08/17/22 08:40 INFECTION/COUGH Fish Containing Products AdvReac Intermediate Skin Rash Verified 08/17/22 08:40 morphine AdvReac Intermediate NAUSEA AND Verified 08/17/22 08:40 VOMITING niacin AdvReac Intermediate Chest pain Verified 08/17/22 08:40 omeprazole AdvReac Intermediate Chest Pain Verified 08/17/22 08:40 tramadol AdvReac Intermediate VOMITING Verified 08/17/22 08:40 azithromycin AdvReac Unknown DIARRHEA Verified 08/17/22 08:40 influenza virus vaccine, AdvReac Unknown PNEUMONIA Verified 08/17/22 08:40 specific FOR 7 MONTHS. Xklsoza-ROY-JmN Reductase AdvReac Unknown Hives, Verified 08/17/22 08:40 Inhibitor vomiting [Txclebd-Fai-Nla Reductase Inhibitor] oxybutynin AdvReac swelling, Verified 08/17/22 08:40 headache, backaches. TREES Allergy Intermediate Uncoded 08/14/22 13:46 Home Medication Medication Instructions Recorded sennosides 8.6 mg tablet (Senokot) 1 ea PO PRN PRN 08/04/16 nebulizers (AeroEclipse II #1 ea 10/19/16 Nebulizer) leukocyte test (Azo Test Strips) #3 ea 06/27/19 epinephrine 0.3 mg/0.3 mL 0.3 mg (0.3 mL) IM ONCE PRN 05/27/21 injection, auto-injector (EpiPen bronchodilation #2 pens 2-Raji) tiotropium bromide 2.5 2 puff inhalation DAILY #12 grams 02/23/22 mcg/actuation mist for inhalation (Spiriva Respimat) ibuprofen 600 mg tablet 600 mg PO Q6H PRN #30 tab-caps 03/24/22 albuterol sulfate 2.5 mg/3 mL 2.5 mg (3 mL) inhalation BID PRN 04/20/22 (0.083 %) solution for nebulization bronchospasm #90 mL ketorolac 10 mg tablet 10 mg PO Q8H PRN PRN pain #14 tabs 05/25/22 loratadine 10 mg tablet 20 mg PO HS #180 tabs 05/25/22 fluticasone furoate 200 1 inh inhalation DAILY #180 ea 06/30/22 mcg-vilanterol 25 mcg/dose inhalation powder (Breo Ellipta) levalbuterol tartrate 45 2 inh inhalation Q6H PRN shortness 06/30/22 mcg/actuation aerosol inhaler of breath or wheezing #15 grams catheter 12 Fr (Bard Coude Tip #60 ea 07/01/22 Catheter) montelukast 10 mg tablet 10 mg PO DAILY #90 tab-caps 07/01/22 (Singulair) albuterol sulfate 90 mcg/actuation 2 puff inhalation Q6H PRN 07/02/22 aerosol inhaler (Ventolin HFA) shortness of breath or wheezing #8.5 grams cephalexin 250 mg tablet 250 mg PO DAILY #14 tabs 08/07/22 Current Visit Medications: Current Medications Generic Name Dose Route Start Last Admin Trade Name Freq PRN Reason Stop Dose Admin Ringer's Solution 1,000 mls @ 80 mls/hr 08/17/22 06:00 08/17/22 09:05 IV 08/17/22 23:59 80 mls/hr INFUSION ANA Administration Gentamicin Sulfate 120 mg/ 103 mls @ 206 mls/hr 08/17/22 06:00 Sodium Chloride IVPB 08/17/22 16:00 PREOP ANA IV Miscellaneous Supplies 1 each 08/17/22 06:00 Iv Access IV 08/17/22 23:59 DIRECTED ANA Sodium Chloride 0 ml 08/17/22 06:00 Normal Saline Flush 10 Ml Syr IV 08/17/22 23:59 PRN PRN Sodium Chloride 0 ml 08/17/22 06:00 Normal Saline 10 Ml Vial IJ 08/17/22 23:59 DIRECTED PRN Sterile Water 0 ml 08/17/22 06:00 Water,Injection,Sterile 10 Ml Vial IJ 08/17/22 23:59 DIRECTED PRN PFSH Active Problems Active Problems: Problem Status Onset Code Encounter for HCV screening test for high risk patient Z11.59, Z91.89 Screening for HIV (human immunodeficiency virus) Z11.4 Pre-diabetes R73.03 Encounter for screening colonoscopy Z12.11 Fall W19.XXXA Rotator cuff tear M75.100 Angioedema 12/03/14 T78.3XXA Depressive disorder F32.9 Vaginal atrophy 10/19/17 N95.2 Neurogenic bladder N31.9 Hyperlipidemia E78.5 Hematuria 09/17/16 R31.9 Chronic cough 03/25/15 R05 Asthma J45.909 Medical History Medical History Adhesive capsulitis of left shoulder Advanced care planning/counseling discussion Allergic rhinitis due to pollen (07/08/15) Asthma Bursitis of left shoulder Calcific tendinitis of left shoulder Magda albicans infection Cellulitis Cellulitis of chin Cellulitis of chin Chronic cough Chronic external ear infection (08/28/13) Contusion Depressive disorder Duodenitis 05/03/15- DR. RUIZ (PEPTIC) Elevated lipase 04/23/15 Epigastric pain 04/11/15 Epigastric pain (04/11/15) Episodic mood disorder Esophageal yeast infection Fatigue 01/06/12 Fatigue (01/06/12) GERD (gastroesophageal reflux disease) Giant hives 12/03/14 Hypertension Increased serum lipase level (04/23/15) Laceration Lung nodule < 6cm on CT 12/03/15 f/u in 8 mos--f/u neg for nodules 05/22 Nausea with vomiting, unspecified 04/23/15 Neurogenic bladder Piriformis muscle pain 06/25/15 Piriformis muscle pain (06/25/15) PND (post-nasal drip) Rash and nonspecific skin eruption (12/11/14) Rectal bleeding 07/30/15 Rectal hemorrhage COLONOSCOPY: INFLAMED SIGMOID, BX NEG; NEG STOOL CULTURE; NEG LACTOFERRIN Rectal hemorrhage (07/30/15) Shoulder pain, left Slow transit constipation Smoker Smoker Smoking Spina bifida, lumbar region TETHERED CORD Cold left lower leg Talipes equinovarus LOWER LEFT LEG SMALL AND COLD; HAS BEEN SURGICALLY CORRECTED Tendinitis of long head of biceps brachii of left shoulder Tick bite Unspecified episodic mood disorder Urinary reflux Urolithiasis Urolithiasis (08/06/16) Vaginitis Vesico-ureteric reflux Vesicoureteric reflux S/P VALVE REPLACEMENT Visit for wound check Medical History Comments:: pt reports outer body experience 20+ years ago Surgical History Surgical History BIOPSYS CLUB FOOT RELEASE LEFT Colonoscopy - MAC H/O surgical procedure s/p valve replacement to repair vesicuoureteral reflux History of bilateral ligation of fallopian tubes (12/13/13) History of bilateral tubal ligation 12/13/13 History of oophorectomy, unilateral 12/13/13 right History of surgical procedure History of unilateral oophorectomy (12/13/13) Hysterectomy, Laproscopic (~1997) prolapsed uterus Ligation of fallopian tube (~1997) Oophrectomy, Right PROCEDURES VESICULOURETERAL REFLUX S/P VALVE EPLACEMENT; 08/06/16 CYSTOSCOPY;B/L RETROGRADE PYELOGRAM;B/L FLEXIBLE URETEROSCOPY S/P laparoscopic hysterectomy 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 post correction of congenital talipes equinovarus at Status post laparoscopic hysterectomy Tobacco Smoking/Tobacco Use Status: Former Tobacco Use Passive smoking exposure: Yes Second hand exposure: Yes Alcohol Alcohol Intake: never Substance Use Substance use: Never Substance use type: does not use Vital Signs and Lab Results Vital Signs Most Recent Vital Signs in EMR: Most Recent Vital Signs Temp Pulse Resp BP Pulse Ox 36.5 C 72 16 124/71 98 08/17/22 08:47 08/17/22 08:47 08/17/22 08:47 08/17/22 08:47 08/17/22 08:47 Lab Results Blood Type / Crossmatch: No Data to Display Complete Blood Count: No Data to Display Complete Metabolic Panel: No Data to Display Liver Function Panel: No Data to Display Coagulation Panel: No Data to Display Cardiac Panel: No Data to Display Arterial Blood Gas: No Data to Display Venous Blood Gas: No Data to Display Pancreas Panel: No Data to Display Thyroid Panel: No Data to Display Infectious Disease: No Data to Display Blood Cultures: No Data to Display Toxicology Panel: No Data to Display Panel: No Data to Display Imaging and Studies Imaging and Studies Study information below may be from another EMR and interpreted by another provider. Please see original notes in EMR for more complete details. Stress Test Summary: Patient Name: JASON #: [id number]: DI Ordering Provider: MELANIE CALHOUN M.D., DCAccount #: [id number]: REG CLI Primary Care Provider: MELANIE CALHOUN M.D., DCDate of Exam: 07/11/14Sex: F : 1970Age: 44 Exam(s) [id number] NM:MPI Resting & Stress GRP *[facility]* *[facility]* [address] [place] [address] Myocardial Perfusion Imaging - SPECT Orestes protocol Date of study: 07/11/2014 (Report amended ) *PATIENT PRESENTATION* Height: 149.9cm (59in ) Blood Pressure: Weight: 75kg (165lb ) BSA: 1.8m^2 Ordering physician: Vineet Fox MD Impressions: - The patient did not experience any chest pain during the stress test. - The patient's functional exercise capacity was good (10 METS). - The patient's heart rate and blood pressure responded appropriately to stress. - Negative stress test. Summary: 1. Myocardial perfusion imaging: No myocardial perfusion defects noted. 2. The calculated left ventricular ejection fraction after stress: 60%. LV global systolic function is normal. No left ventricular regional motion abnormality. 3. Stress ECG conclusions: The stress ECG is negative. Ross treadmill score: 5. This score predicts a low risk of cardiac events. Indication: 786.50, Appropriate Use Criteria: A (Appropriate). History: REASON FOR VISIT: PT REPORTS ON AND OFF CHEST PAIN FOR THE PAST WEEK AND A HALF. PT REPORTS WAKING UP OUT OF A SOUND SLEEP GASPING FOR AIR, STATES THIS HAS BEEN WITH ASSOCIATED CHEST PAIN THAT SHE DESCRIBES PAIN IN LEFT BREAST THAT RADIATES TO LEFT AXILLA, LEFT SHOULDER AND TOWARDS BACK SHOULDER BLADES PMH: Asthma. Risk factors: Family history of coronary artery disease. Obesity. Dyslipidemia. ALLERGIES: LATEX, SULFA, BACITRACIN, COLISTIMETHATE SODIUM, GEMFIBROZIL, GRAMICIDIN, NEOMYCIN, POLYMYXIN, PROMOXINE, CIPROFLOXACIN, DOXYCYCLINE, EZETIMIBE, ATORVASTATIN, FENOFIBRATE, MORPHINE, NIACIN, STATINS, AZITHROMYCIN, FLU VACCINE, TRAMADOL. MEDICATIONS:ALBUTREROL PRN, IBUPROFEN PRN, LORATINDINE 10MG DAILY, FLUTICASONE 2 PUFF BID, OXYBUTININ 5MG HS, FOLIC ACID 1MG BID, LAMOTIL PRN, VITAMIN C 500MG DAILY. Imaging Technique: Protocol: Orestes protocol. Acquisition: Gated SPECT; 1 day - rest/stress. The patient was imaged in the supine position. Attenuation correction used. Isotope administration: - Rest. Tc[99m]-sestamibi. Dose: 9.7mCi. Injection time: 08:35 AM. Injection to stress time: 00:45. - Stress. Tc[99m]-sestamibi. Dose: 30.6mCi. Injection time: 11:30 AM. 1-2 min before end of exercise Baseline ECG: SINUS RHYTHM. NSR @ 61BPM. T-WAVE INVERSION IN LEAD III. Sinus bradycardia. Nonspecific ST and T wave changes. Stress protocol: + +---+ + Stage HR BP (mmHg) + +---+ + Baseline supine 61 104/78 (87) + +---+ + Baseline standing 73 106/78 (87) + +---+ + Stage I; 1.7mph, 10degrees; 3 min 104 118/76 (90) + +---+ + Stage II; 2.5mph, 12degrees; 3 min 135 132/76 (95) + +---+ + Stage III; 3.4mph, 14degrees; 3 min 158 146/72 (97) + +---+ + Recovery; 1 min 95 160/80 (107) + +---+ + Recovery; 3 min 78 134/76 (95) + +---+ + Recovery; 6 min 83 110/74 (86) + +---+ + * Stress results: Maximal heart rate during stress was 159bpm (90% of maximal predicted heart rate). The maximal predicted heart rate was 177bpm. The rate-pressure product for the peak heart rate and blood pressure was 18030lw Hg/min. Stress ECG: TEST STOPPED AT 7 MINUTES, 47 SECONDS DUE TO PATIENT FATIGUE. APPROXIMATE METS 10.2. NO ECTOPY. NO ANGINA. APPROPRIATE BP RESPONSE. AVERAGE FUNCTIONAL CAPACITY. The stress ECG is negative. Stress ECG change: horizontal depression. Severity: less than 0.5mm. In lead groups: II, III, and aVF. Ross treadmill score: 5. This score predicts a low risk of cardiac events. Myocardial perfusion: Imaging information: gated. The image quality was good. Left ventricular size is normal. No myocardial perfusion defects noted. Ventricular Function (Wall Motion): The calculated left ventricular ejection fraction after stress: 60%. LV global systolic function is normal. No left ventricular regional motion abnormality. Study data: [facility] INFO:[id number] Jh Martinez MD supervised and was readily available during the procedure. This study was interpreted by [facility]. Study status: Routine. Consent: The risks, benefits, and alternatives to the procedure were explained to the patient and informed consent was obtained. Procedure: Initial setup. A baseline ECG was recorded. Surface ECG leads and manual cuff blood pressure measurements were monitored. Heart sounds: Normal. Lung sounds: Normal. Treadmill exercise testing was performed using the Orestes protocol. Study completion: All catheters inserted during the procedure were removed. The patient tolerated the procedure well and was discharged from the lab. Discharge: The patient left the laboratory in stable condition. Birthdate: Patient birthdate: 1970. Sex: Gender: female. Study date: Study date: 11-Jul-2014. Signature Documentation: - The imaging portion of this study was interpreted by Nuclear Assistant Spa Director Jh Martinez MD. - The Stress ECG portion of this study was interpreted by Jh Martinez MD. Electronically signed by Jh Martinez 07/12/2014 08:10 Dictated by: NOBLE BARONE M.D.07/11/14 1500 <Electronically signed by NOBLE BARONE M.D.>07/12/14 1459 Disclaimer: The radiologist is signing only the Nuclear Medicine MPI Imaging exam portion of the report. Transcribed by: Helen Cruz07/12/14 CC: ROBERTA DONG,PhD,JH Echocardiogram Summary: Patient Name: SARAH GOMEZ #: [id number]: MARIBEL Ordering Provider: Melanie Calhoun M.D., DCAccount #: [id number]: [facility] Primary Care Provider: Melanie Calhoun M.D., DCDate of Exam: 05/15/19ex: F Admission Date: 05/15/19 : 1970 Age: 49 Exam(s) a US:US echocardiogram APPROVED REPORT EXAM: Comprehensive 2D, Doppler, and color-flow Echocardiogram Patient Location: Out-Patient Arabic Professor: Jeannine Ngo RDCS (AE) Indications: Edema,CHF Conclusion Left Ventricle : The left ventricle is normal size. The left ventricular systolic function is normal. There is normal left ventricular wall thickness. There is normal LV segmental wall motion. The left ventricular diastolic function is normal. LVEF is 65-70%. Right Ventricle : The right ventricle is normal size. The right ventricular systolic function is normal. Atria : The left atrium size is normal. The right atrium size is normal. Valves: There are no hemodynamically significant valvular lesions. Great Vessels : The ascending aorta is mildly dilated. IVC is normal in size and collapses >50% with inspiration. There is not enough tricuspid regurgitation to estimate RVSP. There are no prior echocardiographic images available for comparison. Wall motion Left Ventricle The left ventricle is normal size. The left ventricular systolic function is normal. There is normal left ventricular wall thickness. There is normal LV segmental wall motion. The left ventricular diastolic function is normal. LVEF is 65-70%. Right Ventricle The right ventricle is normal size. The right ventricular systolic function is normal. Atria The left atrium size is normal. The right atrium size is normal. Aortic Valve Aortic valve is probably trileaflet. There is no aortic valvular stenosis. No aortic regurgitation is present. Mitral Valve The mitral valve is normal in structure. No evidence of mitral valve stenosis. Trace mitral regurgitation. Tricuspid Valve The tricuspid valve is normal in structure. There is no tricuspid valve stenosis. Trace tricuspid regurgitation. Pulmonic Valve The pulmonary valve is normal in structure. There is no pulmonic valvular stenosis. There is no pulmonic valvular regurgitation. Great Vessels The aortic root is normal in size. The pulmonary artery is normal. The ascending aorta is mildly dilated. IVC is normal in size and collapses >50% with inspiration. There is not enough tricuspid regurgitation to estimate RVSP. Pericardium There is no pericardial effusion. 2D Dimensions IVSD d PLAX 0.82 cm F: 0.6-1.0LV Vol A2C d MOD 68.3 mL LVPW d PLAX 0.86 cm F: 0.6 - 1.0LV Vol A4C d MOD 78.6 mL LVID d PLAX 4.43 cm F: 3.8 - 5.2LA vol/ BSA A2C s A-L23.9 mL/m2 LVDs 3.10 cm F: 2.2 - 3.5LA vol/ BSA A4C s A-L21.5 mL/m2 Ao Root d 2.66 cm F: 2.7 - 3.3LA Vol/ BSA Biplane s A-L 24.5 mL/m2 RA Area A4C13.95 cm2LA Area A4C s MOD 14.85 cm2 RA Vol/ BSA A4C s A-L 21.0 mL/m2LA Area A2C s MOD 14.48 cm2 Ao Asc Diam d 3.19 cm F: 2.3 - 3.1LV EF A4C MOD 60.8 % LV EF Teichholz 57.1 %LV EF A2C MOD 72.5 % LVEF (Colon's)65.99 % F: 54 - 74LV EF Biplane MOD 66.0 % LV Rqtuee28.57 mL F: 46 - 106 LV Volume Index33.08 mL/m2 F: 29 - 61 LV Vol Biplane MOD 73.2 mL FS29.75 % LV Diastology MV E' medial0.098 (>0.07 m/s)E/A Ratio 1.6 LV E/e MED9.15 (<14)MV E Vmax 0.90 (0.4-1.3 m/s) MV E' lateral0.141 (>0.1 m/s)MV A Vmax 0.55 (0.4-1.3 m/s) LV E/e LAT6.35 (<14)MV E/A Ratio 1.55 MV E/E' medial 9.16 MV E/E' lateral6.36 Aortic Valve LVOT Area2.57 cm2AoV Area Vmax1.87 cm2 LVOT Vmax 1.00 m/sAoV Area/ BSA (Vmax)1.07 cm2/m2 LVOT Mean Rodolfo.0.60 m/sAVA Mean Rodolfo.1.50 cm2 LVOT Peak Grad 4.0 mmHgAVA Mean Rodolfo. Index0.86 cm2/m2 LVOT Mean Grad 1.7 mmHg LVOT VTI0.229 m LVOT Diam s 1.80 cm (M/F) 1.5-2.5 AoV Vmax1.37 (0.5-1.3 m/s) Velocity Ratio 0.72 AoV Mean Rodolfo.1.02 m/s AoV Peak Grad7.5 mmHg LVOT SV 58.70 mL AoV Mean Grad4.5 (<5 mmHg) AoV VTI0.324 (0.18-0.25 m) AoV Area VTI1.81 (2.5-4.5 cm2) AoV Area/ BSA (VTI)1.04 cm/m2 Mitral Valve MV DT 164 (160-240 msec) MV PHT47 msec MV Area PHT 4.63 cm2 Pulmonary Valve PV Vmax 0.75 (0.5-1.5 m/s)RVOT Peak Gr.1.27 mmHg PV Peak Grad 2.3 mmHgRVOT Mean Gr.0.75 mmHg PV Mean Grad 1.4 mmHgRVOT VTI0.153 m PV VTI 0.204 mRVOT Vmax 0.56 m/s Tricuspid Valve RA Pressure 3.00 mmHg Ordered By: Melanie Calhoun M.D., LOU CC: Dictated By: Alfonzo Masters M.D. 05/15/19 1552 <Electronically signed by Alfonzo Masters M.D. in OV> 05/16/19 1241 Transcribed By: Alfonzo Masters MD Pulmonary Function Summary: Pulmonary Function Test PATIENT NAME: JASON #: [id number] ADMITTING PROVIDER: OLGA DONG, [facility] SYSTEMCOUNT #: [id number] PRIMARY CARE PROVIDER:MELANIE CALHOUN MD, DC DATE OF ADMIT: 10/24/14 : 1970 PULMONARY FUNCTION TEST REPORT JUNE JASON 1970 DATE OF SERVICE: October 24, 2014 PRIMARY CARE PROVIDER: Melanie Calhoun M.D. INTERPRETATION OF STUDY: Spirometry shows no evidence of obstructive airways disease. No bronchodilator testing was carried out. LUNG VOLUMES: Show no evidence of restriction. DIFFUSION CAPACITY: Normal. AIRWAYS RESISTANCE: Normal. IMPRESSION: Normal pulmonary function study. When this study was compared to previous one from 05/22/10, the patient has a 100 cc decline in FVC and 70 cc decline in FEV1. Overall appears to be a stable pulmonary function study. Clinical correlation therefore recommended. Monique Coats M.D. VJ/ct Anesthesia Assessment and Plan Anesthesia History Personal History: Other Family History: No Family History of Anesthesia Complications Exercise Tolerance Exercise Tolerance: Metabolic Equivalents>4 Pertinent Negatives Pertinent Negatives: No Symptoms of GERD, No Major Cardiovascular Symptoms or Complaints and No Major Pulmonary Symptoms or Complaints Cardiac & Pulmonary Exam Cardiac Exam: Normal S1/S2 Heart Sounds Pulmonary Exam: Clear Bilateral Breath Sounds Implantable Cardiac Device Does patient have a Pacemaker or an ICD?: No Airway Exam Known Difficult Airway: No Mallampati Class: 2 Mouth Opening: Normal (> 3cm) Thyromental Distance: Greater than 3 cm Neck Range of Motion: Full ROM Neck Circumference: Normal Teeth Condition: Normal Dentition ASA Classification ASA Score: ASA 3 Emergency Case?: No NPO Status NPO Status: NPO Clears >2 hours, Solids >8 hours Status Status: Not Relevant due to Medical History Anesthesia Plan Resuscitation Status: Full Code Anesthesia Technique: General Anesthesia Airway Planned: Natural Airway Monitors Used: Standard Monitors
[2022-08-17] MEDS: GENTAMICIN 120 MG in Normal Saline 100 ML 206 MG IVPB (10:25)
[2022-08-17] MEDS: Lidocaine 2% Jelly 6 ML SYR (10:40)
--- NOTE | 2022-08-17 10:43 | BLADDER_PTH ---
PATIENT: JaradJune LOC: [facility] U#:[id number] AGE/SX: 52/F ROOM: RE08/17/[address]: Candido Kasper MD : 1970 BED: DIS: 08/17/2022 SPEC #: [id number] RECD: 08/17/22 12:50 STATUS: ANI RESamaria #: [id number] KENYON: 08/17/22 10:[address]: Candido Kasper DEPT: Surgical Specimen RECD BY: Rosa Mason ENTERED: 08/17/22 12:50 SP TYPE: Bladder OTHR DR: Melanie Calhoun MD, DC Tissues: 1 - BLADDER BIOPSY Procedures: GROSS AND MICRO LEVEL 4 Comments: [id number]
--- NOTE | 2022-08-17 10:54 | W.PM.DSUDISC ---
Date of service: 08/17/22 Time of Service: 10:55 Discharge Plan Disposition Patient Disposition: Home Condition: Stable Discharge Details Reason For Visit: cystoscopy Attending Provider: Candido Kasper Primary Care Provider: Melanie Calhoun Home Meds and New Rx's Prescriptions: No Action epinephrine [EpiPen 2-Raji] 0.3 mg/0.3 mL auto-injector 0.3 mg IM ONCE MDD 1 PRN (Reason: bronchodilation) Qty: 2 0RF fluticasone furoate-vilanterol [Breo Ellipta] 200-25 mcg/dose blister with device 1 inh IH DAILY Qty: 180 4RF levalbuterol tartrate 45 mcg/actuation HFA aerosol inhaler 2 inh IH Q6H PRN (Reason: shortness of breath or wheezing) Qty: 15 12RF (DME) nebulizers [AeroEclipse II Nebulizer] 1 EACH misc 1 ea Miscellaneous TID Qty: 1 Rx Instructions: has home machine, needs to continue (DME) Azo Test Strips Strip See Rx Instructions .ROUTE .MEDSUPPLY Qty: 3 12RF Rx Instructions: As directed Spiriva Respimat 2.5 mcg/actuation mist 2 puff inhalation DAILY Qty: 12 8RF ibuprofen 600 mg tablet 600 mg PO Q6H PRN Qty: 30 6RF Hold Instructions: Home Medication placed on hold at Doctor's office albuterol sulfate 2.5 mg /3 mL (0.083 %) solution for nebulization 2.5 mg Inhalation BID PRN (Reason: bronchospasm) Qty: 90 6RF Rx Instructions: 493.90 and J45.909 ketorolac 10 mg tablet 10 mg PO Q8H PRN PRN (Reason: pain) Qty: 14 0RF Rx Instructions: Do not use NSAIDS (ibuprofen) when using this medication loratadine 10 mg tablet 20 mg PO HS Qty: 180 5RF (DME) Bard Coude Tip Catheter 12 Fr misc 1 ea Miscellaneous 1-2 Qty: 60 12RF Rx Instructions: 14 [place]/6/ 16cm. Dx: R33.9; straight tip w/ no connector montelukast [Singulair] 10 mg tablet 10 mg PO DAILY Qty: 90 12RF albuterol sulfate [Ventolin HFA] 90 mcg/actuation HFA aerosol inhaler 2 puff inhalation Q6H PRN (Reason: shortness of breath or wheezing) Qty: 8.5 4RF cephalexin 250 mg tablet 250 mg PO DAILY Qty: 14 0RF Rx Instructions: start taking once a day only after completing the 500 mg 3x/day prescription sennosides [Senokot] 1 TAB tablet 1 ea PO PRN PRN Discharge Instructions Additional Instructions: Parra to legbag F/U @ 1 week for catheter removal F/U @ 2 weeks for pathology results Activity:: Activity as Tolerated Shower/Bathe:: 24 hours Diet:: As Tolerated Discharge Orders Discharge Orders: Discharge Order (Routine); Ordered 08/17/22 Ordered By: Candido Kasper DS: Diagnosis Discharge Diagnosis (1) Gross hematuria: Status: Acute
[2022-08-17] MEDS: fentaNYL 100 MCG/2 ML VIAL IVP ×2 (10:57→11:12)
--- NOTE | 2022-08-17 10:58 | ROE_ITS ---
Date of service: 08/17/22 Time of Service: 10:58 Operative Note Operative Note DATE OF PROCEDURE: 08/17/22 PRE-OP DIAGNOSIS: Gross hematuria POST-OP DIAGNOSIS: same PROCEDURE: cystoscopy, TUR bladder lesions SURGEON: Candido Kasper ANESTHESIA TYPE: General:No Airway Refer to Anesthesia Record ESTIMATED BLOOD LOSS: 5 PATHOLOGY: other (bladder lesion) COMPLICATIONS: None Patient was transported to: PACU Implants: 16 palauan abarca catheter with 10 cc sterile water in balloon Indications: This is a 52-year-old woman who has a history of a neurogenic bladder due to spina bifida. She performs CIC. She has had recurrent urinary tract infections and has had episodes of gross hematuria. She had a CT scan with and without contrast that showed no renal abnormalities as recently as May of this year. She presents now for cystoscopy to evaluate her lower urinary tract. Findings: Shaggy mucosa just medial to each ureteral orifice Procedure Description: The patient was given preoperative IV gentamicin and brought to the operating room on 08/17/2022. After successful induction of general anesthesia without intubation, she was placed in the dorsal lithotomy position. Her genitalia was prepped and draped. 2% Xylocaine jelly was instilled into the urethra to act as a local anesthetic. A 24 Citizen [place] resectoscope sheath was passed through the urethra into the bladder. The bladder was then inspected with a 30 degree lens in the visual obturator. Both ureteral orifices appeared normal with no blood coming from either side. Just proximal to each ureteral orifice, there was shaggy bladder mucosa. There was a round area of bullous edema in front of the right ureteral orifice The remainder the bladder showed no papillary or nodular lesions. We then utilized a Nearlyweds resectoscope to perform TUR biopsies of the shaggy mucosa. Each of the biopsy sites were cauterized using the coagulation current. The biopsies were collected and sent to pathology for permanent section. Because of the depth of the resection, we elected to place a Abarca catheter. We chose a 16 Citizen [place] Abarca and passed it through the urethra into the bladder. The catheter balloon was inflated with 10 cc of sterile water. The catheter was hooked to gravity drainage. We will remove the catheter in approximately 1 week. The patient tolerated this procedure well with no complications. She was taken to the recovery room in stable condition.
--- NOTE | 2022-08-17 11:38 | W.ANESPOSTOP ---
Postoperative Evaluation Date, Time and Location Date Performed: 08/17/22 Time Performed: 11:38 Patient Location: Day Surgery Unit Vital Signs Most Recent Imported Vital Signs: Most Recent Vital Signs Temp Pulse Resp BP Pulse Ox 36.7 C 60 13 124/52 L 99 08/17/22 11:21 08/17/22 11:21 08/17/22 11:21 08/17/22 11:21 08/17/22 11:21 Pain Score Most Recent Pain Score: Most Recent Pain Score Pain Level 2 08/17/22 11:21 Assessment Mental Status: Awake (Alert & Oriented to Patient Baseline) Airway and Respiratory Function: Patent airway with normal (patient baseline) respiratory exam Cardiovascular Function: Hemodynamically Stable Hydration Status: Adequately Hydrated Nausea & Vomiting: No Nausea or Vomiting Pain: Pain is tolerable per patient Peripheral Nerve Block: Patient did not receive a nerve block
[2022-08-17] MEDS: Phenazopyridine 200 MG TAB PO (11:58)
== END 2022-08-17 12:55 | disposition home or self-care (01) ==
PROVIDERS: PCP Family Medicine; Visit Provider Urology
PROC: 0TBB8ZZ Excision of Bladder, Via Natural or Artificial Opening Endoscopic (ICD-10-PCS; CPT 52204; principal; 2022-08-17 09:30)
DX: N32.89 Other specified disorders of bladder (principal); R31.0 Gross hematuria; Q05.9 Spina bifida, unspecified; N31.8 Other neuromuscular dysfunction of bladder; Z87.440 Personal history of urinary (tract) infections
CPT/HCPCS: 52204; 88305; J1580; J3010

== ENCOUNTER → 2022-08-26 07:47 | Outpatient (BNVA) | payer OTHER, MEDICAID, SELFPAY | PROVIDERS: PCP Family Medicine; Referring Provider Family Medicine; Visit Provider Nurse Practitioner Gerontology | DX: Z46.6 Encounter for fitting and adjustment of urinary device (principal); R31.0 Gross hematuria; N31.9 Neuromuscular dysfunction of bladder, unspecified | CPT/HCPCS: 99211 ==

== ENCOUNTER → 2022-09-01 14:44 | Outpatient (BNVA) | payer OTHER, MEDICAID, SELFPAY | PROVIDERS: PCP Family Medicine; Referring Provider Family Medicine; Visit Provider Urology | DX: N32.89 Other specified disorders of bladder (principal); N31.9 Neuromuscular dysfunction of bladder, unspecified; Z87.440 Personal history of urinary (tract) infections; Q05.9 Spina bifida, unspecified | CPT/HCPCS: 99214 ==

== ENCOUNTER 2022-10-09 | Outpatient (CLI) | payer OTHER, MEDICAID, SELFPAY ==
--- NOTE | 2022-10-09 07:15 | DI.NM_ITS ---
Exam(s) NM DTPA RENOGRAM W LASIX CLINICAL HISTORY: neurogenic bladder, N31.9. COMPARISON: NM NM DTPA RENOGRAM W LASIX from 10/10/[address] RENAL COLIC WO from 05/29/2022 EXAMINATION: Dose: 11.5 mCi Tc-99m DTPA Images: Immediately for 1 minute followed by dynamic for 30 minutes. 25mg Lasix was administered aft er peak uptake in the renal cortex at approximately 12 min. FINDINGS: Time to peak: Right: 2 min (< 5 min normal) Left: 2 min (< 5 min normal) The time activity curve reveals no delay in the washout of either collecting system. No evidence of hydronephrosis. Split renal function: Right: 59 % Left: 41 % IMPRESSION: 1. Split function right 59, left 41 week, similar to prior exams 2. No evidence of hydronephrosis or delayed excretion by either kidney.
[2022-10-09] MEDS: Furosemide 40 MG/4 ML VIAL 25 MG IVP (09:13)
== END 2022-10-09 00:20 ==
LOC: DI
PROVIDERS: PCP Family Medicine; Visit Provider Nurse Practitioner Gerontology
DX: N31.9 Neuromuscular dysfunction of bladder, unspecified (principal)
CPT/HCPCS: 78708; J1940

== ENCOUNTER → 2022-10-16 00:03 | Outpatient (CLI) | payer OTHER, MEDICAID, SELFPAY ==
--- NOTE | 2022-10-16 08:30 | DI.US_ITS ---
Exam(s) US RENAL EXAM: US RENAL CLINICAL HISTORY: monitoring kidneys d/t neurogenic bladder,HEMATURIA,N31.9,R31.9. TECHNIQUE: Renteria scale, color and spectral Doppler were used. COMPARISON: CT CT RENAL COLIC WO from 05/29/2022 FINDINGS: Renal size in cm: Right: 9.5 x 3.8 x 3.5 left: 10.2 x 4.0 x 4.7 Echogenicity: Normal Hydronephrosis: No Cyst or mass: No Nephrolithiasis: No Bladder:Normal . Both ureteral jets were visualized. Prevoid vol:357 Postvoid vol:3 IMPRESSION: Negative renal ultrasound. DATA REPOSITORY:
== END ==
PROVIDERS: PCP Family Medicine; Visit Provider Nurse Practitioner Gerontology
DX: N31.9 Neuromuscular dysfunction of bladder, unspecified (principal); R31.9 Hematuria, unspecified
CPT/HCPCS: 76770

== ENCOUNTER → 2022-10-30 07:44 | Outpatient (BNVA) | payer OTHER, MEDICAID, SELFPAY | PROVIDERS: PCP Family Medicine; Visit Provider Urology | DX: N32.89 Other specified disorders of bladder (principal); N31.9 Neuromuscular dysfunction of bladder, unspecified; R31.9 Hematuria, unspecified; N39.0 Urinary tract infection, site not specified | CPT/HCPCS: 81003; 99214 ==

== ENCOUNTER → 2023-04-30 08:07 | Outpatient (BNVA) | payer OTHER, MEDICAID, SELFPAY | PROVIDERS: PCP Family Medicine; Referring Provider Family Medicine; Visit Provider Urology | DX: N31.9 Neuromuscular dysfunction of bladder, unspecified (principal); R31.9 Hematuria, unspecified; Q05.7 Lumbar spina bifida without hydrocephalus; N13.70 Vesicoureteral-reflux, unspecified; Z87.440 Personal history of urinary (tract) infections | CPT/HCPCS: 76775 ==

== ENCOUNTER 2023-09-23 13:28 | Outpatient (REF) | payer OTHER, MEDICAID, SELFPAY ==
[2023-09-23 14:55] LABS: Bilirubin Negative (Negative); Blood Negative (Negative); Clarity Clear (Clear); Glucose Negative (Negative); Ketones Negative (Negative); Leukocyte Esterase Negative (Negative); Nitrite Negative (Negative); Urobilinogen 0.2 mg/dL (Up to 0.2); pH 5.5 (5-8)
== END 2023-09-23 13:29 | disposition home or self-care (01) ==
LOC: LBN 13:28
PROVIDERS: PCP Family Medicine; Visit Provider Urology
DX: N31.9 Neuromuscular dysfunction of bladder, unspecified (principal)
CPT/HCPCS: 87077; 81003; 87086; 87186

== ENCOUNTER → 2023-10-12 00:53 | Outpatient (CLI) | payer OTHER, MEDICAID, SELFPAY ==
--- NOTE | 2023-10-12 06:45 | DI.NM_ITS ---
Exam(s) NM MAG 3 RENOGRAM W LASIX CLINICAL HISTORY: monitor renal function,neurogenic bladder,vesicoureteral reflux,spina bifid. COMPARISON: NM NM DTPA RENOGRAM W LASIX from 10/09/2022 US POCUS EXAM from 04/30/2023 EXAMINATION: Dose: 10 mCi Tc-99m MAG3 Images: Immediately for 1 minute followed by dynamic for 45 minutes. 25mg Lasix was administered afte r peak uptake in the renal cortex at approximately 12 minutes post-injection of the radiopharmaceutic al. FINDINGS: Time to peak: Right: 2 min (< 5 min normal) Left: 2 min (< 5 min normal) Curve Appearance: Right: T1/2 (Lasix to half-Lasix) min Left: T1/2 (Lasix to half-Lasix) min Split renal function: Right: 58.3 % Left: 41.7 % Time activity curves: There does not appear to be significant delay in washout from either collecting system. Excretion curve slopes appear normal bilaterally. IMPRESSION: 1. No evidence of hydronephrosis or delayed excretion by either kidney. 2. Split renal function as above which is similar to prior studies.
[2023-10-12] MEDS: Furosemide 40 MG/4 ML VIAL 25 MG IVP (10:42)
== END ==
PROVIDERS: PCP Family Medicine; Visit Provider Urology
DX: N31.9 Neuromuscular dysfunction of bladder, unspecified (principal); N13.70 Vesicoureteral-reflux, unspecified; Q05.7 Lumbar spina bifida without hydrocephalus
CPT/HCPCS: 78708; A9540; J1940

== ENCOUNTER 2023-10-18 02:31 | Outpatient (CLI) | payer OTHER, MEDICAID, SELFPAY ==
--- NOTE | 2023-10-18 06:30 | DI.US_ITS ---
Exam(s) US RENAL EXAM: US RENAL CLINICAL HISTORY: ? hydronephrosis,neurogenic bladder, n31.9. TECHNIQUE: Renteria scale, color and spectral Doppler were used. COMPARISON: CT CT ABDOMEN WO/W from 05/07/[address] RENAL COLIC WO from 05/29/2022 US US RENAL from 10/16/2022 NM NM MAG 3 RENOGRAM W LASIX from 10/12/2023 FINDINGS: Renal size in cm: Right: 10.9. Left: 9.3. Echogenicity: Normal. Hydronephrosis: Mild prominence of the left renal pelvis. The left ureteral jet was visualized. Adj acent to the right renal hilum there is a question of a rounded structure. On some of the images the structure has an anechoic appearance. No blood flow is seen internally to suggest a vascular struct ure. Cyst or mass: Please see the above section under hydronephrosis. Nephrolithiasis: No. Other findings: None. Bladder:Normal. Ureteral jets: Right: Visualized and unremarkable. Left: Visualized and unremarkable. Prevoid vol:908 cc Postvoid vol:0 cc Renal color flow: Symmetric and within normal limits. IMPRESSION: 1. Question of a rounded right hilar structure. Differential considerations include extrarenal pelvi s, hydronephrosis, solid pelvic mass. A CT scan or MRI of the kidneys without and with contrast is r ecommended for further evaluation. Unexpected findings DATA REPOSITORY:
== END 2023-10-18 02:51 ==
LOC: DI 02:31
PROVIDERS: PCP Family Medicine; Visit Provider Urology
DX: N31.9 Neuromuscular dysfunction of bladder, unspecified (principal)
CPT/HCPCS: 76770

== ENCOUNTER 2023-11-12 00:09 | Outpatient (CLI) | payer OTHER, MEDICAID, SELFPAY ==
--- NOTE | 2023-11-12 07:00 | DI.MRI_ITS ---
Exam(s) MR ABDOMEN WO/W EXAM: MR ABDOMEN WO/W CLINICAL HISTORY: ? right renal mass on renal US,neurogenic bladder,n31.9 TECHNIQUE: Multiplanar multisequence MRI of the Abdomen was performed. CONTRAST MATERIAL: IV Contrast: 16 mL of Dotarem contrast administered. COMPARISON: CT CT RENAL COLIC WO from 05/29/2022 US US RENAL from 10/18/2023 FINDINGS: Liver: There is no suspicious hepatic mass. The liver measures 16 cm long. Pancreas: Unremarkable. Gallbladder and Bile Ducts: No evidence of cholelithiasis. There is no biliary ductal dilatation. Adrenals: Unremarkable. Kidneys: There is no evidence of obstructive uropathy. There is no evidence of a renal mass. Spleen: Unremarkable. Bowel: The bowel shows no wall thickening or obstruction. Aorta: Unremarkable. No evidence of aneurysm. Soft Tissues: Unremarkable. Bone: Unremarkable. Lymph Nodes: Unremarkable. IMPRESSION: 1. There is no evidence of a renal mass. 2. No acute abdominal process. 3. No evidence of an abdominal mass or adenopathy. DATA REPOSITORY:
[2023-11-12] MEDS: Normal Saline - Diluent 50 ML VIAL 25 ML IJ (08:23)
[2023-11-12] MEDS: Gadoterate meglumine 20 ML VIAL 16 ML IVP (08:25)
== END 2023-11-12 00:29 ==
LOC: DI 00:09
PROVIDERS: PCP Family Medicine; Visit Provider Urology
DX: N31.9 Neuromuscular dysfunction of bladder, unspecified (principal)
CPT/HCPCS: 74183

== ENCOUNTER → 2023-11-18 09:12 | Outpatient (BNVA) | payer OTHER, MEDICAID, SELFPAY | PROVIDERS: PCP Family Medicine; Referring Provider Family Medicine; Visit Provider Urology | DX: N32.89 Other specified disorders of bladder (principal); N28.89 Other specified disorders of kidney and ureter | CPT/HCPCS: 81003; 99213 ==

== ENCOUNTER 2023-11-18 10:06 | Outpatient (REF) | payer OTHER, MEDICAID, SELFPAY | END 2023-11-18 10:07 | disposition home or self-care (01) | LOC: LBN 10:06 | PROVIDERS: PCP Family Medicine; Visit Provider Urology | DX: R73.03 Prediabetes (principal); N32.89 Other specified disorders of bladder; N95.2 Postmenopausal atrophic vaginitis; R31.0 Gross hematuria; B96.29 Other Escherichia coli [E. coli] as the cause of diseases classified elsewhere; R82.89 Other abnormal findings on cytological and histological examination of urine | CPT/HCPCS: 87077; 87086; 87186 ==

== ENCOUNTER 2023-11-26 12:19 | Outpatient (CLI) | payer OTHER, MEDICAID, SELFPAY ==
--- NOTE | 2023-11-26 12:00 | DI.RAD_ITS ---
Exam(s) XR SHOULDER RT COMPLETE 2+V EXAM: XR SHOULDER RT COMPLETE 2+V CLINICAL HISTORY: shoulder pain, right injury, M25.511. TECHNIQUE: 2D digital imaging was performed. Five views. COMPARISON: CR XR SHOULDER LT COMPLETE 2+V from 01/24/2020 FINDINGS: BONES: No acute fracture is present. No bony destructive lesion is seen. JOINTS: No dislocation present. Mild degenerative changes at the AC joint and glenohumeral joint. SOFT TISSUE: Normal. IMPRESSION: No acute abnormality. DATA REPOSITORY: RADIATION DOSE DELIVERED:
== END 2023-11-26 12:39 ==
LOC: DI 12:27
PROVIDERS: PCP Family Medicine; Visit Provider Physician Assistant
DX: M25.511 Pain in right shoulder (principal)
CPT/HCPCS: 73030

== ENCOUNTER 2023-12-20 01:31 | Outpatient (CLI) | payer OTHER, MEDICAID, SELFPAY ==
--- NOTE | 2023-12-20 07:45 | DI.MRI_ITS ---
Exam(s) MR UPPER JOINT RT WO EXAM: MR UPPER JOINT RT WO CLINICAL HISTORY: ? RTC TEAR,rt shoulder pain, m25.511. TECHNIQUE: Multiplanar multisequence MRI was performed. COMPARISON: There are no priors for comparison. FINDINGS: BONES: There is no fracture or contusion pattern. JOINTS: There are mild degenerative changes seen at the acromioclavicular joint. There are degenerat hiren changes seen at the glenohumeral joint with loss of the articular cartilage and joint space narro wing. There is a small amount of fluid in the joint space. TENDONS: Supraspinatus: Unremarkable. Infraspinatus: Unremarkable. Subscapularis: Unremarkable. Teres Minor: Unremarkable. Biceps and Randall: Unremarkable. MUSCLES: Unremarkable. No muscular fatty atrophy. GLENOID LABRUM: There is degeneration of the labrum particularly posteriorly and superiorly. SOFT TISSUES: Unremarkable. LIGAMENTS: Unremarkable. OTHER: Subacromial and subdeltoid bursae are unremarkable. IMPRESSION: 1. No evidence of a rotator cuff tear. 2. 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 3. Degeneration of the glenoid labrum. DATA REPOSITORY:
== END 2023-12-20 01:51 ==
LOC: DI 01:31
PROVIDERS: PCP Family Medicine; Visit Provider Student in an Organized Health Care Education/Training Program
DX: M25.511 Pain in right shoulder (principal)
CPT/HCPCS: 73221

== ENCOUNTER → 2023-12-28 09:33 | Outpatient (BNVA) | payer OTHER, MEDICAID, SELFPAY | PROVIDERS: PCP Family Medicine; Referring Provider Family Medicine; Visit Provider Student in an Organized Health Care Education/Training Program | DX: M94.211 Chondromalacia, right shoulder (principal); S43.431A Superior glenoid labrum lesion of right shoulder, initial encounter; X58.XXXA Exposure to other specified factors, initial encounter | CPT/HCPCS: 99213 ==

== ENCOUNTER 2024-01-13 02:41 | Outpatient (CLI) | payer OTHER, MEDICAID, SELFPAY ==
[2024-01-13] MEDS: methylPREDNISolone ACETATE 80 MG/ML VIAL IM (14:51)
[2024-01-13] MEDS: Bupivacaine 0.5% Pres-Free 10 ML VIAL IJ (14:52)
[2024-01-13] MEDS: Omnipaque 300 MG/ML 10 ML BTL IJ (14:53)
--- NOTE | 2024-01-14 14:53 | W.PROCNOTE ---
Date of service: 01/13/24 Time of Service: 13:20 Procedure Note Date of procedure: 01/13/24 Procedure: Right Shoulder Injection Surgeon/Proceduralist/Physician: Rajesh Yang Procedure Diagnosis: Right Shoulder Pain Procedure Indications: The patient had had persistent right shoulder pain. Noninvasive measures have been tried. To serve as both diagnostic and therapeutic, an injection under fluoroscopy was recommended. The risks of the procedure were discussed with their Orthopedic provider and the patient elected to proceed. Procedure Description: Technique: 2D and real time digital imaging was performed. Contrast Material: Water soluble contrast was utilized. Findings: the Patient was greeted in the fluoroscopy room. The correct side was identified and the consent was reviewed with the patient and was signed. the patient was properly positioned on the fluoroscopy table. The right shoulder was then prepped and draped. The right shoulder injection starting point was identified by the bony landmarks and fluoroscopy. The skin and soft tissues in the tract of the injection were anesthetized with Bupivacaine. A spinal needle was then inserted into the right shoulder at the level of the glenohumeral joint under fluoroscopic guidance. A small amount of Omnipaque solution was injected to confirm intraarticular placement. Once confirmed, the right shoulder was injected with 5cc solution containing 0.5% Bupivacaine and 80mg of Depo-Medrol. A 4x4 and paper tape was placed on the injection site. The patient tolerated the procedure and left the department in good condition. Impression: Successful right shoulder injection.
== END 2024-01-13 03:01 ==
LOC: DI 02:41
PROVIDERS: PCP Family Medicine; Visit Provider Student in an Organized Health Care Education/Training Program
DX: M25.511 Pain in right shoulder (principal)
CPT/HCPCS: 20610; 00123; 76000; J0665; J1010

== ENCOUNTER → 2024-03-21 08:30 | Outpatient (BNVA) | payer MEDICARE, MEDICAID, SELFPAY | PROVIDERS: PCP Family Medicine; Visit Provider Student in an Organized Health Care Education/Training Program | DX: S43.431D Superior glenoid labrum lesion of right shoulder, subsequent encounter (principal); X58.XXXD Exposure to other specified factors, subsequent encounter; M94.211 Chondromalacia, right shoulder | CPT/HCPCS: 99213 ==

== ENCOUNTER 2024-03-21 18:13 | Outpatient (REF) | payer MEDICARE, MEDICAID, SELFPAY ==
[2024-03-21 10:53] LABS: Bilirubin Negative (Negative); Blood Negative (Negative); Clarity Clear (Clear); Glucose Negative (Negative); Ketones Negative (Negative); Leukocyte Esterase Negative (Negative); Nitrite Negative (Negative); Specific Gravity <= 1.005 (1.005-1.025); Urobilinogen 0.2 mg/dL (Up to 0.2)
== END 2024-03-21 18:14 | disposition home or self-care (01) ==
LOC: LBN 18:13
PROVIDERS: PCP Family Medicine; Visit Provider Urology
DX: N31.9 Neuromuscular dysfunction of bladder, unspecified (principal); R10.9 Unspecified abdominal pain; S43.431A Superior glenoid labrum lesion of right shoulder, initial encounter; M94.211 Chondromalacia, right shoulder
CPT/HCPCS: 81003; 87086

== ENCOUNTER 2024-04-16 10:32 | Emergency (ER) | payer MEDICARE, MEDICAID, SELFPAY ==
[2024-04-16 10:38] VITALS: BP 129/79; PULSE 75; RESP 24; TEMP 37.3; O2SAT 91
--- NOTE | 2024-04-16 10:45 | DI.RAD_ITS ---
Exam(s) XR CHEST 2V PA LATERAL EXAM: XR CHEST 2V PA LATERAL CLINICAL HISTORY: Cough, hx asthma TECHNIQUE: 2D digital imaging was performed. Two views. COMPARISON: No exams were available for comparison FINDINGS: HEART: Normal size. Aorta: Not dilated. PULMONARY VASCULATURE: Normal. MEDIASTINUM: Unremarkable. LUNGS: Clear. PLEURAL SPACE: No pleural effusion or pneumothorax. BONE:Unremarkable for age. SOFT TISSUES: Unremarkable. IMPRESSION: No acute abnormality. DATA REPOSITORY: RADIATION DOSE DELIVERED:
--- NOTE | 2024-04-16 11:08 | ED.GENADUL_ITS ---
Discharge Plan Disposition Patient Disposition: Home Condition: Stable Discharge Details Clinical Impression: Pneumonia, Asthma, Hyperlipidemia, Pre-diabetes Primary Care Provider: Melanie Calhoun ED Provider: Marybel Shelby Home Meds and New Rx's Prescriptions: New prednisone 20 mg tablet 40 mg PO DAILY 4 Days Qty: 8 0RF Rx Instructions: Started on day 2 of therapy (04/17/2024) levofloxacin 750 mg tablet 750 mg PO DAILY 5 Days Qty: 5 0RF No Action epinephrine [EpiPen 2-Raji] 0.3 mg/0.3 mL auto-injector 0.3 mg IM ONCE MDD 1 PRN (Reason: bronchodilation) Qty: 2 0RF ibuprofen 600 mg tablet 600 mg PO Q6H PRN Qty: 30 1RF Rx Instructions: use sparingly to protect your kidneys fluticasone propionate 50 mcg/actuation spray,suspension 1 spray intranasal DAILY PRN (Reason: nasal congestion) Qty: 16 8RF Rx Instructions: administer into each nostril (DME) nebulizers [AeroEclipse II Nebulizer] [address] [facility] 1 ea Miscellaneous TID Qty: 1 Rx Instructions: has home machine, needs to continue (DME) Azo Test Strips Strip See Rx Instructions .ROUTE .MEDSUPPLY Qty: 3 12RF Rx Instructions: As directed albuterol sulfate 2.5 mg /3 mL (0.083 %) solution for nebulization 2.5 mg Inhalation BID PRN (Reason: bronchospasm) Qty: 90 6RF Rx Instructions: 493.90 and J45.909 Spiriva Respimat 2.5 mcg/actuation mist 2 puff inhalation DAILY Qty: 12 8RF loratadine 10 mg tablet 20 mg PO HS Qty: 180 5RF montelukast [Singulair] 10 mg tablet 10 mg PO DAILY Qty: 90 12RF (DME) Bard Coude Tip Catheter 12 Fr misc 1 ea Miscellaneous 1-2 Qty: 60 12RF Rx Instructions: 14 australian/6/ 16cm. Dx: R33.9; straight tip w/ no connector fluticasone furoate-vilanterol [Breo Ellipta] 200-25 mcg/dose blister with device 1 inh IH DAILY Qty: 180 4RF levalbuterol tartrate [Xopenex HFA] 45 mcg/actuation HFA aerosol inhaler 2 inh inhalation TID Qty: 15 5RF sennosides [Senokot] 1 TAB tablet 1 ea PO PRN PRN Discharge Instructions Instructions: Pneumonia, Adult (DC) Additional Instructions: You were seen in the emergency department today for evaluation of shortness of breath and productive cough, and were found to have pneumonia and an exacerbation of your asthma. In our department you do full physical examination performed, and had an x-ray that showed the area of pneumonia in your right lung. You received a duo nebulizer treatment as well as your first dose of steroids. You will take a total of 5 days of steroids, and so your next nose needs to be taken tomorrow. You will also be started on an antibiotic, and as we discussed you have numerous allergies and 1 antibiotic that you do not have listed as an allergy is levofloxacin. Please start this medication today, and take this pill daily for the next 5 days. Please take all the antibiotic until it is gone, even if you start to feel better. If you develop an intolerance or symptoms while taking these medications, please contact your primary care doctor immediately to discuss alternative options. Please return to the emergency department if you develop fever chills that do not respond to medications, worsening shortness of breath, or any other symptoms that cause you concern. Thank you for allowing us to be part of your care. HPI General Mode of arrival: ambulatory . Date/Time Provider Initiated Documentation: 04/16/24 10:33 . Limitations to Documentation: no limitations . Information obtained by: patient, family and old records reviewed . HPI Narrative: HPI: This is a 54-year-old female patient presenting for evaluation of shortness of breath and cough. Since Wednesday the patient reports that she has had a runny and stuffy nose, has had a cough productive of yellow sputum, which became blood-streaked this morning. She has a history of asthma, has been using her albuterol both inhaler and nebulizer, as well as her controller medications. States that she has been using Tylenol and ibuprofen as needed for pain associated with coughing. Subjective low-grade fever, no medicines today. The patient reports that she has not had any recent sick contacts and tends to be fairly isolated. She notices worsening of her cough and work of breathing when she exerts herself doing chores. No recent antibiotics or prednisone. Exam: Gen: Awake and alert, in no apparent distress HEENT: Non-icteric sclera Neck: Supple Lungs: No apparent respiratory distress, normal respiratory effort. Diffuse expiratory wheezing appreciated throughout lung calabrese, junky sounding cough appreciated during this provider's exam CV: Appears well perfused, heart with regular rate and rhythm, strong distal pulses Abdomen: Non-distended MSK: Moves 4 extremities without apparent limitation in ROM Skin: Visualized skin without rashes, cyanosis. Neuro: Normal Gait, no obvious focal deficits or facial asymmetry. Speaks in full, clear sentences. Psych: Appropriate for situation. MDM: This is a 54-year-old female patient presenting for evaluation of cough and sputum production. Differential includes but is not limited to viral URI, bronchitis, pneumonia, reactive airway disease exacerbation. She has no history of heart failure nor evidence of fluid overload on physical examination to suggest pulmonary edema, pleural effusion, and no pulmonary findings concerning for pneumothorax. She is tolerating oral intake and I have a lower concern for metabolic and electrolyte derangements or kidney injury. The patient declines viral swab, and as she is on day 5 of illness, she would likely not be a candidate for Paxlovid or Tamiflu even if she was positive for 1 of these findings. I will obtain a chest x-ray, and provide the patient with a dose of prednisone as well as a duo nebulizer treatment. She is reassuringly not hypoxic. ED Course: The patient had significant improvement in her wheezing with the duo nebulizer treatment, and has not had any hypoxia or new oxygen requirement. Independently reviewed the patient's x-ray, and she does have evidence of a right lower lobe pneumonia, and I had an extended discussion with this patient given her numerous allergies to several antibiotics. Ultimately we have decided to trial levofloxacin monotherapy, and I also provided her with the remainder of her prednisone burst. At this time, the patient has had a full medical evaluation and is safe for discharge to home. They are hemodynamically stable, ambulatory, and tolerating PO. They are understanding of the follow-up plan and return precautions. They left our facility without incident. Marybel Shelby MD Related Data Home Medications ?Medication ?Instructions ?Recorded ?Confirmed sennosides 8.6 mg tablet (Senokot) 1 ea PO PRN PRN 08/04/16 03/21/24 nebulizers (AeroEclipse II #1 ea 10/19/16 03/21/24 Nebulizer) leukocyte test (Azo Test Strips) #3 ea 06/27/19 03/21/24 albuterol sulfate 2.5 mg/3 mL 2.5 mg (3 mL) inhalation BID PRN 04/20/22 03/21/24 (0.083 %) solution for nebulization bronchospasm #90 mL tiotropium bromide 2.5 2 puff inhalation DAILY #12 grams 03/04/23 03/21/24 mcg/actuation mist for inhalation (Spiriva Respimat) loratadine 10 mg tablet 20 mg (2 x 10 mg) PO HS #180 tabs 03/31/23 03/21/24 catheter 12 Fr (Bard Coude Tip #60 ea 07/01/23 03/21/24 Catheter) montelukast 10 mg tablet 10 mg PO DAILY #90 tab-caps 07/01/23 03/21/24 (Singulair) Breo Ellipta 200 mcg-25 mcg/dose 1 inh inhalation DAILY #180 ea 07/06/23 03/21/24 powder for inhalation (fluticasone furoate-vilanterol) epinephrine 0.3 mg/0.3 mL 0.3 mg (0.3 mL) IM ONCE PRN 01/31/24 03/21/24 injection, auto-injector (EpiPen bronchodilation #2 pens 2-Raji) fluticasone propionate 50 1 spray intranasal DAILY PRN nasal 01/31/24 03/21/24 mcg/actuation nasal congestion #16 grams spray,suspension ibuprofen 600 mg tablet 600 mg PO Q6H PRN #30 tab-caps 01/31/24 03/21/24 levalbuterol tartrate 45 2 inh inhalation TID #15 grams 04/08/24 mcg/actuation aerosol inhaler (Xopenex HFA) levofloxacin 750 mg tablet 750 mg PO DAILY 5 days #5 tabs 04/16/24 prednisone 20 mg tablet 40 mg (2 x 20 mg) PO DAILY 4 days 04/16/24 #8 tabs Previous Rx's ?Medication ?Instructions ?Recorded leukocyte test (Azo Test Strips) #3 ea 06/27/19 albuterol sulfate 2.5 mg/3 mL 2.5 mg (3 mL) inhalation BID PRN 04/20/22 (0.083 %) solution for nebulization bronchospasm #90 mL tiotropium bromide 2.5 2 puff inhalation DAILY #12 grams 03/04/23 mcg/actuation mist for inhalation (Spiriva Respimat) loratadine 10 mg tablet 20 mg (2 x 10 mg) PO HS #180 tabs 03/31/23 catheter 12 Fr (Bard Coude Tip #60 ea 07/01/23 Catheter) montelukast 10 mg tablet 10 mg PO DAILY #90 tab-caps 07/01/23 (Singulair) Breo Ellipta 200 mcg-25 mcg/dose 1 inh inhalation DAILY #180 ea 07/06/23 powder for inhalation (fluticasone furoate-vilanterol) epinephrine 0.3 mg/0.3 mL 0.3 mg (0.3 mL) IM ONCE PRN 01/31/24 injection, auto-injector (EpiPen bronchodilation #2 pens 2-Raji) fluticasone propionate 50 1 spray intranasal DAILY PRN nasal 01/31/24 mcg/actuation nasal congestion #16 grams spray,suspension ibuprofen 600 mg tablet 600 mg PO Q6H PRN #30 tab-caps 01/31/24 levalbuterol tartrate 45 2 inh inhalation TID #15 grams 04/08/24 mcg/actuation aerosol inhaler (Xopenex HFA) levofloxacin 750 mg tablet 750 mg PO DAILY 5 days #5 tabs 04/16/24 prednisone 20 mg tablet 40 mg (2 x 20 mg) PO DAILY 4 days 04/16/24 #8 tabs Allergies Allergy/AdvReac Type Severity Reaction Status Date / Time Beef Containing Products Allergy Severe Throat Verified 03/21/24 09:02 swelling cheese Allergy Severe Throat Verified 03/21/24 09:02 swelling egg Allergy Severe SOB, Hives Verified 03/21/24 09:02 fluticasone propionate (From Allergy Severe Anaphylaxsi Verified 03/21/24 09:02 Advair Diskus) s latex Allergy Severe HIVES/SOB Verified 03/21/24 09:02 Pork/Porcine Containing Allergy Severe GI upset Verified 03/21/24 09:02 Products Sulfa (Sulfonamide Allergy Severe HIVES/VOMIT Verified 03/21/24 09:02 Antibiotics) ING bacitracin (From Triple Allergy Intermediate RASH Verified 03/21/24 09:02 Antibiotic) budesonide (From Symbicort) Allergy Intermediate Hives Verified 03/21/24 09:02 cat dander Allergy Intermediate Unknown Verified 03/21/24 09:02 colistimethate sodium (From Allergy Intermediate RASH Verified 03/21/24 09:02 Triple Antibiotic) dog dander Allergy Intermediate Unknown Verified 03/21/24 09:02 famotidine Allergy Intermediate Facial Verified 03/21/24 09:02 swelling formoterol fumarate (From Allergy Intermediate Hives Verified 03/21/24 09:02 Symbicort) gemfibrozil Allergy Intermediate Skin Rash Verified 03/21/24 09:02 gramicidin D (From Triple Allergy Intermediate RASH Verified 03/21/24 09:02 Antibiotic) neomycin sulfate (From Allergy Intermediate RASH Verified 03/21/24 09:02 Triple Antibiotic) polymyxin B (From Triple Allergy Intermediate RASH Verified 03/21/24 09:02 Antibiotic) pramoxine HCl (From Triple Allergy Intermediate RASH Verified 03/21/24 09:02 Antibiotic) ranitidine Allergy Intermediate Rash Verified 03/21/24 09:02 salmeterol xinafoate (From Allergy Intermediate Hives Verified 03/21/24 09:02 Advair Diskus) ciprofloxacin Allergy Unknown Skin Rash Verified 03/21/24 09:02 doxycycline Allergy Unknown Skin Rash Verified 03/21/24 09:02 ezetimibe (Ezetimibe) Allergy Unknown SKIN RASH Verified 03/21/24 09:02 black pepper AdvReac Severe hives Verified 03/21/24 09:02 atorvastatin AdvReac Intermediate Diarrhea Verified 03/21/24 09:02 fenofibrate AdvReac Intermediate YEAST Verified 03/21/24 09:02 INFECTION/COUGH Fish Containing Products AdvReac Intermediate Skin Rash Verified 03/21/24 09:02 morphine AdvReac Intermediate NAUSEA AND Verified 03/21/24 09:02 VOMITING niacin AdvReac Intermediate Chest pain Verified 03/21/24 09:02 omeprazole AdvReac Intermediate Chest Pain Verified 03/21/24 09:02 tramadol AdvReac Intermediate VOMITING Verified 03/21/24 09:02 azithromycin AdvReac Unknown DIARRHEA Verified 03/21/24 09:02 influenza virus vaccine, AdvReac Unknown PNEUMONIA Verified 03/21/24 09:02 specific FOR 7 MONTHS. Dkmlxid-SLL-YpX Reductase AdvReac Unknown Hives, Verified 03/21/24 09:02 Inhibitor (Zqxzruq-Zld-Cqz vomiting Reductase Inhibitor) oxybutynin AdvReac swelling, Verified 03/21/24 09:02 headache, backaches. TREES Allergy Intermediate Eye/face Uncoded 03/21/24 09:02 swelling, Hives erythromycin Allergy Mild Itching Uncoded 03/21/24 09:02 General Stated Complaint: RespSymp MANOJ: 4 Course Vital Signs Vital signs: Vital Signs Temperature 37.3 C 04/16/24 10:38 Pulse 75 04/16/24 10:38 Respiratory Rate 24 04/16/24 10:38 Blood Pressure 129/79 04/16/24 10:38 Pulse Oximetry 91 L 04/16/24 10:38 Temperature 37.3 C 04/16/24 10:38 Temperature Source Temporal Artery Scan 04/16/24 10:38 Pulse 75 04/16/24 10:38 Respiratory Rate 24 04/16/24 10:38 Respiratory Effort Normal, Non-Labored 04/16/24 10:53 Respiratory Depth Normal 04/16/24 10:53 Blood Pressure 129/79 04/16/24 10:38 Blood Pressure Position Sitting 04/16/24 10:38 Pulse Oximetry 91 L 04/16/24 10:38 Oxygen Delivery Method Room Air 04/16/24 10:38 Oxygen Flow Rate 0 04/16/24 10:38 Lab/Test Results Lab/Test Results: Laboratory Tests Range/Units 04/16/24 10:33 COVID-19 Source Cancelled SARS-CoV-2 (PCR) Cancelled Influenza Type A (PCR) Cancelled Influenza Type B (PCR) Cancelled RSV (PCR) Cancelled Medical Decision Making Quality:SDOH Health Related Social Needs: No Data to Display PFSH All Active Problems (Updated 04/16/24 @ 11:48 by Marybel Shelby MD) Pneumonia (Acute) Annual physical exam (Acute) Chondromalacia, right shoulder (Acute) Superior labrum [id number]-[id number] (SLAP) tear of right shoulder (Acute) Sinus congestion (Acute) Bladder squamous metaplasia (Acute) Pre-diabetes (Acute) Rotator cuff tear (Acute) Angioedema (Acute 12/03/14) Depressive disorder (Acute) Vaginal atrophy (Chronic 10/19/17) Neurogenic bladder (Chronic) CATHETERIZES EVERY 2-4 HOURS neurogenic colon Hyperlipidemia (Chronic) unable to tolerate statins Chronic cough (Chronic 03/25/15) Asthma (Chronic) Medical History Vertigo Thrush Encounter for HCV screening test for high risk patient Screening for HIV (human immunodeficiency virus) Encounter for screening colonoscopy Fall Gross hematuria Magda albicans infection Vaginitis Advanced care planning/counseling discussion Tick bite Cellulitis of chin Visit for wound check Cellulitis of chin Cellulitis Laceration Contusion PND (post-nasal drip) Calcific tendinitis of left shoulder Esophageal yeast infection Bursitis of left shoulder Tendinitis of long head of biceps brachii of left shoulder Adhesive capsulitis of left shoulder Shoulder pain, left Epigastric pain (04/11/15) Episodic mood disorder Fatigue (01/06/12) Increased serum lipase level (04/23/15) Piriformis muscle pain (06/25/15) Rectal hemorrhage (07/30/15) Smoker Unspecified episodic mood disorder Depressive disorder Smoker Fatigue 01/06/12 Giant hives 12/03/14 Epigastric pain 04/11/15 Nausea with vomiting, unspecified 04/23/15 Elevated lipase 04/23/15 Piriformis muscle pain 06/25/15 Rectal bleeding 07/30/15 Lung nodule < 6cm on CT 12/03/15 f/u in 8 mos--f/u neg for nodules 05/22 Vesicoureteric reflux S/P VALVE REPLACEMENT Urolithiasis (08/06/16) 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 S/P laparoscopic hysterectomy H/O surgical procedure s/p valve replacement to repair vesicuoureteral reflux History of oophorectomy, unilateral 12/13/13 right History of bilateral tubal ligation 12/13/13 Ligation of fallopian tube (~1997) PROCEDURES VESICULOURETERAL REFLUX S/P VALVE EPLACEMENT; 08/06/16 CYSTOSCOPY;B/L RETROGRADE PYELOGRAM;B/L FLEXIBLE URETEROSCOPY Oophrectomy, Right Hysterectomy, Laproscopic (~1997) prolapsed uterus Colonoscopy - MAC CLUB FOOT RELEASE LEFT BIOPSYS Family History Mother Diabetes Essential hypertension Hyperlipidemia Stroke Asthma Sister Hyperlipidemia Asthma Maternal Grandfather Cancer Paternal Grandfather No problems noted. Maternal Grandmother Diabetes Hyperlipidemia Stroke Breast cancer Paternal Grandmother Essential hypertension Diabetes Hyperlipidemia Stroke Cancer Brother Spine degeneration Asthma Sister Cervical cancer Son Asthma Social History Smoking/Tobacco Use Status: Former Tobacco Use tobacco type: cigarettes Quit Date: 03/08/19 Tobacco: How many years used: 25 Second Hand Exposure: Yes Smoking risk assessment performed?: Yes Alcohol Intake: never Drug use: Never Substance use type: does not use Caregiver/Support person: No Household members: none Housing: house Do you need help understanding health information?: Never Pets and animals: Yes Pets and animals: cat(s), dog(s), bird(s) and farm animals Sexually active: No Do you think of yourself as: straight/heterosexual Current gender identity: female What is your relationship status?: refused to answer How often do you talk on the phone with friends or family?: twice per week How often do you get together with friends or relatives?: decline to answer How often do you attend anabaptism or sikhism services?: decline to answer Do you belong to any clubs or organized social groups?: no Panel score (0-1 are the most socially isolated patients): 0 What type of physical activity do you participate in: walking Duration: 45-60 minutes/day Frequency: daily Mitzi/Nondenominational: None Special mitzi needs: No Seatbelt use: always Helmet use: No Drive intox or ride w/intox school bus driver/teacher assistant: No Do you feel safe at home: Yes Do you feel safe in your relationship?: Yes
[2024-04-16 11:09] VITALS: PULSE 71; RESP 20; RESP 5; O2SAT 94
[2024-04-16] MEDS: predniSONE 20 MG TAB 40 MG PO (11:09)
[2024-04-16] MEDS: Albuterol/Ipratropium 3 ML UPD VIAL UPD (11:09)
--- NOTE | 2024-04-16 11:40 | DI.VRAD_ITS ---
PROCEDURE INFORMATION: Exam: XR Chest Exam date and time: 04/16/2024 11:27 AM Age: 54 years old Clinical indication: Other: Cough HX asthma TECHNIQUE: Imaging protocol: Radiologic exam of the chest. Views: 2 views. COMPARISON: CT CHEST LUNG CANCER SCREEN 07/21/2022 12:58 PM FINDINGS: Lungs: Opacity in the right lower lobe may represent atelectasis or pneumonia.. Pleural spaces: Unremarkable. No pleural effusion. No pneumothorax. Heart/Mediastinum: Unremarkable. No cardiomegaly. Bones/joints: Unremarkable. IMPRESSION: Opacity in the right lower lobe may represent atelectasis or pneumonia.. Dictated and Authenticated by: Quentin Lawrence MD. Orderin [facility]ang No MD
[2024-04-16 11:55] VITALS: BP 117/61; PULSE 73; RESP 18; O2SAT 94
== END 2024-04-16 11:58 | disposition home or self-care (01) ==
PROVIDERS: Emergency Provider Emergency Medicine; PCP Family Medicine
DX: J18.9 Pneumonia, unspecified organism (principal); J45.909 Unspecified asthma, uncomplicated; I10 Essential (primary) hypertension; E78.5 Hyperlipidemia, unspecified; Q05.7 Lumbar spina bifida without hydrocephalus; Z87.891 Personal history of nicotine dependence
CPT/HCPCS: 87637; 94640; 99284; 71046; J7512; J7620

== ENCOUNTER 2024-05-03 13:28 | Outpatient (CLI) | payer MEDICARE, MEDICAID, SELFPAY ==
--- NOTE | 2024-05-03 11:45 | DI.RAD_ITS ---
Exam(s) XR CHEST 2V PA LATERAL EXAM: XR CHEST 2V PA LATERAL CLINICAL HISTORY: cough, monitor pneumonia J18.9 TECHNIQUE: 2D digital imaging was performed. Two views. COMPARISON: CR,XR XR CHEST 2V PA LATERAL from 04/16/2024 FINDINGS: HEART: Normal size. Aorta: Not dilated. PULMONARY VASCULATURE: Normal. MEDIASTINUM: Unremarkable. LUNGS: Clear. PLEURAL SPACE: No pleural effusion or pneumothorax. BONE:Unremarkable for age. SOFT TISSUES: Unremarkable. IMPRESSION: No acute abnormality. DATA REPOSITORY: RADIATION DOSE DELIVERED:
== END 2024-05-03 13:48 ==
LOC: DI 13:30
PROVIDERS: PCP Family Medicine; Visit Provider Physician Assistant
DX: J18.9 Pneumonia, unspecified organism (principal)
CPT/HCPCS: 71046

== ENCOUNTER 2024-05-18 08:58 | Outpatient (CLI) | payer MEDICARE, MEDICAID, SELFPAY ==
--- NOTE | 2024-05-18 08:15 | DI.RAD_ITS ---
Exam(s) XR SHOULDER LT COMPLETE 2+V EXAM: XR SHOULDER LT COMPLETE 2+V CLINICAL HISTORY: left shoulder pain,m25.512. TECHNIQUE: 2D digital imaging was performed of the left shoulder. Five images were obtained. AP, G rashey, Y-view and axillary views were obtained. COMPARISON: CR XR SHOULDER LT COMPLETE 2+V from 01/24/2020 FINDINGS: BONES: No acute fracture is present. No bony destructive lesion is seen. JOINTS: No dislocation present. There are mild degenerative changes seen at both the acromioclavicula r and glenohumeral joints. SOFT TISSUE: Normal. IMPRESSION: Mild degenerative changes of the left shoulder. DATA REPOSITORY: RADIATION DOSE DELIVERED:
== END 2024-05-18 09:18 ==
LOC: DI 08:59
PROVIDERS: PCP Family Medicine; Visit Provider Family Medicine
DX: M25.512 Pain in left shoulder (principal)
CPT/HCPCS: 73030

== ENCOUNTER 2024-06-12 02:04 | Outpatient (CLI) | payer MEDICARE, MEDICAID, SELFPAY ==
--- NOTE | 2024-06-12 07:15 | DI.US_ITS ---
Exam(s) US RENAL EXAM: US RENAL CLINICAL HISTORY: ? hydronephrosis,neurogenic bladder,n31.9. TECHNIQUE: Renteria scale, color and spectral Doppler were used. COMPARISON: US US RENAL from 10/18/2023 FINDINGS: Right kidney: 11.5cm Echogenicity: Normal Hydronephrosis: No Cyst or mass: No Nephrolithiasis: No Left kidney: 8.3cm Echogenicity: Normal Hydronephrosis: No Cyst or mass: No Nephrolithiasis: No Bladder:Normal. Prevoid vol:696 cc Postvoid vol:0 cc IMPRESSION: Negative renal ultrasound. DATA REPOSITORY:
== END 2024-06-12 02:24 ==
LOC: DI 02:04
PROVIDERS: PCP Family Medicine; Visit Provider Urology
DX: N31.9 Neuromuscular dysfunction of bladder, unspecified (principal)
CPT/HCPCS: 76770

== ENCOUNTER → 2024-06-14 10:30 | Outpatient (BNVA) | payer MEDICARE, MEDICAID, SELFPAY | PROVIDERS: PCP Family Medicine; Referring Provider Family Medicine; Visit Provider Student in an Organized Health Care Education/Training Program | DX: M75.52 Bursitis of left shoulder (principal) | CPT/HCPCS: 20610; 99213; J1010 ==

== ENCOUNTER 2024-07-25 02:33 | Outpatient (CLI) | payer MEDICARE, MEDICAID, SELFPAY ==
[2024-07-25 14:08] LABS: ALT 20 U/L (14-59); AST 14 U/L (15-37); Albumin 3.6 g/dL (3.4-5.0); Alkaline Phosphatase 82 U/L (46-116); Anion Gap 5.8 mmol/L (3-11); BUN 10 mg/dL (7-18); Bilirubin, Total 0.2 mg/dL (0.2-1.0); CO2 31.2 mmol/L (21.0-32.0); Calcium 9.2 mg/dL (8.5-10.1); Chloride 104 mmol/L (98-107); Estimated GFR 67.36 (mL/min/1.73m2); Glucose 105 mg/dL (74-106); Potassium 4.1 mmol/L (3.5-5.1); Sodium 141 mmol/L (136-145); Total Protein 7.8 g/dL (6.4-8.2); Vitamin B12 379 pg/mL (193-986)
== END 2024-07-25 02:34 | disposition home or self-care (01) ==
LOC: LBO 02:33
PROVIDERS: PCP Family Medicine; Visit Provider Family Medicine
DX: I10 Essential (primary) hypertension
CPT/HCPCS: 36415; 80053; 82607

== ENCOUNTER 2024-08-07 02:52 | Outpatient (CLI) | payer MEDICARE, MEDICAID, SELFPAY ==
--- NOTE | 2024-08-07 09:00 | DI.MRI_ITS ---
Exam(s) MR UPPER JOINT LT WO EXAM: MR UPPER JOINT LT WO CLINICAL HISTORY: lt shoulder pain,bursitis,m25.512,m75.52. TECHNIQUE: Multiplanar multisequence MRI was performed. COMPARISON: MR MR UPPER JOINT LT WO from 10/20/2019 CR XR SHOULDER LT COMPLETE 2+V from 05/18/2024 FINDINGS: BONES: There is no fracture or contusion pattern. JOINTS: There are mild degenerative changes seen at the acromioclavicular joint. There also mild deg enerative changes seen at the glenohumeral joint with loss of the articular cartilage. TENDONS: Supraspinatus: There is no evidence of a supraspinatus tendon tear. Infraspinatus: Unremarkable. Subscapularis: Unremarkable. Teres Minor: Unremarkable. Biceps and [place]: Unremarkable. MUSCLES: Unremarkable. GLENOID LABRUM: There is mild intermediate signal in the superior and posterior labrum which may repr esent degeneration. SOFT TISSUES: Unremarkable. LIGAMENTS: Unremarkable. OTHER: Subacromial and subdeltoid bursae are unremarkable. IMPRESSION: 1. No evidence of a rotator cuff tear. 2. Mild intermediate signal seen in the posterior superior labrum which may represent degeneration. Tear cannot be entirely excluded. Follow-up as clinically appropriate. 3. Degenerative changes seen at the acromioclavicular and glenohumeral joints. DATA REPOSITORY:
== END 2024-08-07 03:12 ==
LOC: DI 02:52
PROVIDERS: PCP Family Medicine; Visit Provider Student in an Organized Health Care Education/Training Program
DX: M25.512 Pain in left shoulder (principal); M75.52 Bursitis of left shoulder
CPT/HCPCS: 73221

== ENCOUNTER 2024-08-07 15:59 | Outpatient (REF) | payer MEDICARE, MEDICAID, SELFPAY ==
[2024-08-07 08:51] LABS: Bilirubin Negative (Negative); Blood Negative (Negative); Clarity Clear (Clear); Glucose Negative (Negative); Ketones Negative (Negative); Leukocyte Esterase Negative (Negative); Nitrite Negative (Negative); Urobilinogen 0.2 mg/dL (Up to 0.2)
== END 2024-08-07 16:00 | disposition home or self-care (01) ==
LOC: LBN 15:59
PROVIDERS: PCP Family Medicine; Visit Provider Urology
DX: N31.9 Neuromuscular dysfunction of bladder, unspecified (principal)
CPT/HCPCS: 81003; 87086

== ENCOUNTER → 2024-08-09 08:31 | Outpatient (BNVA) | payer MEDICARE, MEDICAID, SELFPAY | PROVIDERS: PCP Family Medicine; Referring Provider Family Medicine; Visit Provider Student in an Organized Health Care Education/Training Program | DX: M94.212 Chondromalacia, left shoulder (principal); M19.012 Primary osteoarthritis, left shoulder | CPT/HCPCS: 99213 ==

== ENCOUNTER 2024-09-01 00:22 | Outpatient (CLI) | payer MEDICARE, MEDICAID, SELFPAY ==
--- NOTE | 2024-09-01 07:00 | DI.DEXA_ITS ---
Exam(s) XR DEXA BONE DENSITY W/WO IGOR EXAM: XR DEXA BONE DENSITY W/WO IGOR CLINICAL HISTORY: post menopausal STATUS, Z78.0 TECHNIQUE: COMPARISON: No exams were available for comparison FINDINGS: Lateral Spine Image: Unremarkable. No compression deformities identified. Left hip: Total T-Score: -0.4 Total Z-Score: 0.2 T- and Z-scores: Within normal limits. Lumbar Spine: Total T-Score: 1.0 Total Z-Score: 2.0 T- and Z-scores: Within normal limits. IMPRESSION: No evidence of osteoporosis.
--- NOTE | 2024-09-01 07:09 | DI.MAMMO_ITS ---
Exam(s) MAMMO SCREENING EXAM: MAMMO SCREENING CLINICAL HISTORY: screening, Z12.39 TECHNIQUE: Bilateral full field digital CC and MLO mammographic images were obtained with 3D tomosynthesis and utilizing computer aided detection (CAD). COMPARISON: Comparison is made with prior examinations. FINDINGS: Masses/Architectural Distortion: No suspicious masses or areas of architectural distortion are present. Microcalcifications: No suspicious pleomorphic-type are seen. Skin Thickening/Nipple Retraction: None. IMPRESSION: 1. No significant interval change with no specific features of malignancy noted. 2. Unless there is more urgent need, screening mammography is recommended, as per [place] [employer] guidelines. BI-RADS Category 1 - Negative Breast Density - Category B - There are scattered areas of fibroglandular density. Breast density Category C or D implies that the patient has dense breast tissue. Dense breast tissue can make it harder to find cancer on a mammogram. Dense breast tissue is also associated with an increased risk of breast cancer. This information about the result of the mammogram report was provided to the patient to raise their awareness. Use this report when you speak with the patient about their risks for breast cancer, which includes their family history. At that time, you may recommend additional screening tests (Ultrasound or MRI) as these tests may add significant information. A negative radiographic report should not delay biopsy if a dominant or clinically suspicious mass is present. Up to ten percent of cancers are not identified on mammography. A negative report may reinforce clinical impression. Adenosis and dense breasts may obscure an underlying neoplasm. False positive reports average 6 to 10%. Patient will receive a letter notifying them of these results.
== END 2024-09-01 00:42 ==
LOC: DI 00:22
PROVIDERS: PCP Family Medicine; Visit Provider Family Medicine
DX: Z12.31 Encounter for screening mammogram for malignant neoplasm of breast (principal); Z78.0 Asymptomatic menopausal state; Z13.820 Encounter for screening for osteoporosis
CPT/HCPCS: 77063; 77067; 77080

== ENCOUNTER 2024-09-01 00:51 | Outpatient (CLI) | payer MEDICARE, MEDICAID, SELFPAY ==
[2024-09-01 10:17] LABS: HCT 45.8 % (36.0-46.0); HGB 14.8 g/dL (11.2-15.7); MCH 29.8 pg (27.0-33.0); MCHC 32.3 % (32.0-36.0); MCV 92 fL (80-95); MPV 8.9 fL (8.0-11.0); Platelet Count 383 10^3/uL (130-400); RBC 4.96 10^6/uL (3.93-5.22); RDW 13.6 % (11.7-14.6); RDW-SD 46.4 fL; WBC 10.23 10^3/uL (4.4-10.8)
[2024-09-01 11:11] LABS: TSH (W/Ref FT4) 1.04 uIU/mL (0.36-3.74)
== END 2024-09-01 00:52 | disposition home or self-care (01) ==
PROVIDERS: PCP Family Medicine; Visit Provider Family Medicine
DX: E03.9 Hypothyroidism, unspecified (principal); R53.83 Other fatigue
CPT/HCPCS: 36415; 85027; 84443

== ENCOUNTER 2024-10-10 16:25 | Outpatient (REF) | payer MEDICARE, MEDICAID, SELFPAY ==
[2024-10-10 17:16] LABS: Glucose Negative (Negative)
== END 2024-10-10 16:26 | disposition home or self-care (01) ==
LOC: LBN 16:25
PROVIDERS: PCP Family Medicine; Visit Provider Urology
DX: R10.9 Unspecified abdominal pain (principal); N31.9 Neuromuscular dysfunction of bladder, unspecified
CPT/HCPCS: 87077; 81003; 87086; 87186

== ENCOUNTER 2024-10-24 09:51 | Outpatient (CLI) | payer MEDICARE, MEDICAID, SELFPAY ==
[2024-10-24 12:49] LABS: Glucose Negative (Negative)
[2024-10-24 12:58] LABS: C & S Indicated? No; RBC 0-2 HPF (0-2); WBC Negative HPF (0-5)
== END 2024-10-24 09:52 | disposition home or self-care (01) ==
LOC: LOS 09:53
PROVIDERS: PCP Family Medicine; Visit Provider Urology
DX: N39.0 Urinary tract infection, site not specified (principal)
CPT/HCPCS: 81003; 81015

== ENCOUNTER → 2025-01-24 02:05 | Outpatient (CLI) | payer MEDICARE, MEDICAID, SELFPAY ==
--- NOTE | 2025-01-24 06:45 | DI.NM_ITS ---
Exam(s) NM MAG 3 RENOGRAM W LASIX CLINICAL HISTORY: monitor renal function,NEUROGENIC BLADDER,N31.9,N13.5,UPJ OBSTRUCTION. COMPARISON: NM NM MAG 3 RENOGRAM W LASIX from 10/12/2023 EXAMINATION: Dose: 9 mCi Tc-99m MAG3 Images obtained: Immediately for 1 minute followed by dynamic for 45 minutes. 37mg Lasix was administered after peak uptake in the renal cortex at approximately 13 min. FINDINGS: Split renal function: Right: 62.2 % Left: 37.8 % For complete note that there is a significant size discrepancy between the kidneys as seen on today's and prior ultrasound. The right kidney measures 11.3 cm length; the left kidney measures 8.8 cm length. Time to peak activity in both kidneys is normal range. Right: 2 minutes min (< 5 min normal) Left: 2 minutes min (< 5 min normal) Time activity curve: Right: T1/2 (Lasix to half-Lasix) 2.4 min Left: T1/2 (Lasix to half-Lasix) 2.8 min The pre Lasix injection time activity curve reveals no significant delay in the washout of the left collecting system. However, on the right side there is a less deep slope which become steeper following injection of Lasix. This is a visible change when compared to the prior similar study of October 2023. IMPRESSION: Compared to the prior study of October 2023 there is now subtle evidence for an element of mild obstruction on the right side. This is commensurate with the findings on today's ultrasound examination which reveals very mild unilateral hydronephrosis on the right side.
--- NOTE | 2025-01-24 06:45 | DI.US_ITS ---
Exam(s) US RENAL EXAM: US RENAL CLINICAL HISTORY: ? hydronephrosis,NEUROGENIC BLADDER,N31.9 TECHNIQUE: Ultrasound of both kidneys performed using standard protocol. COMPARISON: US US RENAL from 06/12/2024 FINDINGS: RIGHT KIDNEY: Measures 11.3 cm in length. No cysts evident. Normal cortical thickness and corticomedullary differentiation .No solid masses No intrarenal calculi. Extrarenal pelvis noted. LEFT KIDNEY: Measures 8.8 cm in length. No cysts evident. Normal cortical thickness and corticomedullary differentiaion. No solids masses. No intrarenal calculi nor hydonephrosis. URINARY BLADDER: Prevoid volume is 753 cc Postvoid volume is 0 cc No evidence of bladder mass nor diverticuli. Ureterovesical jets: Both jets were not visualized. IMPRESSION: 1. No significant focal findings in the kidneys. Size discrepancy between the kidneys is again noted, unchanged. 2. Extrarenal pelvis evident in the right kidney versus is very mild hydronephrosis. Similar finding not seen on the left side. 3. Volumes as above.. DATA REPOSITORY:
[2025-01-24] MEDS: Furosemide 40 MG/4 ML VIAL IJ (10:17)
== END ==
PROVIDERS: PCP Family Medicine; Visit Provider Urology
DX: N13.39 Other hydronephrosis (principal)
CPT/HCPCS: 76770; 78708; A9540; J1938

== ENCOUNTER → 2025-02-19 00:15 | Outpatient (CLI) | payer MEDICARE, MEDICAID, SELFPAY ==
--- NOTE | 2025-02-19 09:33 | DI.RAD_ITS ---
Exam(s) XR SHOULDER RT COMPLETE 2+V EXAM: XR SHOULDER RT COMPLETE 2+V CLINICAL HISTORY: fell on r shoulder,RT SHOULDER PAIN,M25.511. TECHNIQUE: 2D digital imaging was performed of the right shoulder. Four images were obtained. AP, Grashey, Y-view and axillary views were obtained. COMPARISON: CR XR SHOULDER RT COMPLETE 2+V from 11/26/2023 FINDINGS: BONES: No acute fracture is present. No bony destructive lesion is seen. JOINTS: No dislocation present. There are mild degenerative changes seen at both the acromioclavicular and glenohumeral joints. SOFT TISSUE: Normal. IMPRESSION: There is no acute fracture or dislocation. DATA REPOSITORY: RADIATION DOSE DELIVERED:
== END ==
LOC: DI 00:15
PROVIDERS: PCP Family Medicine; Visit Provider Family Medicine
DX: M25.511 Pain in right shoulder (principal)
CPT/HCPCS: 73030

== ENCOUNTER 2025-02-19 10:41 | Outpatient (CLI) | payer MEDICARE, MEDICAID, SELFPAY ==
[2025-02-19 11:15] LABS: Abs Immature Grans 0.02 10^3/uL (0.0-0.06); HCT 44.2 % (36.0-46.0); HGB 14.5 g/dL (11.2-15.7); Immature Grans % 0.2 %; MCH 30.0 pg (27.0-33.0); MCHC 32.8 % (32.0-36.0); MCV 91 fL (80-95); MPV 9.2 fL (8.0-11.0); Platelet Count 367 10^3/uL (130-400); RBC 4.84 10^6/uL (3.93-5.22); RDW 13.8 % (11.7-14.6); RDW-SD 46.8 fL; WBC 8.06 10^3/uL (4.4-10.8)
[2025-02-19 11:25] LABS: ESR 16 mm/hr (0-30)
[2025-02-19 11:30] LABS: C-Reactive Protein < 0.50 mg/dL (<=0.50)
[2025-02-19 11:33] LABS: ALT 14 U/L (10-49); AST 15 U/L (<34); Albumin 4.2 g/dL (3.2-5.0); Alkaline Phosphatase 74 U/L (46-116); Anion Gap 6.7 mmol/L (3-11); BUN 10 mg/dL (9-23); Bilirubin, Total 0.3 mg/dL (0.2-1.2); CO2 27.3 mmol/L (20.0-31.0); Calcium 8.7 mg/dL (8.3-10.6); Chloride 110 mmol/L (98-107); Glucose 95 mg/dL (74-106); Potassium 4.0 mmol/L (3.5-5.1); Sodium 144 mmol/L (136-145); Total Protein 7.1 g/dL (5.7-8.2)
== END 2025-02-19 10:42 | disposition home or self-care (01) ==
LOC: LBO 10:41
PROVIDERS: PCP Family Medicine; Visit Provider Urology
DX: N31.9 Neuromuscular dysfunction of bladder, unspecified (principal)
CPT/HCPCS: 36415; 80053; 85652; 85025; 86140